=== PATIENT | male | born 1945 | race Caucasian/White ===

== ENCOUNTER → 2018-01-11 07:17 | Outpatient (CLI) | payer MEDICARE, BC, SELFPAY | PROVIDERS: PCP Specialist/Technologist Athletic Trainer; Visit Provider Surgery | DX: T81.4XXD Infection following a procedure, subsequent encounter (principal); K55.031 Focal (segmental) acute (reversible) ischemia of large intestine; K56.2 Volvulus; K65.8 Other peritonitis; A41.9 Sepsis, unspecified organism; K63.1 Perforation of intestine (nontraumatic) | CPT/HCPCS: 97607 ==

== ENCOUNTER → 2018-02-15 14:49 | Outpatient (BNVA) | payer MEDICARE, BC, SELFPAY | PROVIDERS: PCP Specialist/Technologist Athletic Trainer; Visit Provider Surgery | DX: T81.89XD Other complications of procedures, not elsewhere classified, subsequent encounter (principal) | CPT/HCPCS: 99212 ==

== ENCOUNTER 2018-12-06 14:08 | Inpatient (IN) | payer MEDICARE, BC, SELFPAY ==
[2018-12-06] VITALS (23 sets, daily range): BP systolic 105–157; BP diastolic 57–74; PULSE 90–120; RESP 15–25; TEMP 36.8–38.9; O2SAT 89–95
--- NOTE | 2018-12-06 15:18 | DI.CT_ITS ---
SYMPTOM/DIAGNOSIS: LEFT LOWER INGUINAL PAIN, ? STRANGULATED HERNIA ABDOMINAL AND PELVIC CT: 12/06 CT examination of the abdomen and pelvis was performed with a bolus infusion of 100 cc Omnipaque 350. Images obtained through the lung bases show fibrotic changes. There is diffuse bony demineralization without evidence of acute lumbar spine fracture. Liver is unremarkable in appearance except for a couple tiny low attenuation right hepatic lobe lesions consistent with small cysts or hemangioma. Spleen is unremarkable in appearance. Pancreas appears normal. Gallbladder and bile ducts are CT normal. Abdominal aorta is of normal diameter and no major vascular abnormality is seen. Probable tiny bilateral renal cysts noted. Renal vascular calcification noted on the left. No evidence of hydronephrosis or nephrolithiasis. Urinary bladder has a somewhat thickened wall. Tiny bilateral fat containing inguinal hernias noted. There has apparently been a right hemicolectomy and ileocolonic anastomosis. No evidence of obstruction at the anastomotic site. Diffuse distension of colon and small bowel noted. No definite transition point identified in small bowel or colon. Findings may represent ileus. No gross abdominal or pelvic adenopathy seen. No free intraperitoneal air seen. CONCLUSION: Findings suggesting ileus, early obstruction of small or large bowel not entirely excluded but unlikely Appropriate follow up studies requested.
--- NOTE | 2018-12-06 15:21 | W.ED.GENAD ---
Discharge Plan Disposition Patient Disposition: [facility] INPATIENT Condition: Stable Discharge Details Chief Complaint: Cellulitis Clinical Impression: Left inguinal pain, SBO (small bowel obstruction) Primary Care Provider: Castillo Kearns ED Provider: Raf Solis Home Meds and New Rx's Prescriptions: No Action atorvastatin [Lipitor] 20 MG tablet 20 mg PO DAILY RF: 0 amlodipine 10 MG tablet 10 mg PO DAILY RF: 0 sildenafil [Viagra] 25 MG tablet 20 mg PO PRN PRNRF: 0 aspirin [Aspirin Low-Strength] 81 MG tablet,chewable 81 mg PO DAILY RF: 0 multivitamin 1 EACH capsule 1 cap PO DAILY RF: 0 glucosam-chond bx-cbfzio-iq ac 1 EACH capsule 1 tab PO DAILY RF: 0 acetaminophen [Tylenol] 325 MG tablet 650 mg PO Q6H PRN PRNRF: 0 ibuprofen [Advil] 200 mg Tablet 400 mg PO RF: 0 Medical Decision Making 73 yo male comes in with increasing left inguinal area pain for 3 days that worsened today with some overyling rendess. Denies vomit. Has not had a fever. On exam has no pain in the abdomen but has diffuse redness of the left inguinal area and mid inguinal bulge that is extremely tender to touch. I suspect likely strangulated vs incarcerated hernia, will obtain labs and ct imaging to further evaluate for this vs less likely other causes such as abscess. No crepitus to suggest nec fasc pt remains stable, labs show no acute significant findings, awaiting imaging imaging shows no hernia but does have inguinal adenopathy and also has sbo vs ileus, qusetion hernia that resolved. Spoke with Dr. Nina from surgery who will admit for possible sbo and will give dose of iv abx for possible cellulitis in left inguinal region Differential Diagnosis incarcerated hernia, cellulitis, abscess Imaging Data Radiologic Study: Attestation: I personally reviewed and interpreted this imaging study as follows: Imaging: CT Scan Radiologist's impression: IMPRESSION: 1. Differential diagnoses includes: Ileus versus partial small bowel obstruction. No evidence of bowel perforation. Close followup is advised. 2. Nonspecific prominent retroperitoneal and left inguinal lymph nodes. Lab Data Lab results reviewed: Yes I reviewed the patient's lab results. HPI General Mode of arrival: ambulatory. Date/Time Provider Initiated Documentation: 12/06/18 15:09. Limitations to Documentation: no limitations. Information obtained by: patient. History of Present Illness 73 year old M presents to the emergency department with the chief complaint of left inguinal pain , described as moderate and severe, Quality is described as stabbing and aching, and is localized to the abdomen (left inguinal area). Patient started experiencing this day(s) (3) and it has been constant. No relieving factors improve symptom(s), No exacerbating factors reported . Patient notes no other symptoms.. Patient did receive the following treatments prior to arrival, none Related Data Home Medications Medication Instructions Recorded Confirmed amlodipine 10 mg PO DAILY 12/04/17 12/06/18 aspirin [Aspirin Low-Strength] 81 mg PO DAILY 12/04/17 12/06/18 atorvastatin [Lipitor] 20 mg PO DAILY 12/04/17 12/06/18 glucosam-chond at-dnoutk-rq ac 1 tab PO DAILY 12/04/17 12/06/18 multivitamin 1 cap PO DAILY 12/04/17 12/06/18 sildenafil [Viagra] 20 mg PO PRN PRN 12/04/17 12/06/18 acetaminophen [Tylenol] 650 mg PO Q6H PRN PRN tab 12/25/17 12/06/18 ibuprofen [Advil] 400 mg PO 12/06/18 Previous Rx's Medication Instructions Recorded acetaminophen [Tylenol] 650 mg PO Q6H PRN PRN tab 12/25/17 Allergies Allergy/AdvReac Type Severity Reaction Status Date / Time candesartan [From Atacand] Allergy Mild Other (See Verified 12/06/18 14:33 Comment) lisinopril AdvReac Mild Other (See Verified 12/06/18 14:33 Comment) General Stated Complaint: Cellulitis CANDY: 3 Review of Systems Review of Systems All systems reviewed & are unremarkable except as noted in HPI and below Constitutional Denies chills, Denies fever(s) and Denies weakness Cardiovascular Denies chest pain and Denies dyspnea Respiratory Denies cough and Denies dyspnea Gastrointestinal Denies nausea and Denies vomiting Genitourinary Denies dysuria Musculoskeletal Denies joint swelling Neurologic Denies weakness PFSH Social History Smoking/Tobacco Use Status: Current every day Alcohol Intake: current Alcohol Intake frequency: 3 or more drinks per day Substance use type: does not use Do you feel safe at home: Yes Do you feel safe in your relationship?: Yes Exam Const General: no acute distress Orientation: alert HENMT Head: normal to inspection Ears: external ears normal General nose exam: external nose normal Mouth: moist mucous membranes Eyes General: appearance normal, both eyes and all related structures Neck Neck: normal visual inspection Resp Effort & Inspection: normal respiratory effort and able to speak in complete sentences Cardio Rate: regular rate Skin General skin exam: elasticity normal Neuro General: alert and oriented x3 Extrem General: normal to inspection Psych Mental Status: mental status grossly normal Course Vital Signs Temperature 36.8 C 12/06/18 14:29 Pulse 90 12/06/18 14:29 Respiratory Rate 16 12/06/18 14:29 Blood Pressure 144/74 H 12/06/18 14:29 Pulse Oximetry 95 12/06/18 14:29 Temperature 36.8 C 12/06/18 14:29 Temperature Source Temporal Artery Scan 12/06/18 14:29 Pulse 90 12/06/18 14:29 Respiratory Rate 16 12/06/18 14:29 Respiratory Effort 12/06/18 14:36 Blood Pressure 144/74 H 12/06/18 14:29 Pulse Oximetry 95 12/06/18 14:29 Oxygen Delivery Method Room Air 12/06/18 14:29 Oxygen Flow Rate 0 12/06/18 14:29 Pain Level 6 12/06/18 14:29 Lab/Test Results Lab/Test Results: 12/06/18 15:19 Blood Blood Culture - Pending 12/06/18 15:19 Blood Blood Culture - Pending
--- NOTE | 2018-12-06 15:24 | ED.GENADUL_ITS ---
Discharge Plan Disposition Patient Disposition: [facility] INPATIENT Condition: Stable Discharge Details Chief Complaint: Cellulitis Clinical Impression: Left inguinal pain, SBO (small bowel obstruction) Primary Care Provider: Castillo Kearns ED Provider: Raf Solis Home Meds and New Rx's Prescriptions: No Action atorvastatin [Lipitor] 20 MG tablet 20 mg PO DAILY RF: 0 amlodipine 10 MG tablet 10 mg PO DAILY RF: 0 sildenafil [Viagra] 25 MG tablet 20 mg PO PRN PRNRF: 0 aspirin [Aspirin Low-Strength] 81 MG tablet,chewable 81 mg PO DAILY RF: 0 multivitamin 1 EACH capsule 1 cap PO DAILY RF: 0 glucosam-chond sd-sitxmy-ij ac 1 EACH capsule 1 tab PO DAILY RF: 0 acetaminophen [Tylenol] 325 MG tablet 650 mg PO Q6H PRN PRNRF: 0 ibuprofen [Advil] 200 mg Tablet 400 mg PO RF: 0 Medical Decision Making 73 yo male comes in with increasing left inguinal area pain for 3 days that wors ened today with some overyling rendess. Denies vomit. Has not had a fever. On exam has no pain in the abdomen but has diffuse redness of the left inguinal area and mid inguinal bulge that is extremely tender to touch. I suspect likely strangulated vs incarcerated hernia, will obtain labs and ct imaging to further evaluate for this vs less likely other causes such as abscess. No crepitus to suggest nec fasc pt remains stable, labs show no acute significant findings, awaiting imaging imaging shows no hernia but does have inguinal adenopathy and also has sbo vs ileus, qusetion hernia that resolved. Spoke with Dr. Nina from surgery who will admit for possible sbo and will give dose of iv abx for possible cellulitis in left inguinal region Differential Diagnosis incarcerated hernia, cellulitis, abscess Imaging Data Radiologic Study: Attestation: I personally reviewed and interpreted this imaging study as follows: Imaging: CT Scan Radiologist's impression: IMPRESSION: 1. Differential diagnoses includes: Ileus versus partial small bowel obstruction. No evidence of bowel perforation. Close followup is advised. 2. Nonspecific prominent retroperitoneal and left inguinal lymph nodes. Lab Data Lab results reviewed: Yes I reviewed the patient's lab results. HPI General Mode of arrival: ambulatory . Date/Time Provider Initiated Documentation: 12/06/18 15:09 . Limitations to Documentation: no limitations . Information obtained by: patient . History of Present Illness 73 year old M presents to the emergency department with the chief complaint of left inguinal pain , described as moderate and severe, Quality is described as stabbing and aching, and is localized to the abdomen (left inguinal area). Patient started experiencing this day(s) (3) and it has been constant. No relieving factors improve symptom(s), No exacerbating factors reported . Patient notes no other symptoms.. Patient did receive the following treatments prior to arrival, none Related Data Home Medications Medication Instructions Recorded Confirmed amlodipine 10 mg PO DAILY 12/04/17 12/06/18 aspirin [Aspirin Low-Strength] 81 mg PO DAILY 12/04/17 12/06/18 atorvastatin [Lipitor] 20 mg PO DAILY 12/04/17 12/06/18 glucosam-chond dt-izkbcz-iy ac 1 tab PO DAILY 12/04/17 12/06/18 multivitamin 1 cap PO DAILY 12/04/17 12/06/18 sildenafil [Viagra] 20 mg PO PRN PRN 12/04/17 12/06/18 acetaminophen [Tylenol] 650 mg PO Q6H PRN PRN tab 12/25/17 12/06/18 ibuprofen [Advil] 400 mg PO 12/06/18 Previous Rx's Medication Instructions Recorded acetaminophen [Tylenol] 650 mg PO Q6H PRN PRN tab 12/25/17 Allergies Allergy/AdvReac Type Severity Reaction Status Date / Time candesartan [From Atacand] Allergy Mild Other (See Verified 12/06/18 14:33 Comment) lisinopril AdvReac Mild Other (See Verified 12/06/18 14:33 Comment) General Stated Complaint: Cellulitis CANDY: 3 Review of Systems Review of Systems All systems reviewed & are unremarkable except as noted in HPI and below Constitutional Denies chills, Denies fever(s) and Denies weakness Cardiovascular Denies chest pain and Denies dyspnea Respiratory Denies cough and Denies dyspnea Gastrointestinal Denies nausea and Denies vomiting Genitourinary Denies dysuria Musculoskeletal Denies joint swelling Neurologic Denies weakness PFSH Social History Smoking/Tobacco Use Status: Current every day Alcohol Intake: current Alcohol Intake frequency: 3 or more drinks per day Substance use type: does not use Do you feel safe at home: Yes Do you feel safe in your relationship?: Yes Exam Const General: no acute distress Orientation: alert HENMT Head: normal to inspection Ears: external ears normal General nose exam: external nose normal Mouth: moist mucous membranes Eyes General: appearance normal, both eyes and all related structures Neck Neck: normal visual inspection Resp Effort & Inspection: normal respiratory effort and able to speak in complete sentences Cardio Rate: regular rate Skin General skin exam: elasticity normal Neuro General: alert and oriented x3 Extrem General: normal to inspection Psych Mental Status: mental status grossly normal Course Vital Signs Temperature 36.8 C 12/06/18 14:29 Pulse 90 12/06/18 14:29 Respiratory Rate 16 12/06/18 14:29 Blood Pressure 144/74 H 12/06/18 14:29 Pulse Oximetry 95 12/06/18 14:29 Temperature 36.8 C 12/06/18 14:29 Temperature Source Temporal Artery Scan 12/06/18 14:29 Pulse 90 12/06/18 14:29 Respiratory Rate 16 12/06/18 14:29 Respiratory Effort 12/06/18 14:36 Blood Pressure 144/74 H 12/06/18 14:29 Pulse Oximetry 95 12/06/18 14:29 Oxygen Delivery Method Room Air 12/06/18 14:29 Oxygen Flow Rate 0 12/06/18 14:29 Pain Level 6 12/06/18 14:29 Lab/Test Results Lab/Test Results: 12/06/18 15:19 Blood Blood Culture - Pending 12/06/18 15:19 Blood Blood Culture - Pending
[2018-12-06 15:59] LABS: Lactate-non-spesis 1.1 mmol/l (0.6-1.4)
[2018-12-06] MEDS: Ondansetron 4 MG/2 ML VIAL IVP (16:00)
[2018-12-06] MEDS: Normal Saline 1,000 ML 1000 ML IV (16:00)
[2018-12-06 16:01] LABS: Abs Immature Grans 0.01 k/cumm (0.0-0.09); Absolute Basophil Count 0.02 k/cumm (0.0-0.2); Absolute Eosinophil Count 0.04 k/cumm (0.0-0.7); Absolute Lymphocyte Count 0.89 k/cumm (1.2-3.4); Basophils % 0.2; Eosinophils % 0.4; HCT 43.9 % (40.0-50.0); HGB 15.4 g/dL (13.5-17.5); Immature Grans % 0.1; Lymphocytes % 9.4; Mean Corp. HGB Concentration 35.1 g/dL (32.0-36.0); Mean Corpuscular Volume 91.1 fL (80-95); Mean Platelet Volume 10.7 fL (8.0-11.0); Monocytes % 11.6; Neutrophils % 78.3; Platelet Count 200 x1000/uL (130-400); RBC 4.82 m/cumm (4.50-6.00); RBC Distribution Width 14.5 % (11.8-14.1); White Blood Cell Count 9.46 k/cumm (4.4-10.8)
[2018-12-06] MEDS: fentaNYL 100 MCG/2 ML VIAL 75 MCG IVP (16:05)
[2018-12-06 16:13] LABS: PTT Activated 28.2 sec (21.0-31.4); Prothrombin Time 9.8 sec (9.3-11.0)
[2018-12-06 16:27] LABS: ALT 50 U/L (12-78); AST 34 U/L (15-37); Albumin 3.5 g/dL (3.4-5.0); Alkaline Phosphatase 125 U/L (46-116); Anion Gap 12.8 mmol/L (3-11); BUN 12 mg/dL (7-18); Bilirubin, Total 0.6 mg/dL (0.2-1.0); CO2 24.2 mmol/L (21.0-32.0); CREATININE 0.78 mg/dL (0.70-1.30); Chloride 101 mmol/L (98-107); Glucose 113 mg/dL (70-100); Lipase 69 U/L (73-393); Magnesium 1.7 mg/dL (1.8-2.4); Potassium 3.8 mmol/L (3.5-5.1); Sodium 138 mmol/L (136-145); Total Protein 7.7 g/dL (6.4-8.2)
[2018-12-06] MEDS: Omnipaque 350 MG/ML 100 ML BTL IJ (16:48)
--- NOTE | 2018-12-06 17:40 | DI.VRAD_ITS ---
EXAM: CT Abdomen and Pelvis With Contrast EXAM DATE/TIME: 12/06/2018 3:21 PM CLINICAL HISTORY: 73 years old, male; Abdominal pain TECHNIQUE: Imaging protocol: Axial computed tomography images of the abdomen and pelvis with intravenous contrast. Coronal and sagittal reformatted images were created and reviewed. COMPARISON: CT ABD PELVIS WITH CONTRAST 12/16/2017 9:37 AM FINDINGS: Lungs: Stable chronic interstitial lung disease, emphysema, and COPD without acute findings of the lung bases. Liver: Normal. No mass. Gallbladder and bile ducts: Normal. No calcified stones. No ductal dilation. Pancreas: Normal. No ductal dilation. Spleen: Normal. No splenomegaly. Adrenals: Normal. No mass. Kidneys and ureters: Bilateral hypodense renal lesions are too small to small to characterize but most likely benign representing cysts. A crescentic calcification in the left renal hilum is felt to be vascular in etiology. No acute renal findings. No obstructive uropathy. Stomach and bowel: There is diffuse fluid and gaseous dilation of small and large bowel loops seen throughout the abdomen. There are several nondistended segments seen in the right hemiabdomen and left upper quadrant, presumably of small bowel. A gradual transition is seen at the level of the distal ileum on image 48 series 4 and image 44 series 6. Distal rectal air is still present. There is no significant bowel wall thickening appreciated. Small bowel loops measure up to 4.2 cm in greatest diameter. Large bowel measures up to 5.7 cm in diameter at the level of the transverse colon and up to 8.6 cm at the level of the ascending colon. Please note that the patient appears to be status post partial right hemicolectomy. Appendix: There has been an appendectomy. Intraperitoneal space: There is a small amount of fluid versus scarring tracking along the right pelvic sidewall. No pneumoperitoneum. No fluid collections. Vasculature: The vasculature demonstrates diffuse marked atherosclerotic calcification. Lymph nodes: There are several prominent lymph nodes identified in the left inguinal region, as well as in the retroperitoneal and. These are nonspecific. Bladder: Unremarkable as visualized. Reproductive: Unremarkable as visualized. Bones/joints: No acute skeletal pathology. Severe multilevel degenerative changes of the spine, as manifested by multilevel anterior osteophytes and multilevel decrease in intervertebral disc space. Soft tissues: Small bilateral fat-containing inguinal hernias are appreciated. IMPRESSION: 1. Differential diagnoses includes: Ileus versus partial small bowel obstruction. No evidence of bowel perforation. Close followup is advised. 2. Nonspecific prominent retroperitoneal and left inguinal lymph nodes. THIS REPORT CONTAINS FINDINGS THAT MAY BE CRITICAL TO PATIENT CARE. The findings were verbally communicated via telephone conference with Raf Solis at 5:40 PM EDT on 12/06/2018. The findings were acknowledged and understood. Dictated and Authenticated by: Torsten Qureshi MD. Ordering:SENAIT Carbone MD
[2018-12-06] MEDS: cefTRIAXone 2 GM/50 ML BAG IVPB (18:00)
[2018-12-06] MEDS: Lactated Ringers 1,000 ML 75 ML IV (20:24)
[2018-12-06] MEDS: Normal Saline Flush 10 ML SYR IVP (20:24)
[2018-12-06] MEDS: CLINDAMYCIN 600 MG/50 ML BAG 100 MG IVPB (20:24)
[2018-12-06] MEDS: Acetaminophen 325 MG TAB 650 MG PO (23:28)
[2018-12-07] VITALS (11 sets, daily range): BP systolic 90–110; BP diastolic 54–67; PULSE 52–75; RESP 16–20; TEMP 35.9–38.5; O2SAT 92–95
[2018-12-07] MEDS: CLINDAMYCIN 600 MG/50 ML BAG 100 MG IVPB (01:16)
[2018-12-07] MEDS: Normal Saline Flush 10 ML SYR IVP (01:16)
[2018-12-07 07:33] LABS: Abs Immature Grans 0.02 k/cumm (0.0-0.09); Absolute Basophil Count 0.03 k/cumm (0.0-0.2); Absolute Eosinophil Count 0.05 k/cumm (0.0-0.7); Basophils % 0.3; Eosinophils % 0.5; HCT 39.9 % (40.0-50.0); HGB 13.6 g/dL (13.5-17.5); Immature Grans % 0.2; Mean Corp. HGB Concentration 34.1 g/dL (32.0-36.0); Mean Corpuscular Hemoglobin 31.5 pg (27.0-33.0); Mean Corpuscular Volume 92.4 fL (80-95); Mean Platelet Volume 10.7 fL (8.0-11.0); Platelet Count 191 x1000/uL (130-400); RBC 4.32 m/cumm (4.50-6.00); RBC Distribution Width 14.6 % (11.8-14.1); White Blood Cell Count 9.85 k/cumm (4.4-10.8)
[2018-12-07 07:48] LABS: Anion Gap 10.3 mmol/L (3-11); BUN 13 mg/dL (7-18); CO2 23.7 mmol/L (21.0-32.0); CREATININE 0.67 mg/dL (0.70-1.30); Calcium 8.3 mg/dL (8.5-10.1); Chloride 104 mmol/L (98-107); Glucose 94 mg/dL (70-100); Potassium 3.7 mmol/L (3.5-5.1); Sodium 138 mmol/L (136-145)
[2018-12-07 08:15] LABS: Absolute Lymphocyte Count 1.08 k/cumm (1.2-3.4); Absolute Neutrophil Count 7.19 k/cumm (1.2-6.7)
[2018-12-07 08:16] LABS: Absolute Monocyte Count 1.58 k/cumm (0.11-0.7); Atypical Lymphocytes % 1; Diff Comment Manual Differential; RBC Morphology Normal
[2018-12-07] MEDS: Aspirin 81 MG CHEW PO (08:18)
[2018-12-07] MEDS: Atorvastatin 20 MG TAB PO (08:18)
[2018-12-07] MEDS: amLODIPine 10 MG TAB PO (08:18)
[2018-12-07] MEDS: Acetaminophen 325 MG TAB 650 MG PO ×2 (08:43→14:33)
[2018-12-07] MEDS: PIPERACILLIN/TAZO 3.375 GM in Normal Saline 50 ML IVPB ×3 (08:43→19:57)
[2018-12-07] MEDS: Lactated Ringers 1,000 ML 75 ML IV (11:25)
--- NOTE | 2018-12-07 12:13 | W.PM.HP.N ---
Date of service: 12/07/18 Time of Service: 07:40 Assessment and Plan (1) Cellulitis: Current visit: Yes Status: Acute The patient will be admitted for IV antibiotics. There is no clinical or CT evidence of an abscess to drain, but will monitor for this. Qualifiers: Site of cellulitis of trunk: groin History of Present Illness Narrative: This patient presented to the emergency department with complaints of left groin pain for a few days. The day of admission he also had erythema that developed in the left groin. He has not had any obvious fever at home. Patient can recall no injury or laceration to the extremity. He had a CT scan of the abdomen and pelvis that showed evidence of some groin lymphadenopathy as well as retroperitoneal adenopathy. He also was noted to have some nonspecific dilation of the small bowel. The patient denies any abdominal pain or vomiting. He did have some nausea that has resolved. He is passing flatus and having bowel movements. Review of Systems Constitutional Denies fatigue and Denies headache(s) Eyes Denies change in vision ENT Denies headache(s) and Denies neck mass Cardiovascular Denies chest pain, Denies edema, Denies palpitations and Denies dyspnea Respiratory Denies cough, Denies dyspnea and Denies wheezing Gastrointestinal Denies abdominal pain, Denies hematochezia and Denies change in bowel habits Genitourinary Denies dysuria Musculoskeletal Denies joint swelling Neurologic Denies confusion, Denies headache(s) and Denies focal weakness Psychiatric Reports system reviewed and no additional complaints, except as docu and Denies confusion Endocrine Denies fatigue and Denies palpitations Hematologic/Lymphatic Denies easy bleeding Allergic/Immunologic Denies wheezing PFSH Medical History Carotid stenosis (Acute) Hyperlipidemia (Acute) Hypertension (Chronic) Nephrolithiasis (Chronic) Surgical History S/P appendectomy (Resolved) S/P left colectomy (Resolved) Total knee replacement status (Resolved) Family History Mother Breast cancer Father Stroke Social History Smoking/Tobacco Use Status: Current every day Alcohol Intake: current Alcohol Intake frequency: 3 or more drinks per day Substance use type: does not use Do you feel safe at home: Yes Do you feel safe in your relationship?: Yes Meds Home Medications Medication Instructions Recorded Confirmed Type amlodipine 10 mg PO DAILY 12/04/17 12/06/18 History aspirin [Aspirin Low-Strength] 81 mg PO DAILY 12/04/17 12/06/18 History atorvastatin [Lipitor] 20 mg PO DAILY 12/04/17 12/06/18 History glucosam-chond au-yarsex-od ac 1 tab PO DAILY 12/04/17 12/06/18 History multivitamin 1 cap PO DAILY 12/04/17 12/06/18 History sildenafil [Viagra] 20 mg PO PRN PRN 12/04/17 12/06/18 History acetaminophen [Tylenol] 650 mg PO Q6H PRN PRN tab 12/25/17 12/06/18 Rx ibuprofen [Advil] 400 mg PO 12/06/18 History Allergies Allergy/AdvReac Type Severity Reaction Status Date / Time candesartan [From Atacand] Allergy Mild Other (See Verified 12/06/18 14:33 Comment) lisinopril AdvReac Mild Other (See Verified 12/06/18 14:33 Comment) Exam Const General: healthy appearing and not in acute distress Nutritional Appearance: well nourished Orientation: oriented x3 HENMT Head: normal to inspection Eyes Sclera: sclerae normal Pupils: PERRL Neck Neck: no lymphadenopathy Thyroid: thyroid normal Carotids: no bruits Lymphatic: no lymphadenopathy noted Resp Effort & Inspection: normal respiratory effort Auscultation: clear to auscultation bilaterally and no wheezes Cardio Rate: regular rate Rhythm: regular rhythm Pulses: dorsalis pedis pulses present GI Inspection: non-distended Palpation: soft, no hepatosplenomegaly and nontender Other: Midline incision with nontender upper midline fascial defect. Skin Other: Left groin with erythema extending to lateral hip. 3cm palpable node present No abscess No hernia Neuro General: alert Cognition: normal cognition Extrem General: normal to inspection Psych Affect: normal affect Attitude: cooperative Results Labs : 12/07/18 06:50 12/07/18 06:56 Laboratory Results - last 24 hr 12/06/18 12/06/18 12/06/18 15:50 15:50 15:50 WBC 9.46 RBC 4.82 Hgb 15.4 Hct 43.9 MCV 91.1 MCH 32.0 MCHC 35.1 RDW 14.5 H Plt Count 200 MPV 10.7 Immature Gran % 0.1 Neutrophils % 78.3 Band Neutrophils % Lymphocytes % 9.4 Atypical Lymphs % Monocytes % 11.6 Eosinophils % 0.4 Basophils % 0.2 Absolute Neutrophils 7.40 H Absolute Lymphocytes 0.89 L Absolute Monocytes 1.10 H Absolute Eosinophils 0.04 Absolute Basophils 0.02 Differential Comment RBC Morphology PT INR APTT Sodium 138 Potassium 3.8 Chloride 101 Carbon Dioxide 24.2 Anion Gap 12.8 H BUN 12 Creatinine 0.78 Estimated GFR/1.73 m2 >= 60.00 Glucose 113 H Lactate 1.1 Calcium 9.0 Magnesium 1.7 L Total Bilirubin 0.6 AST 34 ALT 50 Alkaline Phosphatase 125 H Total Protein 7.7 Albumin 3.5 Lipase 69 L 12/06/18 12/07/18 12/07/18 15:50 06:50 06:56 WBC 9.85 RBC 4.32 L Hgb 13.6 Hct 39.9 L MCV 92.4 MCH 31.5 MCHC 34.1 RDW 14.6 H Plt Count 191 MPV 10.7 Immature Gran % 0.2 Neutrophils % 65.0 Band Neutrophils % 8.0 Lymphocytes % 10.0 Atypical Lymphs % 1 Monocytes % 16.0 Eosinophils % 0.5 Basophils % 0.3 Absolute Neutrophils 7.19 H Absolute Lymphocytes 1.08 L Absolute Monocytes 1.58 H Absolute Eosinophils 0.05 Absolute Basophils 0.03 Differential Comment Manual differential RBC Morphology Normal PT 9.8 INR 1.0 APTT 28.2 Sodium 138 Potassium 3.7 Chloride 104 Carbon Dioxide 23.7 Anion Gap 10.3 BUN 13 Creatinine 0.67 L Estimated GFR/1.73 m2 >= 60.00 Glucose 94 Lactate Calcium 8.3 L Magnesium Total Bilirubin AST ALT Alkaline Phosphatase Total Protein Albumin Lipase Last Vital Signs Temp 99.0 F 12/07/18 09:43 Pulse 75 12/07/18 07:40 Resp 18 12/07/18 07:40 BP 104/62 12/07/18 07:40 Pulse Ox 92 L 12/07/18 07:40
--- NOTE | 2018-12-07 14:23 | CHAPLAIN ---
Murphy was sitting up in his chair. He said his will be in later to visit. He did not seem interested in a longer conversation.
--- NOTE | 2018-12-07 16:09 | PDOC.CMIN ---
Care Management Initial Assess REASON FOR HOSPITALIZATION:: Cellulitis PAST MEDICAL HISTORY/PAST SURGICAL HISTORY:: Hypertension, Hyperlipidemia, Caarotid artery stenosis, heart murmur. Surgical: Appendectomy, Bilateral TKR, Bilateral carotid stents. PREVIOUS FUNCTIONAL STATUS/SOCIAL/FAMILY SUPPORTS:: Murphy resides alone in [place], [place]. His significant other, Jyoti is his main support person. ADVANCE DIRECTIVES:: None on file at [facility]. Has patient been provided with information about the portal?: Yes Did the patient sign up for the portal?: No CODE STATUS:: Full Code INSURANCE COVERAGE / FINANCIAL ISSUES:: Medicare. /BS PRIMARY CARE PHYSICIAN:: OLINDA Hurtado POTENTIAL DISCHARGE NEEDS:: Follow up appointments. PATIENT/FAMILY EDUCATION NEEDS:: Review of discharge instructions, discuss Ask Me Three. ANTICIPATED BARRIERS TO DISCHARGE:: None identified. TRANSPORTATION:: Via private vehicle with his scowman, Jyoti. PLAN:: Murphy will continue to be closely monitored. He will return home when ready per MD. He will transport via private vehicle with his significant other, Jyoti.
--- NOTE | 2018-12-07 16:33 | INITIAL_ITS ---
Care Management Initial Assess REASON FOR HOSPITALIZATION:: Cellulitis PAST MEDICAL HISTORY/PAST SURGICAL HISTORY:: Hypertension, Hyperlipidemia, Caarotid artery stenosis, heart murmur. Surgical: Appendectomy, Bilateral TKR, Bilateral carotid stents. PREVIOUS FUNCTIONAL STATUS/SOCIAL/FAMILY SUPPORTS:: Murphy resides alone in [place], [place]. His significant other, Jyoti is his main support person. ADVANCE DIRECTIVES:: None on file at [facility]. Has patient been provided with information about the portal?: Yes Did the patient sign up for the portal?: No CODE STATUS:: Full Code INSURANCE COVERAGE / FINANCIAL ISSUES:: Medicare. /BS PRIMARY CARE PHYSICIAN:: OLINDA Hurtado POTENTIAL DISCHARGE NEEDS:: Follow up appointments. PATIENT/FAMILY EDUCATION NEEDS:: Review of discharge instructions, discuss Ask Me Three. ANTICIPATED BARRIERS TO DISCHARGE:: None identified. TRANSPORTATION:: Via private vehicle with his 3d modeler, Jyoti. PLAN:: Murphy will continue to be closely monitored. He will return home when ready per MD. He will transport via private vehicle with his significant other, Jyoti.
[2018-12-08] MEDS: Lactated Ringers 1,000 ML 75 ML IV ×2 (02:21→15:19)
[2018-12-08] MEDS: PIPERACILLIN/TAZO 3.375 GM in Normal Saline 50 ML IVPB ×4 (02:21→19:48)
[2018-12-08 03:48] VITALS: BP 102/58; PULSE 61; RESP 18; TEMP 36.6; O2SAT 95
--- NOTE | 2018-12-08 07:46 | W.PM.PROGNOT ---
Date of Service Date of service: 12/08/18 Time of Service: 07:46 Assessment and Plan (1) Cellulitis: Current visit: Yes Status: Acute Erythema is improving. Tolerating regular diet. Afebrile overnight Disposition- Continue IV antibitoics, will transition to PO antibiotics when d/c home. Qualifiers: Site of cellulitis of trunk: groin Subjective Interval history since last seen: It's feeling better today. Denies fevers, chills or night sweats. Ambulating in his room independently. Exam Const General: cooperative, healthy appearing and comfortable Orientation: alert and oriented x3 Resp Effort & Inspection: normal respiratory effort, no audible wheezes and no cough Skin Other: Erythema along the left groin which appears to be reseeding from the outline from yesterday. Lymphadenopathy present in the left groin. Less tender to palpation. No area's of fluctulance or fluid collection noted on exam. Objective Objective Clinical Data: Abnormal lab results 12/07/18 12/07/18 Range/Units 06:50 06:56 RBC 4.32 L (4.50-6.00) m/cumm Hct 39.9 L (40.0-50.0) % RDW 14.6 H (11.8-14.1) % Absolute Neutrophils 7.19 H (1.2-6.7) k/cumm Absolute Lymphocytes 1.08 L (1.2-3.4) k/cumm Absolute Monocytes 1.58 H (0.11-0.7) k/cumm Creatinine 0.67 L (0.70-1.30) mg/dL Calcium 8.3 L (8.5-10.1) mg/dL Vital Signs Temperature 36.6 C 12/08/18 03:48 Temperature Source Tympanic 12/08/18 03:48 Pulse 61 12/08/18 03:48 Pulse Rhythm Regular 12/07/18 20:00 Pulse 97 H 12/06/18 19:10 Respiratory Rate 18 12/08/18 03:48 Respiratory Effort Non-Labored 12/07/18 20:00 Respiratory Depth Normal 12/07/18 20:00 Respiratory Pattern Normal 12/07/18 20:00 Blood Pressure 102/58 L 12/08/18 03:48 Blood Pressure Mean 73 12/06/18 19:00 Pulse Oximetry 95 12/08/18 03:48 Oxygen Delivery Method Room Air 12/08/18 03:48 Oxygen Flow Rate 0 12/08/18 03:48 Pain Level 0 12/07/18 23:35 Comment 12/06/18 23:23 Intake & Output 12/07/18 12/08/18 12/08/18 18:59 06:59 18:59 Intake Total 2382.5 / 3611.25 1228.75 / 3611.25 Output Total 400 / 1250 850 / 1250 Balance 1982.5 / 2361.25 378.75 / 2361.25 Intake: IV 1662.5 / 2891.25 1228.75 / 2891.25 Oral 720 / 720 Output: Urine 400 / 1250 850 / 1250 Other: Urine Color Yellow Yellow Urine Appearance Clear Clear Urine Odor None Comment voiding in toilet independantly stool was mixed wth urine couldn't measure Stool Size Copious Stool Characteristics Soft Formed Voiding Methods Urinal Toilet Laboratory Results WBC 9.85 k/cumm (4.4-10.8) 12/07/18 06:50 RBC 4.32 m/cumm (4.50-6.00) L 12/07/18 06:50 Hgb 13.6 g/dL (13.5-17.5) 12/07/18 06:50 Hct 39.9 % (40.0-50.0) L 12/07/18 06:50 MCV 92.4 fL (80-95) 12/07/18 06:50 MCH 31.5 pg (27.0-33.0) 12/07/18 06:50 MCHC 34.1 g/dL (32.0-36.0) 12/07/18 06:50 RDW 14.6 % (11.8-14.1) H 12/07/18 06:50 Plt Count 191 x1000/uL (130-400) 12/07/18 06:50 MPV 10.7 fL (8.0-11.0) 12/07/18 06:50 Immature Gran % 0.2 12/07/18 06:50 Neutrophils % 65.0 12/07/18 06:50 Band Neutrophils % 8.0 % 12/07/18 06:50 Lymphocytes % 10.0 12/07/18 06:50 Atypical Lymphs % 1 12/07/18 06:50 Monocytes % 16.0 12/07/18 06:50 Eosinophils % 0.5 12/07/18 06:50 Basophils % 0.3 12/07/18 06:50 Absolute Neutrophils 7.19 k/cumm (1.2-6.7) H 12/07/18 06:50 Absolute Lymphocytes 1.08 k/cumm (1.2-3.4) L 12/07/18 06:50 Absolute Monocytes 1.58 k/cumm (0.11-0.7) H 12/07/18 06:50 Absolute Eosinophils 0.05 k/cumm (0.0-0.7) 12/07/18 06:50 Absolute Basophils 0.03 k/cumm (0.0-0.2) 12/07/18 06:50 Differential Comment Manual differential 12/07/18 06:50 RBC Morphology Normal 12/07/18 06:50 PT 9.8 sec (9.3-11.0) 12/06/18 15:50 INR 1.0 (0.9-1.1) 12/06/18 15:50 APTT 28.2 sec (21.0-31.4) 12/06/18 15:50 Sodium 138 mmol/L (136-145) 12/07/18 06:56 Potassium 3.7 mmol/L (3.5-5.1) 12/07/18 06:56 Chloride 104 mmol/L (98-107) 12/07/18 06:56 Carbon Dioxide 23.7 mmol/L (21.0-32.0) 12/07/18 06:56 Anion Gap 10.3 mmol/L (3-11) 12/07/18 06:56 BUN 13 mg/dL (7-18) 12/07/18 06:56 Creatinine 0.67 mg/dL (0.70-1.30) L 12/07/18 06:56 Estimated GFR/1.73 m2 >= 60.00 (mL/min/1.73m2) 12/07/18 06:56 Glucose 94 mg/dL (70-100) 12/07/18 06:56 Lactate 1.1 mmol/l (0.6-1.4) 12/06/18 15:50 Calcium 8.3 mg/dL (8.5-10.1) L 12/07/18 06:56 Magnesium 1.7 mg/dL (1.8-2.4) L 12/06/18 15:50 Total Bilirubin 0.6 mg/dL (0.2-1.0) 12/06/18 15:50 AST 34 U/L (15-37) 12/06/18 15:50 ALT 50 U/L (12-78) 12/06/18 15:50 Alkaline Phosphatase 125 U/L (46-116) H 12/06/18 15:50 Total Protein 7.7 g/dL (6.4-8.2) 12/06/18 15:50 Albumin 3.5 g/dL (3.4-5.0) 12/06/18 15:50 Lipase 69 U/L (73-393) L 12/06/18 15:50
[2018-12-08 07:53] VITALS: BP 109/66; PULSE 60; RESP 17; TEMP 36.2; O2SAT 94
[2018-12-08] MEDS: Atorvastatin 20 MG TAB PO (08:13)
[2018-12-08] MEDS: Aspirin 81 MG CHEW PO (08:13)
[2018-12-08] MEDS: amLODIPine 10 MG TAB PO (08:13)
[2018-12-08 11:35] VITALS: BP 102/57; PULSE 57; RESP 18; TEMP 36.1; O2SAT 97
--- NOTE | 2018-12-08 12:07 | PHARADMIT ---
Admission Pharmacy Clinical Review CELLULITIS of Left groin (Observation) Code Status Full Code Current Weight 82 kg Renally Cleared and Narrow Therapeutic Index Meds CrCl~87ml/min QTc Value / Action Taken n/a BP Control, Fever BP 109/66 Afebrile x 24 hrs Pain zero Electrolytes reviewed no labs today, previously K+ 3.7, Mag 1.7 (do not see replacement) DVT Prophylaxis none-ambulating Opiate Usage / Scheduled Bowel Regimen Ordered none/none Plt/SCr for Heparin / Enoxaparin Plt 191 SCr 0.67 INR for Warfarin H/H stable, WBC/Bands H/H 13.6/39.9 WBC 9.85 Antibiotic appropriateness Zosyn/Vanco day#2 Vanco trough today 12/08/18 @ 1500 Cultures and Sensitivities Blood: no growth x 24h Surgical ABX d/c within 24 hr DM control / Insulin Dosing Heart Failure (Check EF%) (RON's, B-Block, Diuretics) Amlodipine IV to PO Switch Home Meds Reviewed Home Meds Not Ordered Glucosamine, Ibuprofen, Viagra Comments Anticipate discharge soon...improving
[2018-12-08 14:55] VITALS: BP 110/64; PULSE 54; RESP 18; TEMP 36.9; O2SAT 94
[2018-12-08 15:48] LABS: Vancomycin, Trough 13.6 ug/mL (10.0-20.0)
--- NOTE | 2018-12-08 16:28 | PDOC.CMPRO ---
Care Management Progress Note S/O: Murphy was sitting in his chair when CM met with him. His was at his side. Both were pleasant in interaction and shared no concerns at this time. CM continues to follow. A: 73 year old male admitted 12/06/18 to [facility] for Cellulitis P: Murphy will return home when ready per MD. He will follow up with his PCP and plan of care as prescribed. He will transport via private vehicle with his .
[2018-12-08] MEDS: VANCOMYCIN 1,500 MG in Normal Saline 250 ML 166.667 MG IV (16:32)
[2018-12-08 19:45] VITALS: BP 103/64; PULSE 60; RESP 16; TEMP 36.4; O2SAT 94
[2018-12-08 23:40] VITALS: BP 102/54; PULSE 58; RESP 18; TEMP 36.4; O2SAT 95
[2018-12-08] MEDS: VANCOMYCIN 1,500 MG in Normal Saline 250 ML 167 MG IV (23:47)
[2018-12-09] MEDS: PIPERACILLIN/TAZO 3.375 GM in Normal Saline 50 ML IVPB ×2 (02:16→08:13)
[2018-12-09 03:23] VITALS: BP 104/63; PULSE 58; RESP 16; TEMP 36.4; O2SAT 94
[2018-12-09] MEDS: Lactated Ringers 1,000 ML 75 ML IV (06:42)
[2018-12-09] MEDS: Aspirin 81 MG CHEW PO (08:13)
[2018-12-09] MEDS: Atorvastatin 20 MG TAB PO (08:13)
[2018-12-09] MEDS: amLODIPine 10 MG TAB PO (08:13)
[2018-12-09 08:26] VITALS: BP 115/68; PULSE 54; RESP 16; TEMP 36.6; O2SAT 96
[2018-12-09] MEDS: VANCOMYCIN 1,500 MG in Normal Saline 250 ML 167 MG IV (08:56)
--- NOTE | 2018-12-09 09:45 | DSE_ITS ---
Date of service: 12/09/18 Time of Service: 08:50 DS: Diagnosis Discharge Diagnosis (1) Cellulitis: Status: Acute Discharge Plan Disposition Patient Disposition: HOME Condition: Improving Discharge Details Chief Complaint: Cellulitis Clinical Impression: Left inguinal pain, SBO (small bowel obstruction) Reason For Visit: CELLULITIS Admit Date/Time: 12/06/18 18:04 Admit Provider: Loren Nina Attending Provider: Loren Nina Primary Care Provider: Castillo [facility] ED Provider: Raf Solis Hospital Course Hospital Course: This patient presented to the emergency department with left groin pain and redness. He had a CT scan of abdomen pelvis that showed left groin lymphadenopathy with some retroperitoneal adenopathy. On examination he did have a palpable left groin lymph node as well as significant inflammation that extended around towards his left gluteal region. Thepatient was initially start ed on clindamycin which was then switched to vancomycin and Zosyn with improvement in the erythema over the next few days. He did have a temperature as high as 102 the evening of admission but this improved and he was afebrile in the days up to his discharge. His WBC was normal throughout the admission. He will be discharged home on oral antibiotics with a follow-up visit planned for next week. A follow-up ultrasound to be indicated at some point and if the lymphadenopathy does not resolve then lymph node biopsy may also be indicated. Home Meds and New Rx's Prescriptions: New amoxicillin-pot clavulanate 875-125 mg tablet 1 tab PO BID Qty: 14 RF: 0 Continued atorvastatin [Lipitor] 20 MG tablet 20 mg PO DAILY RF: 0 amlodipine 10 MG tablet 10 mg PO DAILY RF: 0 sildenafil [Viagra] 25 MG tablet 20 mg PO PRN PRNRF: 0 aspirin [Aspirin Low-Strength] 81 MG tablet,chewable 81 mg PO DAILY RF: 0 multivitamin 1 EACH capsule 1 cap PO DAILY RF: 0 glucosam-chond [id number] ac 1 EACH capsule 1 tab PO DAILY RF: 0 acetaminophen [Tylenol] 325 MG tablet 650 mg PO Q6H PRN PRNRF: 0 ibuprofen [Advil] 200 mg Tablet 400 mg PO RF: 0 Discharge Instructions Additional Instructions: Call for any worsening redness or a fever over 100 degrees. Okay to use ice as needed. Stand Alone Forms: Nursing Discharge Form Referrals: Loren Nina MD [ [facility] STAFF PHYSICIAN] - (Call for an office visit on 12/16) Activity:: Activity as Tolerated Equipment/Supplies:: No Equipment Needed Diet:: As Tolerated Discharge Orders Discharge Orders: Discharge Order (Routine); Ordered 12/09/18 Ordered By: Loren Nina Exam Skin Other: Left groin erythema improved. Still present overlying the lymph node and laterally with some induration. No abscess present. DS: Data Vitals/I&O Vitals and I&O: Vital Signs Temperature 97.9 F 12/09/18 08:26 Temperature Source Tympanic 12/09/18 08:26 Pulse 54 L 12/09/18 08:26 Pulse Rhythm Regular 12/09/18 08:00 Pulse 97 H 12/06/18 19:10 Respiratory Rate 16 12/09/18 08:26 Respiratory Effort Non-Labored 12/09/18 08:00 Respiratory Depth Normal 12/09/18 08:00 Respiratory Pattern Normal 12/09/18 08:00 Blood Pressure 115/68 12/09/18 08:26 Blood Pressure Mean 73 12/06/18 19:00 Pulse Oximetry 96 12/09/18 08:26 Oxygen Delivery Method Room Air 12/09/18 08:26 Oxygen Flow Rate 0 12/09/18 08:26 Pain Level 0 12/09/18 03:23 Comment 12/06/18 23:23 Intake & Output 12/08/18 12/08/18 12/09/18 11:59 23:59 11:59 Intake Total 1083.75 / 2830.00 1746.25 / 2830.00 1472.50 / 1472.50 Output Total 850 / 2475 1625 / 2475 1000 / 1000 Balance 233.75 / 355.00 121.25 / 355.00 472.50 / 472.50 Intake: IV 603.75 / 1910.00 1306.25 / 1910.00 1172.50 / 1172.50 Oral 480 / 920 440 / 920 300 / 300 Output: Urine 850 / 2475 1625 / 2475 1000 / 1000 Other: Urine Color Yellow Yellow Straw Urine Appearance Clear Clear Clear Urine Odor None None None Comment stool was mixed wth urine couldn't measure Stool Size Copious Stool Characteristics Soft Formed Voiding Methods Toilet Urinal Urinal Labs on day of discharge: Labs from last 24 hours 12/09/18 12/09/18 12/08/18 15:00 15:00 15:22 Creatinine Pending Estimated GFR/1.73 m2 Pending Vancomycin Trough Pending 13.6 Preliminary micro results at discharge 12/06/18 16:15 Blood Culture - Preliminary Blood NO GROWTH 48 HOURS 12/06/18 16:00 Blood Culture - Preliminary Blood NO GROWTH 48 HOURS [facility] Medical History Carotid stenosis (Acute) Hyperlipidemia (Acute) Hypertension (Chronic) Nephrolithiasis (Chronic) Surgical History S/P appendectomy (Resolved) S/P left colectomy (Resolved) Total knee replacement status (Resolved) Family History Mother Breast cancer Father Stroke Social History Smoking/Tobacco Use Status: Current every day Alcohol Intake: current Alcohol Intake frequency: 3 or more drinks per day Substance use type: does not use Do you feel safe at home: Yes Do you feel safe in your relationship?: Yes
--- NOTE | 2018-12-09 15:06 | PDOC.CMDIS ---
LACE Index Scoring Tool - Questions: Length of Stay (in days): 2 Acuity (Admit via E.D.?): Yes E.D. Visits: 2 - Answers: Total Score: 7 Risk of Readmission: Low Risk Care Management Discharge Reason for Hospitalization: Cellulitis Discharge Plan: Murphy will return home when ready per MD. He will follow up with his PCP and plan of care as prescribed. He will transport via private vehicle with his . Patient/Family Education Needs: Review discharge instructions, discuss Ask Me Three.
== END 2018-12-09 11:02 | disposition home or self-care (01) | DRG 603 ==
LOC: ER 19:13 → MS 12-07 09:45
PROVIDERS: Admitting Provider Surgery; Emergency Provider Emergency Medicine; PCP Specialist/Technologist Athletic Trainer; Visit Provider Surgery
DX: L03.314 Cellulitis of groin (principal); K56.609 Unspecified intestinal obstruction, unspecified as to partial versus complete obstruction; R10.32 Left lower quadrant pain; R59.0 Localized enlarged lymph nodes; I10 Essential (primary) hypertension; E78.5 Hyperlipidemia, unspecified
CPT/HCPCS: 36415; 80048; 80053; 83690; 87040; 96361; 96365; 96375; 99217; 99218; 99219; 99225; 99232; 99238; 99285; 74177; 80202; 82565; 83605; 83735; 85025; 85610; 85730; 99284; G0378; J2405; J2543; J3010; J3370; J3490

== ENCOUNTER → 2018-12-16 11:19 | Outpatient (BNVA) | payer MEDICARE, BC, SELFPAY | PROVIDERS: PCP Specialist/Technologist Athletic Trainer; Visit Provider Surgery | DX: L03.90 Cellulitis, unspecified (principal) | CPT/HCPCS: 99211; 99213 ==

== ENCOUNTER 2019-02-01 00:40 | Outpatient (CLI) | payer MEDICARE, BC, SELFPAY ==
--- NOTE | 2019-02-01 12:14 | DI.US_ITS ---
SYMPTOMS/DIAGNOSIS: FOLLOW UP ON LEFT GROIN LYMPHADENOPATHY, R59.0 ULTRASOUND OF THE LEFT GROIN: Comparison is made with CT of the abdomen and pelvis dated November,. The largest lymph node is seen in the left groin and measures 3.9 cm in length, unchanged from the previous CT. There is a thin hypoechoic rim with central fatty hilum. There is an adjacent 2.3 cm lymph node and additional 10 mm lymph nodes. None of the nodes have a suspicious appearance. IMPRESSION: Stable size of left groin lymph nodes. No suspicious features are seen.
== END 2019-02-01 01:00 ==
PROVIDERS: PCP Specialist/Technologist Athletic Trainer; Visit Provider Surgery
DX: R59.0 Localized enlarged lymph nodes (principal)
CPT/HCPCS: 76882

== ENCOUNTER → 2019-02-07 11:21 | Outpatient (BNVA) | payer MEDICARE, BC, SELFPAY | PROVIDERS: PCP Specialist/Technologist Athletic Trainer; Referring Provider Specialist/Technologist Athletic Trainer; Visit Provider Surgery | DX: R69 Illness, unspecified (principal) ==

== ENCOUNTER 2019-02-07 11:55 | Emergency (ER) | payer MEDICARE, BC, SELFPAY ==
[2019-02-07] VITALS (26 sets, daily range): BP systolic 87–126; BP diastolic 47–76; PULSE 64–132; RESP 11–29; TEMP 36.4; O2SAT 93–97
[2019-02-07 12:52] LABS: Lactate 1.7 mmol/L (0.6-1.4)
[2019-02-07 12:59] LABS: Abs Immature Grans 0.02 k/cumm (0.0-0.09); Absolute Basophil Count 0.02 k/cumm (0.0-0.2); Absolute Eosinophil Count 0.18 k/cumm (0.0-0.7); Absolute Lymphocyte Count 2.01 k/cumm (1.2-3.4); Absolute Monocyte Count 0.93 k/cumm (0.11-0.7); Absolute Neutrophil Count 6.51 k/cumm (1.2-6.7); Basophils % 0.2; Eosinophils % 1.9; HCT 46.4 % (40.0-50.0); HGB 15.8 g/dL (13.5-17.5); Immature Grans % 0.2; Lymphocytes % 20.8; Mean Corp. HGB Concentration 34.1 g/dL (32.0-36.0); Mean Corpuscular Hemoglobin 31.6 pg (27.0-33.0); Mean Corpuscular Volume 92.8 fL (80-95); Mean Platelet Volume 10.5 fL (8.0-11.0); Monocytes % 9.6; Neutrophils % 67.3; Platelet Count 261 x1000/uL (130-400); RBC Distribution Width 15.4 % (11.8-14.1); White Blood Cell Count 9.67 k/cumm (4.4-10.8)
[2019-02-07 13:08] LABS: PTT Activated 25.9 sec (21.0-31.4); Prothrombin Time 9.9 sec (9.3-11.0)
[2019-02-07] MEDS: Normal Saline Flush 10 ML SYR IVP (13:08)
--- NOTE | 2019-02-07 13:18 | ED.GENADUL_ITS ---
Discharge Plan Disposition Patient Disposition: HOME Condition: Improving Discharge Details Chief Complaint: GenMedical Clinical Impression: SVT (supraventricular tachycardia) Primary Care Provider: Castillo Kearns ED Provider: Meseret Biggs Home Meds and New Rx's Prescriptions: Continued atorvastatin [Lipitor] 20 MG tablet 20 mg PO DAILY RF: 0 amlodipine 10 MG tablet 10 mg PO DAILY RF: 0 sildenafil [Viagra] 25 MG tablet 20 mg PO PRN PRNRF: 0 aspirin [Aspirin Low-Strength] 81 MG tablet,chewable 81 mg PO DAILY RF: 0 multivitamin 1 EACH capsule 1 cap PO DAILY RF: 0 glucosam-chond ct-hgsiqd-pw ac 1 EACH capsule 1 tab PO DAILY RF: 0 acetaminophen [Tylenol] 325 MG tablet 650 mg PO Q6H PRN PRNRF: 0 ibuprofen [Advil] 200 mg Tablet 400 mg PO PRN PRNRF: 0 Discharge Instructions Instructions: Supraventricular Tachycardia (ED) Additional Instructions: Drink plenty of fluids and get plenty of rest. Refrain from alcohol use over the next few days. Follow-up with your scheduled appointment with your primary care doctor in 3 days. Return immediately to the emergency department if you develop any worsening or new concerning symptoms. Discharge Data Discharge Date/Time-TO BE ENTERED AT DEPARTURE: 02/07/19 14:59 Discharge Physician: Meseret Biggs Medical Decision Making 1210 -- 73-year-old male with a history of carotid stenosis, hypertension, hyperlipidemia who presents for evaluation after seen for follow-up for lymphadenopathy/cellulitis in his left groin with the surgeon today who was noted to have tachycardia and hypotension. Heart rate 130s on arrival. BP initially 102/76, and 87/66. He has no acute complaints. EKG notes a rate of 128, SVT, no discernible P waves. No acute ST T wave ischemic changes. Cardiac work-up ordered. 1300 -- no change in heart rate with modified Valsalva at bedside x2. BP 112/74. Patient given 6 mg of adenosine with conversion to sinus, heart rate 70s. Patient denies any acute complaints and tolerated well. Repeat EKG notes a rate of 70, sinus and no acute ST-T wave ischemic changes. 1430 -- labs and imaging reviewed and unremarkable. Patient feels much better and is requesting to go home. Vitals have remained stable. He denies any acute complaints. He was advised to follow-up with his primary care doctor for reevaluation and to return here with any worsening or concerning symptoms. Medical Records Medical records reviewed: Yes I reviewed the patient's medical records. Imaging Data Radiologic Study: Radiologist's impression: PORTABLE AP CHEST: The heart is not enlarged. The lungs are grossly clear except for changes of COPD and scarring. No pleural effusion identified on this frontal film. CONCLUSION: No evidence of acute process. Lab Data Lab results reviewed: Yes I reviewed the patient's lab results. 02/07/19 13:07 Blood Blood Culture - Preliminary NO GROWTH 72 HOURS 02/07/19 12:35 Blood Blood Culture - Preliminary NO GROWTH 72 HOURS Laboratory Tests Range/Units 02/07/19 02/07/19 02/07/19 12:35 12:35 12:35 WBC (4.4-10.8) k/cumm 9.67 RBC (4.50-6.00) m/cumm 5.00 Hgb (13.5-17.5) g/dL 15.8 Hct (40.0-50.0) % 46.4 MCV (80-95) fL 92.8 MCH (27.0-33.0) pg 31.6 MCHC (32.0-36.0) g/dL 34.1 RDW (11.8-14.1) % 15.4 H Plt Count (130-400) x1000/uL 261 MPV (8.0-11.0) fL 10.5 Immature Gran % 0.2 Neutrophils % 67.3 Lymphocytes % 20.8 Monocytes % 9.6 Eosinophils % 1.9 Basophils % 0.2 Absolute Neutrophils (1.2-6.7) k/cumm 6.51 Absolute Lymphocytes (1.2-3.4) k/cumm 2.01 Absolute Monocytes (0.11-0.7) k/cumm 0.93 H Absolute Eosinophils (0.0-0.7) k/cumm 0.18 Absolute Basophils (0.0-0.2) k/cumm 0.02 PT (9.3-11.0) sec INR (0.9-1.1) APTT (21.0-31.4) sec Sodium (136-145) mmol/L 139 Potassium (3.5-5.1) mmol/L 4.2 Chloride (98-107) mmol/L 106 Carbon Dioxide (21.0-32.0) mmol/L 25.2 Anion Gap (3-11) mmol/L 7.8 BUN (7-18) mg/dL 15 Creatinine (0.70-1.30) mg/dL 0.86 Estimated GFR/1.73 m2 (mL/min/1.73m2) >= 60.00 Glucose (70-100) mg/dL 143 H Lactate (0.6-1.4) mmol/L 1.7 H Calcium (8.5-10.1) mg/dL 8.9 Magnesium (1.8-2.4) mg/dL 1.9 Total Bilirubin (0.2-1.0) mg/dL 0.5 AST (15-37) U/L 13 L ALT (16-63) U/L 25 Alkaline Phosphatase (46-116) U/L 107 Troponin I (0.00-0.06) ng/mL < 0.05 Total Protein (6.4-8.2) g/dL 6.7 Albumin (3.4-5.0) g/dL 3.4 Urine Color Urine Clarity Urine pH Ur Specific Wellman Urine Protein Urine Ketones Urine Blood Urine Nitrite Urine Bilirubin Urine Urobilinogen Ur Leukocyte Esterase Urine Glucose Range/Units 02/07/19 02/07/19 02/07/19 12:35 13:06 14:10 WBC (4.4-10.8) k/cumm RBC (4.50-6.00) m/cumm Hgb (13.5-17.5) g/dL Hct (40.0-50.0) % MCV (80-95) fL MCH (27.0-33.0) pg MCHC (32.0-36.0) g/dL RDW (11.8-14.1) % Plt Count (130-400) x1000/uL MPV (8.0-11.0) fL Immature Gran % Neutrophils % Lymphocytes % Monocytes % Eosinophils % Basophils % Absolute Neutrophils (1.2-6.7) k/cumm Absolute Lymphocytes (1.2-3.4) k/cumm Absolute Monocytes (0.11-0.7) k/cumm Absolute Eosinophils (0.0-0.7) k/cumm Absolute Basophils (0.0-0.2) k/cumm PT (9.3-11.0) sec 9.9 INR (0.9-1.1) 1.0 APTT (21.0-31.4) sec 25.9 Sodium (136-145) mmol/L Potassium (3.5-5.1) mmol/L Chloride (98-107) mmol/L Carbon Dioxide (21.0-32.0) mmol/L Anion Gap (3-11) mmol/L BUN (7-18) mg/dL Creatinine (0.70-1.30) mg/dL Estimated GFR/1.73 m2 (mL/min/1.73m2) Glucose (70-100) mg/dL Lactate (0.6-1.4) mmol/L Calcium (8.5-10.1) mg/dL Magnesium (1.8-2.4) mg/dL Total Bilirubin (0.2-1.0) mg/dL AST (15-37) U/L ALT (16-63) U/L Alkaline Phosphatase (46-116) U/L Troponin I (0.00-0.06) ng/mL Total Protein (6.4-8.2) g/dL Albumin (3.4-5.0) g/dL Urine Color Cancelled Yellow Urine Clarity Cancelled Clear Urine pH Cancelled 5.5 Ur Specific Wellman Cancelled 1.025 Urine Protein Cancelled Negative Urine Ketones Cancelled Negative Urine Blood Cancelled Negative Urine Nitrite Cancelled Negative Urine Bilirubin Cancelled Negative Urine Urobilinogen Cancelled 0.2 Ur Leukocyte Esterase Cancelled Negative Urine Glucose Cancelled Negative ECG Data Attestation: I personally reviewed and interpreted this ECG (s) as follows: Interpretation: #1 --Rate of 128, SVT, no discernible P waves, no acute ST elevation or depression. QTc 449. QRS 108. #2 --Rate of 70, sinus, no acute ST elevation or depression. AK 170. QTc 410. QRS 89. HPI General Mode of arrival: ambulatory . Date/Time Provider Initiated Documentation: 02/07/19 12:15 . Limitations to Documentation: no limitations . Information obtained by: patient . HPI Narrative: Patient is a 73-year-old male with history of carotid stenosis, hypertension, hyperlipidemia who presents for evaluation of tachycardia and hypotension at surgery office today. Patient was being seen for follow-up with Dr. Nina for left groin lymphadenopathy and cellulitis which she noted to be improving but sent him here for evaluation of heart rate in the 130s and blood pressure of 87/66. Patient was asymptomatic per Dr. Nina. On arrival to the ED, patient denies any acute complaints of headache, dizziness, chest pain, shortness of breath, palpitations. He denies any recent fever, illness, vomiting or diarrhea. Related Data Home Medications Medication Instructions Recorded Confirmed amlodipine 10 mg PO DAILY 12/04/17 02/07/19 aspirin [Aspirin Low-Strength] 81 mg PO DAILY 12/04/17 02/07/19 atorvastatin [Lipitor] 20 mg PO DAILY 12/04/17 02/07/19 glucosam-chond po-puecot-ro ac 1 tab PO DAILY 12/04/17 02/07/19 multivitamin 1 cap PO DAILY 12/04/17 02/07/19 sildenafil [Viagra] 20 mg PO PRN PRN 12/04/17 02/07/19 acetaminophen [Tylenol] 650 mg PO Q6H PRN PRN tab 12/25/17 02/07/19 ibuprofen [Advil] 400 mg PO PRN PRN 12/09/18 02/07/19 Previous Rx's Medication Instructions Recorded acetaminophen [Tylenol] 650 mg PO Q6H PRN PRN tab 12/25/17 Allergies Allergy/AdvReac Type Severity Reaction Status Date / Time candesartan [From Atacand] Allergy Mild Other (See Verified 02/07/19 12:09 Comment) lisinopril AdvReac Mild Other (See Verified 02/07/19 12:09 Comment) General Stated Complaint: GenMedical CANDY: 2 Review of Systems Review of Systems All systems reviewed & are unremarkable except as noted in HPI and below Constitutional Reports as per HPI, Denies chills and Denies fever(s) Eyes Denies blurry vision ENT Denies dizziness, Denies sore throat and Denies throat swelling Cardiovascular Denies chest pain and Denies dyspnea Respiratory Denies cough and Denies dyspnea Gastrointestinal Denies abdominal pain, Denies diarrhea and Denies vomiting Genitourinary Denies hematuria and Denies dysuria Musculoskeletal Denies back pain and Denies numbness Integumentary/Breasts Denies lesions and Denies rash Neurologic Denies dizziness, Denies focal weakness and Denies numbness Allergic/Immunologic Denies throat swelling [facility] Medical History Carotid stenosis (Acute) Hyperlipidemia (Acute) Hypertension (Chronic) Nephrolithiasis (Chronic) Surgical History S/P appendectomy (Resolved) S/P left colectomy (Resolved) Total knee replacement status (Resolved) Family History Mother Breast cancer Father Stroke Social History Smoking/Tobacco Use Status: Current every day Tobacco Type: cigarettes Alcohol Intake: current Alcohol Intake frequency: 3 or more drinks per day Alcohol type: beer Drug use: Never Substance use type: does not use Do you feel safe at home: Yes Do you feel safe in your relationship?: Yes Exam Const General: cooperative, healthy appearing and no acute distress HENMT Head: normal to inspection Face and sinus: normal facial exam Eyes General: appearance normal, both eyes and all related structures EOM: EOM intact bilaterally Neck Neck: normal visual inspection and No submandibular swelling Lymphatic: no lymphadenopathy noted Chest Chest: normal inspection of the chest and no tenderness Resp Effort & Inspection: normal respiratory effort and able to speak in complete sentences Auscultation: clear to auscultation bilaterally Cardio Rate: regular rate Rhythm: regular rhythm GI Inspection: normal to inspection Palpation: soft, not firm, not rigid and nontender Auscultation: normal bowel sounds Skin General skin exam: no rashes or lesions noted Neuro General: alert, awake and oriented x3 Cognition: normal cognition Speech: speech normal Motor: muscle tone normal throughout Sensory Exam: no sensory deficits noted Extrem General: normal to inspection, full ROM, normal capillary refill, no calf tenderness bilaterally and no edema Psych Appearance: grossly normal Mental Status: mental status grossly normal Speech and Movement: speech and movement normal Affect: normal affect Course Vital Signs Temperature 97.5 F L 02/07/19 12:03 Pulse 131 H 02/07/19 12:03 Respiratory Rate 18 02/07/19 12:03 Blood Pressure 102/76 02/07/19 12:03 Pulse Oximetry 94 L 02/07/19 12:03 Temperature 97.5 F L 02/07/19 12:03 Temperature Source Skin 02/07/19 12:03 Pulse 132 H 02/07/19 12:13 Respiratory Rate 18 02/07/19 12:13 Respiratory Effort Non-Labored 02/07/19 12:16 Respiratory Depth Normal 02/07/19 12:16 Respiratory Pattern Normal 02/07/19 12:16 Blood Pressure 87/66 L 02/07/19 12:13 Blood Pressure Position Supine 02/07/19 12:03 Pulse Oximetry 95 02/07/19 12:13 Oxygen Delivery Method Room Air 02/07/19 12:13 Oxygen Flow Rate 0 02/07/19 12:13 Pain Level 0 02/07/19 12:03 Lab/Test Results Lab/Test Results: 02/07/19 13:07 Blood Blood Culture - Pending 02/07/19 12:35 Blood Blood Culture - Pending Laboratory Tests Range/Units 02/07/19 02/07/19 12:35 12:35 WBC (4.4-10.8) k/cumm 9.67 RBC (4.50-6.00) m/cumm 5.00 Hgb (13.5-17.5) g/dL 15.8 Hct (40.0-50.0) % 46.4 MCV (80-95) fL 92.8 MCH (27.0-33.0) pg 31.6 MCHC (32.0-36.0) g/dL 34.1 RDW (11.8-14.1) % 15.4 H Plt Count (130-400) x1000/uL 261 MPV (8.0-11.0) fL 10.5 Immature Gran % 0.2 Neutrophils % 67.3 Lymphocytes % 20.8 Monocytes % 9.6 Eosinophils % 1.9 Basophils % 0.2 Absolute Neutrophils (1.2-6.7) k/cumm 6.51 Absolute Lymphocytes (1.2-3.4) k/cumm 2.01 Absolute Monocytes (0.11-0.7) k/cumm 0.93 H Absolute Eosinophils (0.0-0.7) k/cumm 0.18 Absolute Basophils (0.0-0.2) k/cumm 0.02 Lactate (0.6-1.4) mmol/L 1.7 H
[2019-02-07] MEDS: Adenosine 6 MG/2 ML VIAL (13:20)
--- NOTE | 2019-02-07 13:21 | DI.RAD_ITS ---
SYMPTOMS/DIAGNOSIS: TACHYCARDIA, SUPRAVENTRICULAR, ? ACUTE DISEASE PORTABLE AP CHEST: The heart is not enlarged. The lungs are grossly clear except for changes of COPD and scarring. No pleural effusion identified on this frontal film. CONCLUSION: No evidence of acute process.
[2019-02-07 13:23] LABS: ALT 25 U/L (16-63); AST 13 U/L (15-37); Albumin 3.4 g/dL (3.4-5.0); Alkaline Phosphatase 107 U/L (46-116); Anion Gap 7.8 mmol/L (3-11); BUN 15 mg/dL (7-18); Bilirubin, Total 0.5 mg/dL (0.2-1.0); CO2 25.2 mmol/L (21.0-32.0); CREATININE 0.86 mg/dL (0.70-1.30); Calcium 8.9 mg/dL (8.5-10.1); Chloride 106 mmol/L (98-107); Glucose 143 mg/dL (70-100); Magnesium 1.9 mg/dL (1.8-2.4); Potassium 4.2 mmol/L (3.5-5.1); Sodium 139 mmol/L (136-145); Total Protein 6.7 g/dL (6.4-8.2)
[2019-02-07 13:24] LABS: Troponin I < 0.05 ng/mL (0.00-0.06)
[2019-02-07] MEDS: Normal Saline 1,000 ML 1000 ML IV (14:08)
[2019-02-07 14:30] LABS: Bilirubin Negative (Negative); Blood Negative (Negative); Clarity Clear (Clear); Glucose Negative (Negative); Ketones Negative (Negative); Leukocyte Esterase Negative (Negative); Nitrite Negative (Negative); Specific Gravity 1.025 (1.005-1.025); Urobilinogen 0.2 EU/dL (Up TO 0.2); pH 5.5 (5-8)
== END 2019-02-07 14:59 | disposition home or self-care (01) ==
PROVIDERS: Emergency Provider Physician Assistant; PCP Specialist/Technologist Athletic Trainer
DX: I47.1 Supraventricular tachycardia (principal); I10 Essential (primary) hypertension
CPT/HCPCS: 36415; 80053; 87040; 93005; 96361; 96374; 99213; 99285; 71045; 81003; 83605; 83735; 84484; 85025; 85610; 85730; 93010; J0153

== ENCOUNTER 2019-02-10 14:25 | Outpatient (REF) | payer MEDICARE, BC, SELFPAY ==
[2019-02-10 21:45] LABS: Hemoglobin A1C 5.5 % (4.5-6.2)
[2019-02-10 21:48] LABS: Calculated LDL 75 mg/dL; Cholesterol 138 mg/dL (50-200); HDL Cholesterol 54 mg/dL (40-60); Triglyceride 48 mg/dL (30-150)
== END 2019-02-10 14:45 ==
LOC: NCHCN 14:25
PROVIDERS: PCP Specialist/Technologist Athletic Trainer; Visit Provider Specialist/Technologist Athletic Trainer
DX: E78.5 Hyperlipidemia, unspecified (principal); R73.9 Hyperglycemia, unspecified
CPT/HCPCS: 80061; 83036

== ENCOUNTER 2019-02-22 15:45 | Emergency (ER) | payer MEDICARE, BC, SELFPAY ==
[2019-02-22 15:52] VITALS: BP 115/81; PULSE 138; RESP 27; TEMP 36.6; O2SAT 98
[2019-02-22 16:15] LABS: Abs Immature Grans 0.02 k/cumm (0.0-0.09); Absolute Basophil Count 0.03 k/cumm (0.0-0.2); Absolute Eosinophil Count 0.37 k/cumm (0.0-0.7); Absolute Monocyte Count 0.73 k/cumm (0.11-0.7); Absolute Neutrophil Count 5.16 k/cumm (1.2-6.7); Basophils % 0.3; HCT 46.9 % (40.0-50.0); HGB 16.4 g/dL (13.5-17.5); Immature Grans % 0.2; Lymphocytes % 31.5; Mean Corpuscular Hemoglobin 32.1 pg (27.0-33.0); Mean Corpuscular Volume 91.8 fL (80-95); Mean Platelet Volume 10.3 fL (8.0-11.0); Monocytes % 7.9; Neutrophils % 56.1; Platelet Count 275 x1000/uL (130-400); RBC 5.11 m/cumm (4.50-6.00); RBC Distribution Width 15.6 % (11.8-14.1); White Blood Cell Count 9.21 k/cumm (4.4-10.8)
[2019-02-22] MEDS: Adenosine 6 MG/2 ML VIAL (16:20)
[2019-02-22 16:21] VITALS: RESP 20
--- NOTE | 2019-02-22 16:26 | ED.GENADUL_ITS ---
Discharge Plan Disposition Patient Disposition: HOME Condition: Good Discharge Details Chief Complaint: Dizzy/Sync Clinical Impression: Supraventricular tachycardia Primary Care Provider: Castillo Kearns ED Provider: Alanis Nguyễn Home Meds and New Rx's Prescriptions: Continued atorvastatin [Lipitor] 20 MG tablet 20 mg PO DAILY RF: 0 amlodipine 10 MG tablet 10 mg PO DAILY RF: 0 sildenafil [Viagra] 25 MG tablet 20 mg PO PRN PRNRF: 0 aspirin [Aspirin Low-Strength] 81 MG tablet,chewable 81 mg PO DAILY RF: 0 multivitamin 1 EACH capsule 1 cap PO DAILY RF: 0 glucosam-chond jr-qmvcdp-nl ac 1 EACH capsule 1 tab PO DAILY RF: 0 acetaminophen [Tylenol] 325 MG tablet 650 mg PO Q6H PRN PRNRF: 0 ibuprofen [Advil] 200 mg Tablet 400 mg PO PRN PRNRF: 0 Discharge Instructions Instructions: Supraventricular Tachycardia (ED) Additional Instructions: Push fluids by mouth. Avoid caffeine and alcohol as discussed. Declined have prompt follow-up with primary care doctor and cardiology Rest activities as tolerated. Return for any worsening or concerns sooner if needed Discharge Data Discharge Date/Time-TO BE ENTERED AT DEPARTURE: 02/22/19 20:00 Medical Decision Making Initial bedside evaluation of the patient reveals tachycardia, sinus tachycardia at a rate of approximately 140. Patient mildly hypotensive and reports dizziness associated. Patient reports onset of symptoms while he was doing dishes became dizzy felt as if he was in a pass out needed to sit down put on a home monitor noted he was tachycardic at 147 and hypotensive therefore he came to the emergency room. Patient had a recent episode of SVT which required medication management 3 weeks ago in the emergency room with very similar symptoms. Given patient's symptomatic SVT and for my attending and ordered 6 mg of adenosine IV push in conjunction with IV fluid. After IV push patient's blood pressure improved and heart rate dropped 78, patient symptoms improved. Labs pending Patient's initial EKG reviewed with Dr. Biggs a heart rate of approximately 140 and sinus tachycardia without ST segment changes. 2111 -spoke with [facility] cardiology who does not feel additional medications need to be prescribed at this time however if another episode occurs consideration of discontinuing amlodipine and changing to do taught diltiazem or adding beta-sofy could be appropriate at that time. He recommends follow-up with [facility] cardiology for consideration for ablation. I did call the patient in discussed these recommendations with him. Patient will call Dr. ward tomorrow and follow-up with his primary care doctor in the next 2 days. This case was managed in conjunction with Dr. Biggs who did also evaluate the patient at the bedside and was present during adenosine push [facility] General Date/Time Provider Initiated Documentation: 02/22/19 16:08 . HPI Narrative: Patient presents for onset of dizziness and tachycardia. 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 Patient reports while washing dishes had onset of dizziness and feeling of syncope. Patient checked his finger digital monitor which revealed a heart rate of approximately 147 and mild hypotension. Patient reports at that time he came to the emergency room. Patient reports a similar episode approximately 3 weeks ago ultimately diagnosed with supraventricular tachycardia, failed vagal maneuvers and ultimately required adenosine to break his tachycardia which then returned to normal. Patient reports no symptoms in the last 3 weeks. Did follow with his primary care doctor as an outpatient. No medication changes at that time. Patient returns to the emergency room this evening had very similar symptoms. Patient does report feeling fatigued and weak as well as mildly lightheaded at the bedside. Patient denies active chest pain. Patient denies neck or back pain. Patient denies nausea or vomiting. No other concerns or complaints at this time. Patient denies recent illness. Patient is admitted daily caffeine. Related Data Home Medications Medication Instructions Recorded Confirmed amlodipine 10 mg PO DAILY 12/04/17 02/22/19 aspirin [Aspirin Low-Strength] 81 mg PO DAILY 12/04/17 02/22/19 atorvastatin [Lipitor] 20 mg PO DAILY 12/04/17 02/22/19 glucosam-chond va-[place]-cn ac 1 tab PO DAILY 12/04/17 02/22/19 multivitamin 1 cap PO DAILY 12/04/17 02/22/19 sildenafil [Viagra] 20 mg PO PRN PRN 12/04/17 02/22/19 acetaminophen [Tylenol] 650 mg PO Q6H PRN PRN tab 12/25/17 02/22/19 ibuprofen [Advil] 400 mg PO PRN PRN 12/09/18 02/22/19 Previous Rx's Medication Instructions Recorded acetaminophen [Tylenol] 650 mg PO Q6H PRN PRN tab 12/25/17 Allergies Allergy/AdvReac Type Severity Reaction Status Date / Time candesartan [From Atacand] Allergy Mild Other (See Verified 02/22/19 15:58 Comment) lisinopril AdvReac Mild Other (See Verified 02/22/19 15:58 Comment) General Stated Complaint: Dizzy/Sync CANDY: 3 Review of Systems Review of Systems Narrative: CONSTITUTIONAL: The patient denies fevers, chills. Dizziness. EYES: Denies vision changes, blurry vision, or eye pain. ENT: Denies hearing changes, tinnitus, vertigo, sore throat. CARDIAC: Denies chest pain, SOB. Fatigue RESPIRATORY: Denies cough, sputum. Denies difficulty breathing. GASTROINTESTINAL: Denies abdominal pain, changes in bowel, vomiting or nausea. GENITOURINARY: Denies dysuria, or frequency of urination. MUSCULOSKELETAL: Denies Joint pain, gait changes. NEUROLOGIC: Denies headaches, Denies focal weakness. Denies numbness. INTEGUMENT: Denies rashes. PSYCHIATRIC: Denies behavior changes. Denies anxiety or depression. PSYCHIATRY: Denies depression, agitation or anxiety ROS Unobtainable: All systems reviewed & are unremarkable except as noted in HPI and below PFSH Medical History Carotid stenosis (Acute) Hyperlipidemia (Acute) Hypertension (Chronic) Nephrolithiasis (Chronic) Surgical History S/P appendectomy (Resolved) S/P left colectomy (Resolved) Total knee replacement status (Resolved) Family History Mother Breast cancer Father Stroke Social History Smoking/Tobacco Use Status: Current every day Tobacco Type: cigarettes Alcohol Intake: current Alcohol Intake frequency: 0-2 drinks per day Alcohol type: beer Drug use: Never Substance use type: does not use Do you feel safe at home: Yes Do you feel safe in your relationship?: Yes Exam Narrative Exam Narrative: CONST: Healthy appearing patient, in no acute distress. Well hydrated. Alert and alert. HENMT: Head nomocephalic, normal to inspection. Atraumatic. Hearing grossly normal. External ear canal no erythema or swelling. TM normal bilaterally. Nose normal to inspection. No rhinnorhea. Normal facial exam. Oral mucosa normal. Tounge normal. Dentition normal. Normal posterior oropharynx. Uvula midline. EYES: General normal appearance. Alignment normal. Eyelids normal. Conjunctiva normal. Sclera normal. PERRL. NECK: Normal visual inspection. FROM. No lymphadenopathy. Trachea midline. No Midline tenderness. CHEST: Normal insepection of the chest. RESP: Normal respiratory effort. Speaking full sentences. No cough. No wheezing. No retractions. Clear to auscaltation. Breath sound equal and present bilaterally. CARDIO: No JVD. Normal PMI. Tachycardic. Regular Rhythm. Normal peripheral pulses. GI: Normal inspection of abdomen. No distension. Soft. Nontender. Bowel sounds present in all 4 quadrants. No rebound. No gaurding. MUSCULOSKELETAL: Normal Gait. FROM of all extremities. Distal neurovascularly intact. Sensation intact distally. SKIN: Normal. Dry. No rashes. NEURO: Alert and awake. Speech clear. PSYCH: Normal affect. Cooperative. Course Vital Signs Vital signs: Vital Signs Temperature 36.6 C 02/22/19 15:52 Pulse 138 H 02/22/19 15:52 Respiratory Rate 27 H 02/22/19 15:52 Blood Pressure 115/81 02/22/19 15:52 Pulse Oximetry 98 02/22/19 15:52 Temperature 36.6 C 02/22/19 15:52 Temperature Source Skin 02/22/19 15:52 Pulse 138 H 02/22/19 15:52 Respiratory Rate 20 02/22/19 16:21 Respiratory Effort Non-Labored 02/22/19 16:21 Respiratory Depth Normal 02/22/19 16:21 Respiratory Pattern Normal 02/22/19 16:21 Blood Pressure 115/81 02/22/19 15:52 Blood Pressure Position Sitting 02/22/19 15:52 Pulse Oximetry 98 02/22/19 15:52 Oxygen Delivery Method Room Air 02/22/19 15:52 Oxygen Flow Rate 0 02/22/19 15:52 Pain Level 0 02/22/19 15:52 Lab/Test Results Lab/Test Results: Laboratory Tests Range/Units 02/22/19 16:00 WBC (4.4-10.8) k/cumm 9.21 RBC (4.50-6.00) m/cumm 5.11 Hgb (13.5-17.5) g/dL 16.4 Hct (40.0-50.0) % 46.9 MCV (80-95) fL 91.8 MCH (27.0-33.0) pg 32.1 MCHC (32.0-36.0) g/dL 35.0 RDW (11.8-14.1) % 15.6 H Plt Count (130-400) x1000/uL 275 MPV (8.0-11.0) fL 10.3 Immature Gran % 0.2 Neutrophils % 56.1 Lymphocytes % 31.5 Monocytes % 7.9 Eosinophils % 4.0 Basophils % 0.3 Absolute Neutrophils (1.2-6.7) k/cumm 5.16 Absolute Lymphocytes (1.2-3.4) k/cumm 2.90 Absolute Monocytes (0.11-0.7) k/cumm 0.73 H Absolute Eosinophils (0.0-0.7) k/cumm 0.37 Absolute Basophils (0.0-0.2) k/cumm 0.03 Critical Care Time Critical Care Time Critical Care Time: Yes Total Critical Care Time: 15 Attestation: Patient with symptomatic tachycardia sprains and dizziness and mild hypotension. Patient ultimately received IV fluid and adenosine 6 mg within 30 to 45 seconds patient's heart rate had improved significantly from approximately 1 30-1 42 approximately 80. Patient symptoms fully resolved.
[2019-02-22 16:42] LABS: ALT 19 U/L (16-63); AST 14 U/L (15-37); Albumin 3.7 g/dL (3.4-5.0); Alkaline Phosphatase 108 U/L (46-116); Anion Gap 12.2 mmol/L (3-11); BUN 11 mg/dL (7-18); Bilirubin, Total 0.5 mg/dL (0.2-1.0); CO2 21.8 mmol/L (21.0-32.0); CREATININE 0.89 mg/dL (0.70-1.30); Calcium 8.6 mg/dL (8.5-10.1); Chloride 105 mmol/L (98-107); Glucose 177 mg/dL (70-100); Magnesium 1.8 mg/dL (1.8-2.4); Potassium 3.9 mmol/L (3.5-5.1); Sodium 139 mmol/L (136-145); Total Protein 7.2 g/dL (6.4-8.2)
[2019-02-22 16:47] LABS: Troponin I < 0.05 ng/mL (0.00-0.06)
[2019-02-22 19:58] VITALS: BP 113/51; PULSE 79; RESP 18; TEMP 37.2; O2SAT 98
== END 2019-02-22 20:00 | disposition home or self-care (01) ==
PROVIDERS: Emergency Provider Physician Assistant; PCP Specialist/Technologist Athletic Trainer
DX: I47.1 Supraventricular tachycardia (principal); I65.29 Occlusion and stenosis of unspecified carotid artery; I10 Essential (primary) hypertension
CPT/HCPCS: 36415; 80053; 93005; 96374; 99284; 83735; 84484; 85025; 93010; J0153

== ENCOUNTER 2019-02-28 15:05 | Emergency (ER) | payer MEDICARE, BC, SELFPAY ==
[2019-02-28] VITALS (13 sets, daily range): BP systolic 97–118; BP diastolic 63–70; PULSE 75–85; RESP 13–20; TEMP 36.4; O2SAT 91–99
--- NOTE | 2019-02-28 15:19 | W.ED.GENAD ---
Discharge Plan Disposition Patient Disposition: HOME Condition: Stable Discharge Details Chief Complaint: Palpitatns Clinical Impression: SVT (supraventricular tachycardia) Primary Care Provider: Castillo Kearns ED Provider: Raf Solis Home Meds and New Rx's Prescriptions: New metoprolol tartrate 25 mg tablet 25 mg PO BID 30 Days Qty: 60 RF: 0 Continued atorvastatin [Lipitor] 20 MG tablet 20 mg PO DAILY RF: 0 amlodipine 10 MG tablet 10 mg PO DAILY RF: 0 sildenafil [Viagra] 25 MG tablet 20 mg PO PRN PRNRF: 0 aspirin [Aspirin Low-Strength] 81 MG tablet,chewable 81 mg PO DAILY RF: 0 multivitamin 1 EACH capsule 1 cap PO DAILY RF: 0 glucosam-chond mx-wukful-ua ac 1 EACH capsule 1 tab PO DAILY RF: 0 acetaminophen [Tylenol] 325 MG tablet 650 mg PO Q6H PRN PRNRF: 0 ibuprofen [Advil] 200 mg Tablet 400 mg PO PRN PRNRF: 0 Discharge Instructions Instructions: Supraventricular Tachycardia (ED) Additional Instructions: follow up as scheduled with your director agricultural services if you have the symptoms return and can't make them go away with vagal maneuvers return to the emergency department. Also return if you feel more ill or have severe chest or abdominal pain Medical Decision Making 73 yo male with hx of svt, htn, hld comes in after feeling dizzy and his heart rate was in the 140-160 range. Denies chest pressure or shortness of breath and felt similar to prior episdoes of svt. On arrival he is noted to be in svt and nursing started to place an IV which converted him to sinus rhythm and he is now asymptomatic. Given lack of chest pain/pressure doubt acs and do not feel he reuqires workup for this. No hypoxia, evidence of dvt on exam and no pleuritic chest pain s odoubt PE at this time. Will eval for electrolyte abnormalities and monitor. pt's labs unremarkable and remains asymptomatic and in sinus rhythm. Will d/c on metoprolol given how many times he has had svt and he has a cardiology appt later this month, return precautions given Differential Diagnosis Differential Diagnosis: svt, electrolyte abnotmality Medical Records Medical records reviewed: Yes I reviewed the patient's medical records. Lab Data Lab results reviewed: Yes I reviewed the patient's lab results. ECG Data Attestation: I personally reviewed and interpreted this ECG (s) as follows: Prior ECG tracings: available for review Interpretation: iniital ecg shows svt with rates of 140, qtc [address] t wave ischemic changes second ecg shows sinus rhythm, rate of 82, pr 180, no acute st t wave ischemic findings HPI General Mode of arrival: ambulatory. Date/Time Provider Initiated Documentation: 02/28/19 15:06. Limitations to Documentation: no limitations. Information obtained by: patient. History of Present Illness 73 year old M presents to the emergency department with the chief complaint of dizziness, described as moderate, Patient reports no radiation. Patient started experiencing this hour(s) (1) and it has been now resolved. No relieving factors improve symptom(s), No exacerbating factors reported . Patient notes no other symptoms.. Related Data Home Medications Medication Instructions Recorded Confirmed amlodipine 10 mg PO DAILY 12/04/17 02/28/19 aspirin [Aspirin Low-Strength] 81 mg PO DAILY 12/04/17 02/28/19 atorvastatin [Lipitor] 20 mg PO DAILY 12/04/17 02/28/19 glucosam-chond wi-husyrn-ch ac 1 tab PO DAILY 12/04/17 02/28/19 multivitamin 1 cap PO DAILY 12/04/17 02/28/19 sildenafil [Viagra] 20 mg PO PRN PRN 12/04/17 02/28/19 acetaminophen [Tylenol] 650 mg PO Q6H PRN PRN tab 12/25/17 02/28/19 ibuprofen [Advil] 400 mg PO PRN PRN 12/09/18 02/28/19 metoprolol tartrate 25 mg PO BID 30 Days #60 tab 02/28/19 Previous Rx's Medication Instructions Recorded acetaminophen [Tylenol] 650 mg PO Q6H PRN PRN tab 12/25/17 metoprolol tartrate 25 mg PO BID 30 Days #60 tab 02/28/19 Allergies Allergy/AdvReac Type Severity Reaction Status Date / Time candesartan [From Atacand] Allergy Mild Other (See Verified 02/28/19 15:16 Comment) lisinopril AdvReac Mild Other (See Verified 02/28/19 15:16 Comment) General Stated Complaint: Palpitatns CANDY: 2 Review of Systems Review of Systems ROS Unobtainable: All systems reviewed & are unremarkable except as noted in HPI and below Constitutional Constitutional: Denies chills, Denies fever(s) and Denies weakness ENT Ears, Nose, Mouth, and Throat: Denies change in voice Cardiovascular Cardiovascular: Denies dyspnea Respiratory Respiratory: Denies cough and Denies dyspnea Gastrointestinal Gastrointestinal: Denies abdominal pain, Denies nausea and Denies vomiting Musculoskeletal Musculoskeletal: Denies joint swelling Neurologic Neurologic: Denies weakness Endocrine Endocrine: Denies heat intolerance [facility] Social History Smoking/Tobacco Use Status: Current every day Tobacco Type: cigarettes Alcohol Intake: current Alcohol Intake frequency: 0-2 drinks per day Alcohol type: beer Drug use: Never Substance use type: does not use Do you feel safe at home: Yes Do you feel safe in your relationship?: Yes Exam Const General: no acute distress Orientation: alert HENMT Head: normal to inspection Ears: external ears normal General nose exam: external nose normal Mouth: moist mucous membranes Eyes General: appearance normal, both eyes and all related structures Neck Neck: normal visual inspection Resp Effort & Inspection: normal respiratory effort and able to speak in complete sentences Cardio Rate: regular rate Skin General skin exam: no rashes or lesions noted Neuro General: alert and oriented x3 Extrem General: normal to inspection Psych Mental Status: mental status grossly normal Course Vital Signs Vital signs: Vital Signs Temperature 36.4 C L 02/28/19 15:13 Pulse 85 02/28/19 15:13 Respiratory Rate 16 02/28/19 15:13 Blood Pressure 99/69 L 02/28/19 15:13 Pulse Oximetry 97 02/28/19 15:13 Temperature 36.4 C L 02/28/19 15:13 Pulse 85 02/28/19 15:13 Respiratory Rate 16 02/28/19 15:13 Respiratory Effort Non-Labored 02/28/19 15:13 Blood Pressure 99/69 L 02/28/19 15:13 Blood Pressure Position Sitting 02/28/19 15:13 Pulse Oximetry 97 02/28/19 15:13 Oxygen Delivery Method Room Air 02/28/19 15:13 Oxygen Flow Rate 0 02/28/19 15:13 Pain Level 0 02/28/19 15:13
[2019-02-28 15:46] LABS: ALT 19 U/L (16-63); AST 17 U/L (15-37); Abs Immature Grans 0.02 k/cumm (0.0-0.09); Absolute Basophil Count 0.02 k/cumm (0.0-0.2); Absolute Eosinophil Count 0.29 k/cumm (0.0-0.7); Absolute Monocyte Count 0.87 k/cumm (0.11-0.7); Albumin 3.9 g/dL (3.4-5.0); Alkaline Phosphatase 98 U/L (46-116); Anion Gap 14.6 mmol/L (3-11); BUN 20 mg/dL (7-18); Basophils % 0.2; Bilirubin, Total 0.4 mg/dL (0.2-1.0); CO2 21.4 mmol/L (21.0-32.0); CREATININE 0.95 mg/dL (0.70-1.30); Chloride 103 mmol/L (98-107); Eosinophils % 2.4; Glucose 93 mg/dL (70-100); HCT 44.6 % (40.0-50.0); HGB 15.4 g/dL (13.5-17.5); Immature Grans % 0.2; Lymphocytes % 19.4; Magnesium 1.8 mg/dL (1.8-2.4); Mean Corp. HGB Concentration 34.5 g/dL (32.0-36.0); Mean Corpuscular Hemoglobin 31.8 pg (27.0-33.0); Mean Corpuscular Volume 92.1 fL (80-95); Mean Platelet Volume 10.5 fL (8.0-11.0); Monocytes % 7.3; Neutrophils % 70.5; Platelet Count 259 x1000/uL (130-400); Potassium 3.9 mmol/L (3.5-5.1); RBC 4.84 m/cumm (4.50-6.00); RBC Distribution Width 15.3 % (11.8-14.1); Sodium 139 mmol/L (136-145); Total Protein 7.5 g/dL (6.4-8.2); White Blood Cell Count 11.88 k/cumm (4.4-10.8)
[2019-02-28 15:53] LABS: Absolute Neutrophil Count 8.38 k/cumm (1.2-6.7)
== END 2019-02-28 16:19 | disposition home or self-care (01) ==
PROVIDERS: Emergency Provider Emergency Medicine; PCP Specialist/Technologist Athletic Trainer
DX: I47.1 Supraventricular tachycardia (principal); I10 Essential (primary) hypertension
CPT/HCPCS: 36415; 80053; 93005; 99284; 83735; 85025; 93010

== ENCOUNTER 2019-05-20 02:15 | Outpatient (CLI) | payer MEDICARE, BC, SELFPAY ==
--- NOTE | 2019-05-20 08:54 | DI.US_ITS ---
EXAM: US SOFT TISS EXTREMITY/GROIN CLINICAL HISTORY: Monitor left groin lymphadenopathy, lymphadenopathy inguinal, R59.0,LOCALIZED ENLA RGED LYMPH NODES TECHNIQUE: Ultrasound performed using standard protocol. COMPARISON: US soft tiss extremity/groin from 02/01/2019 FINDINGS: Ultrasound examination of the left inguinal region was performed to follow a previously noted 39 mil limeter in diameter inguinal lymph node. On today's examination, this measures about 45 x 7 x 4 mill imeters. No other specific abnormality identified. IMPRESSION: Left inguinal lymph node has increased in size from 39 x 23 by 4 millimeters to 45 x 7 x 4 millimeter s.
== END 2019-05-20 02:35 ==
PROVIDERS: PCP Specialist/Technologist Athletic Trainer; Visit Provider Surgery
DX: R59.0 Localized enlarged lymph nodes (principal)
CPT/HCPCS: 76882

== ENCOUNTER → 2019-06-06 12:54 | Outpatient (BNVA) | payer MEDICARE, BC, SELFPAY | PROVIDERS: PCP Specialist/Technologist Athletic Trainer; Referring Provider Specialist/Technologist Athletic Trainer; Visit Provider Surgery | DX: R59.0 Localized enlarged lymph nodes (principal) | CPT/HCPCS: 99214 ==

== ENCOUNTER 2019-06-14 06:57 | Day surgery (SDC) | payer MEDICARE, BC, SELFPAY ==
[2019-06-14 07:27] VITALS: BP 119/71; PULSE 54; RESP 20; TEMP 36.1; O2SAT 94
[2019-06-14] MEDS: Lactated Ringers 1,000 ML 80 ML IV (07:50)
--- NOTE | 2019-06-14 07:56 | NUR.NOTE ---
Nursing Note: 0750: Pt. shaved L groin surgical area when changing using razor provided by [facility]. Pt. reports bleeding and stinging after using razor. Nursing visualized area, reddened spots/lines noted with blood from some areas. Dr. Nina marked pt. and visualized area. Cool compress provided for stinging. 0800: Pt. states stinging is resolved. Nursing visualized area, still reddened spots/lines, bleeding appears to have ceased. Cool compress in place.
[2019-06-14] MEDS: ceFAZolin 2 GM/50 ML BAG IVPB (08:11)
[2019-06-14] MEDS: Lidocaine 2% Multi-Dose 50 ML VIAL (08:30)
--- NOTE | 2019-06-14 08:45 | LYM_PTH ---
PATIENT: Murphy Lozoya LOC: [facility] U#:[id number] AGE/SX: 73/M ROOM: RE06/14/[address]: Loren Nina MD : [id number] BED: DIS: 06/14/2019 SPEC #: [id number] RECD: 06/14/19 12:39 STATUS: LEONCIO REQ #: [id number] MICHAEL: 06/14/19 08:[address]: Loren Nina DEPT: Surgical Specimen RECD BY: Mary Nye ENTERED: 06/14/19 12:41 SP TYPE: LYM OTHR DR: Castillo Kearns Tissues: 1 - LYMPHOMA WORK-UP 2 - FLOW CYTOMETRY NODE/TISSUE Procedures: GROSS AND MICRO LEVEL 4 FLOW CYTOMETRY LYMPHOMA PNL Comments: [id number] (FLOW CYTOMETRY - [id number]) (4 TOUCH PREP SLIDES INCLUDED)
--- NOTE | 2019-06-14 08:50 | W.PM.DSUDISC ---
Discharge Plan Disposition Patient Disposition: HOME Condition: Good Discharge Details Reason For Visit: Excision left groin lymph node Attending Provider: Loren Nina Primary Care Provider: Castillo Kearns Home Meds and New Rx's Prescriptions: Continued metoprolol succinate 25 mg tablet extended release 24 hr 25 mg PO DAILY RF: 0 atorvastatin [Lipitor] 20 MG tablet 20 mg PO DAILY RF: 0 amlodipine 10 MG tablet 10 mg PO DAILY RF: 0 sildenafil [Viagra] 25 MG tablet 20 mg PO PRN PRNRF: 0 aspirin [Aspirin Low-Strength] 81 MG tablet,chewable 81 mg PO DAILY RF: 0 multivitamin 1 EACH capsule 1 cap PO DAILY RF: 0 glucosam-chond ce-wabvkr-tw ac 1 EACH capsule 1 tab PO DAILY RF: 0 acetaminophen [Tylenol] 325 MG tablet 650 mg PO Q6H PRN PRNRF: 0 ibuprofen [Advil] 200 mg Tablet 400 mg PO PRN PRNRF: 0 Discharge Instructions Additional Instructions: The top bandage can be removed tomorrow. The steri strips will usually stick for about a week. When the edges start to curl up, they can be removed. It is okay to shower tomorrow, the water can run over the steri strips Do not swim or soak in a tub for two weeks Call for any concerns including fever, increased pain, vomiting, incision redness/drainage/significant swelling. It is normal to have a small lump under the incision which will take 4-6 weeks to disappear. Keep activity/lifting light for two weeks. Walking and stairs are fine. Do not drive if limited by pain. May use Tylenol alternating with ibuprofen for pain control. Ice is also an option. The maximum dose for Tylenol is 4000 mg/day. May use ibuprofen 800 mg every 8 hours as needed. If concerned about constipation, you may use a stool softener or milk of magnesia. My office will contact you with biopsy results. If the incision is healing well, no follow up appointment is needed. If you have any concerns, please call for a postop visit. Activity:: Light for two weeks Remove Dressings/Wound Care:: 24 hours Shower/Bathe:: 24 hours Diet:: As Tolerated Discharge Orders Discharge Orders: Discharge Order (Routine); Ordered 06/14/19 Ordered By: Loren Nina DS: Diagnosis Discharge Diagnosis (1) Lymphadenopathy, inguinal: Status: Acute
[2019-06-14 09:27] VITALS: BP 125/71; PULSE 53; RESP 18; TEMP 36.3; O2SAT 95
--- NOTE | 2019-06-16 06:35 | ROE_ITS ---
REPORT OF OPERATIVE PROCEDURE DATE OF PROCEDURE June 14, 2019 PREOPERATIVE DIAGNOSIS Left groin lymphadenopathy. POSTOPERATIVE DIAGNOSIS Left groin lymphadenopathy. PROCEDURE Excision left groin lymph node. SURGEON Loren Nina M.D. INSURANCE FOLLOW UP REP Jaclyn Rucker ANESTHESIA Local and sedation. INDICATIONS This is a 73-year-old man with who was found to have left groin lymphadenopathy last summer when he p resented with cellulitis in the region. This was initially thought to be reactive, so the node has be en followed with ultrasound every three months. It has increased in size despite no further inflammat ion, so it was thought prudent to excise the node for Pathology given that it may not be purely a aline ctive lymph node. PROCEDURE The patient was placed supine on the operating table and his left groin was prepped and draped steril rufina. The node was palpable below the inguinal ligament and medial to the vascular structures. The sk in overlying the lymph node was infiltrated with local anesthetic and angled incision made. Subcutane ous tissue was divided with cautery down to the lymphatic structures. There was a soft, but definitel y enlarged lymph node measuring about 4 cm. This was excised with cautery. Any vascular or lymphatic structures visualized going to the node were clipped with small clips. This was excised completely. T his was sent fresh to Pathology for routine H and E, as well as lymphoma evaluation. Palpation of the groin revealed no other concerning lymph nodes. There was good hemostasis. The skin was closed with a running #4-0 Monocryl subcuticular stitch. He tolerated the procedure well and [facility]
== END 2019-06-14 09:50 | disposition home or self-care (01) ==
PROVIDERS: PCP Specialist/Technologist Athletic Trainer; Visit Provider Surgery
PROC: (CPT 38500; principal; 2019-06-14 08:15)
DX: R59.0 Localized enlarged lymph nodes (principal)
CPT/HCPCS: 38531; 88305; 88184; 88185; J0690; J1885; J2405; J2704

== ENCOUNTER → 2019-07-18 11:26 | Outpatient (BNVA) | payer MEDICARE, BC, SELFPAY | PROVIDERS: PCP Specialist/Technologist Athletic Trainer; Referring Provider Specialist/Technologist Athletic Trainer; Visit Provider Surgery | DX: L76.34 Postprocedural seroma of skin and subcutaneous tissue following other procedure (principal) ==

== ENCOUNTER → 2019-08-01 09:25 | Outpatient (BNVA) | payer MEDICARE, BC, SELFPAY | PROVIDERS: PCP Specialist/Technologist Athletic Trainer; Referring Provider Specialist/Technologist Athletic Trainer; Visit Provider Surgery | DX: L76.34 Postprocedural seroma of skin and subcutaneous tissue following other procedure (principal) ==

== ENCOUNTER → 2019-08-18 09:20 | Outpatient (BNVA) | payer MEDICARE, BC, SELFPAY | PROVIDERS: PCP Specialist/Technologist Athletic Trainer; Referring Provider Specialist/Technologist Athletic Trainer; Visit Provider Surgery | DX: L76.34 Postprocedural seroma of skin and subcutaneous tissue following other procedure (principal); I10 Essential (primary) hypertension | CPT/HCPCS: 10140 ==

== ENCOUNTER → 2019-10-10 14:54 | Outpatient (BNVA) | payer MEDICARE, BC, SELFPAY | PROVIDERS: PCP Specialist/Technologist Athletic Trainer; Referring Provider Specialist/Technologist Athletic Trainer; Visit Provider Surgery | DX: L76.34 Postprocedural seroma of skin and subcutaneous tissue following other procedure (principal); T88.8XXD Other specified complications of surgical and medical care, not elsewhere classified, subsequent encounter | CPT/HCPCS: 10160 ==

== ENCOUNTER → 2019-10-31 10:57 | Outpatient (BNVA) | payer MEDICARE, BC, SELFPAY | PROVIDERS: PCP Specialist/Technologist Athletic Trainer; Referring Provider Specialist/Technologist Athletic Trainer; Visit Provider Surgery | DX: L76.34 Postprocedural seroma of skin and subcutaneous tissue following other procedure (principal); T88.8XXD Other specified complications of surgical and medical care, not elsewhere classified, subsequent encounter; I10 Essential (primary) hypertension | CPT/HCPCS: 10160 ==

== ENCOUNTER 2019-11-01 02:30 | Outpatient (CLI) | payer MEDICARE, BC, SELFPAY ==
--- NOTE | 2019-11-01 | DI.US_ITS ---
EXAM: US LOWER EXTREMITY VENOUS LT CLINICAL HISTORY: LOWER EXTREMITY EDEMA LT, R60.0, LT FOOT TO GROIN TECHNIQUE: Ultrasound performed using standard protocol. US US SOFT TISS EXTREMITY/GROIN from 05/20/2019 FINDINGS: Duplex evaluation of the deep venous system of the left lower extremity was performed according to th e usual protocol. There is fluid echogenicity complex predominantly fluid echogenicity mass mass wit h internal septations in the leftinguinal region which contains some internal debris. This measures about 9.5 x 8.5 x 4.6 cm diameter. This may represent hematoma, seroma, pathologic lymph node not ex cluded. There is no evidence of deep venous thrombosis of the left lower extremity. IMPRESSION: No evidence of DVT. Large avascular complex mass left inguinal region, the differential diagnosis i ncludes hematoma, seroma, abscess, or pathologic lymph node. Additional evaluation with CT may be co nsidered if clinically appropriate. DATA REPOSITORY:
== END 2019-11-01 02:50 ==
PROVIDERS: PCP Nurse Practitioner Family; Visit Provider Nurse Practitioner Family
DX: R60.0 Localized edema (principal); R19.09 Other intra-abdominal and pelvic swelling, mass and lump; R59.0 Localized enlarged lymph nodes
CPT/HCPCS: 93971

== ENCOUNTER 2019-11-19 18:44 | Emergency (ER) | payer MEDICARE, BC, SELFPAY ==
[2019-11-19 18:55] VITALS: BP 123/68; PULSE 69; RESP 16; TEMP 37; O2SAT 92
--- NOTE | 2019-11-19 19:15 | DI.RAD_ITS ---
EXAM: XR HAND RT COMPLETE CLINICAL HISTORY: injury, laceration 3rd digit, intoxicated. TECHNIQUE: 2D digital imaging was performed. COMPARISON: No exams were available for comparison FINDINGS: BONES: No acute fracture is present. No bony destructive lesion is seen. JOINTS: No dislocation present. 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 The findings are most marked at the 1st carpometacarpal joint. SOFT TISSUE: There is a laceration at the radial aspect of the middle finger. No radiopaque foreign bodies are seen. IMPRESSION: 1. No acute fracture or dislocation. 2. Soft tissue laceration of the 3rd finger. No radiopaque foreign body. DATA REPOSITORY: RADIATION DOSE DELIVERED:
--- NOTE | 2019-11-19 19:15 | DI.CT_ITS ---
EXAM: CT HEAD CERVICAL SPINE WO CLINICAL HISTORY: fall, posterior head trauma, intoxicated. TECHNIQUE: Imaging Protocol: Axial computed tomography images with coronal and sagittal reformatted images were created and reviewed COMPARISON: No exams were available for comparison FINDINGS: CT Head: Ventricles and Extra axial spaces: Normal in size and morphology for the patient's age. Hemorrhage: None. Cerebral parenchyma: There are areas of decreased attenuation in the white matter consistent with sma ll vessel ischemic disease. Midline shift: None. Brainstem/Cerebellum: Normal. Calvarium: Normal. Visualized Paranasal sinuses/Mastoids: Mucosal thickening is seen in the ethmoid air cells and maxill amy sinuses. No fluid levels are present. Soft Tissues: Unremarkable. CT Cervical Spine: Bones: No acute fracture or subluxation. Moderate spondylosis is present throughout the cervical spin e. Soft Tissues: Unremarkable. Lung Apices: Clear. IMPRESSION: 1. No acute intracranial process. 2. No acute fracture or subluxation in the cervical spine. RADIATION DOSE DELIVERED: Total DLP DATA REPOSITORY: All CT scans at this facility are submitted to the National Radiology Data Registry (NRDR) Dose Index Registry (DIR) with the [employer] (A[employer]). RADIATION OPTIMIZATION: All CT scans at this facility use at least one of these dose optimization te chniques: automated exposure control; mA and/or kV adjustment per patient size (includes targeted exa ms where dose is matched to clinical indication); or iterative reconstruction.
--- NOTE | 2019-11-19 19:24 | W.ED.GENAD ---
Discharge Plan Disposition Patient Disposition: HOME Condition: Stable Discharge Details Chief Complaint: HeadInjury Clinical Impression: Laceration of right middle finger, Abrasion of scalp, Alcohol intoxication Primary Care Provider: Jennifer Huang ED Provider: Isaac Walker Home Meds and New Rx's Prescriptions: Continued metoprolol succinate 25 mg tablet extended release 24 hr 25 mg PO DAILY RF: 0 atorvastatin [Lipitor] 20 MG tablet 20 mg PO DAILY RF: 0 amlodipine 10 MG tablet 10 mg PO DAILY RF: 0 sildenafil [Viagra] 25 MG tablet 20 mg PO PRN PRNRF: 0 aspirin [Aspirin Low-Strength] 81 MG tablet,chewable 81 mg PO DAILY RF: 0 multivitamin 1 EACH capsule 1 cap PO DAILY RF: 0 glucosam-chond nu-rnraot-eu ac 1 EACH capsule 1 tab PO DAILY RF: 0 acetaminophen [Tylenol] 325 MG tablet 650 mg PO Q6H PRN PRNRF: 0 ibuprofen [Advil] 200 mg Tablet 400 mg PO PRN PRNRF: 0 Discharge Instructions Instructions: Head Injury (ED), Alcohol Intoxication (ED), Finger Laceration (ED) Additional Instructions: Sutures were placed today to right hand. Please keep dressing intact for the next 2 days. Change dressing daily thereafter. Be sure to monitor for signs of infection including increased redness, swelling, discharge or pain. Reapply sterile dressing daily. Sutures should be removed in 12 days. Please contact your primary care physician to arrange follow-up. Return to the ER for any worsening or new concerning symptoms. Referrals: Jennifer Huang [Primary Care Provider] - Discharge Data Discharge Date/Time-TO BE ENTERED AT DEPARTURE: 11/19/19 21:35 Medical Decision Making 730p: 74-year-old male here with altered mental status, presumed alcohol intoxication, mechanical fall with laceration to his right third digit and head trauma. Considered acute life-threatening intracranial traumatic hemorrhage and C-spine fracture given unreliable history and exam. Digital block performed right third digit without complication. 907??CT of the head was interpreted by radiology: IMPRESSION: Senescent changes noted. No acute intracranial abnormality. CT of the cervical spine interpreted by radiology: IMPRESSION: No evidence for acute posttraumatic abnormality. Hand x-ray was reviewed by radiology: No foreign body no fracture. Wound was irrigated with copious sterile saline and closed primarily. Sterile dressing applied by nursing. Usual customary discharge instructions were reviewed with patient. HPI General Mode of arrival: ambulatory. Date/Time Provider Initiated Documentation: 11/19/19 19:21. Limitations to Documentation: no limitations. Information obtained by: patient and family. HPI Narrative: 74-year-old male presents with chief complaint of finger laceration. Patient was watering his garden and tripped and fell. He has consumed a few alcoholic beverages tonight. He did hit his posterior head and sustained abrasion to his scalp. He denies loss of consciousness. No headache. No neck pain. No chest pain or abdominal pain. No hip pain. He is able to move his fingers without any difficulty. Finger laceration is moderate localized to palmar surface third digit. Patient is intoxicated which limits history and review of systems. Related Data Home Medications Medication Instructions Recorded Confirmed amlodipine 10 mg PO DAILY 12/04/17 11/19/19 aspirin [Aspirin Low-Strength] 81 mg PO DAILY 12/04/17 11/19/19 atorvastatin [Lipitor] 20 mg PO DAILY 12/04/17 11/19/19 glucosam-chond lj-gqzhpu-to ac 1 tab PO DAILY 12/04/17 11/19/19 multivitamin 1 cap PO DAILY 12/04/17 11/19/19 sildenafil [Viagra] 20 mg PO PRN PRN 12/04/17 11/19/19 acetaminophen [Tylenol] 650 mg PO Q6H PRN PRN tab 12/25/17 11/19/19 ibuprofen [Advil] 400 mg PO PRN PRN 12/09/18 11/19/19 metoprolol succinate 25 mg 25 mg PO DAILY 06/06/19 11/19/19 tablet,extended release 24 hr Previous Rx's Medication Instructions Recorded acetaminophen [Tylenol] 650 mg PO Q6H PRN PRN tab 12/25/17 Allergies Allergy/AdvReac Type Severity Reaction Status Date / Time candesartan [From Atacand] Allergy Mild SOB/Rash Verified 11/19/19 19:00 lisinopril Allergy Mild Numbness & Verified 11/19/19 19:00 tongue swelling General Stated Complaint: HeadInjury CADNY: 3 Review of Systems Unobtainable due to mental status [facility] Medical History Carotid stenosis (Acute) FOLLOWS UP WITH PCP History of deviated nasal septum (Acute) Hyperlipidemia (Acute) Hypertension (Chronic) Nephrolithiasis (Chronic) PT. DENIES THIS SVT (supraventricular tachycardia) (Chronic) BEING FOLLOWED BY [employer] [facility], DR. 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 Family History Mother Breast cancer Father Stroke Social History Smoking/Tobacco Use Status: Former Tobacco Use Quit Date: 06/04/19 Alcohol Intake: current Alcohol Intake frequency: 3 or more drinks per day Alcohol type: beer Drug use: Never Substance use type: does not use Details: alcohol: t-2, one beer Current gender identity: male Do you feel safe at home: Yes Do you feel safe in your relationship?: Yes Exam HENMT Head: normocephalic, no Mehta's sign, no raccoon eyes and scalp lesion (Abrasion occipital parietal scalp with no active bleeding) Ears: TM's normal bilaterally General nose exam: external nose normal Mouth: moist mucous membranes Eyes EOM: EOM intact bilaterally Neck Neck: no midline deformity and nontender Resp Auscultation: clear to auscultation bilaterally, no rales, no rhonchi and no wheezes Cardio Jugular venous pressure: no JVD Rate: regular rate and not tachycardic Rhythm: regular rhythm GI Palpation: soft, not firm, no guarding, no masses, not rigid and nontender Skin Trauma: laceration (Right third digit with curved laceration, full-thickness flap, no bleeding) Neuro General: patient alert, patient awake and tone normal Extrem General: no edema Right upper extremity: hand Details: neuromotor exam normal, tendon exam normal, normal ROM of fingers, laceration (Right third digit) and other (Sensory exam limited, unable to perceive two-point discrimination on the other hand secondary to intoxication) Psych Appearance: grossly normal Course Vital Signs Vital signs: Vital Signs Temperature 37.0 C 06/20/20 18:55 Pulse 69 11/19/19 18:55 Respiratory Rate 16 11/19/19 18:55 Blood Pressure 123/68 11/19/19 18:55 Pulse Oximetry 92 L 11/19/19 18:55 Temperature 37.0 C 11/19/19 18:55 Pulse 69 11/19/19 18:55 Respiratory Rate 16 11/19/19 18:55 Respiratory Effort Non-Labored 11/19/19 18:59 Blood Pressure 123/68 11/19/19 18:55 Blood Pressure Position Supine 11/19/19 18:55 Pulse Oximetry 92 L 11/19/19 18:55 Oxygen Delivery Method Room Air 11/19/19 18:55 Oxygen Flow Rate 0 11/19/19 18:55 Pain Level 5 11/19/19 18:55 Procedures Laceration Laceration 1: Site: hand Side (If applicable): right Size (cm): 2 Description: flap Depth: simple, single layer Pre-repair: wound explored, irrigated extensively and deep structures intact Skin layer closed with: nylon Size (cm): 5-0 Number of sutures: 6 Technique: simple, interrupted Nerve Block Nerve Block 1: Time out performed: Yes Local Anesthetic: Lidocaine 1% Amount of anesthesia used (mL): 3 Side: right Nerve Blocks: digital Procedure Successful: Yes Patient Tolerated Procedure: well Complications: pain with procedure
--- NOTE | 2019-11-19 19:49 | DI.VRAD_ITS ---
PROCEDURE INFORMATION: Exam: XR Right Hand Exam date and time: 11/19/2019 7:37 PM Age: 74 years old Clinical indication: Injury or trauma; Initial encounter; Hand; Patient HX: Right 3rd digit laceration TECHNIQUE: Imaging protocol: XR Right hand. Views: 3 or more views. COMPARISON: US SOFT TISS EXTREMITY/GROIN 05/20/2019 8:54 AM FINDINGS: Bones/joints: No fracture or dislocation. Osteoarthritis features of the interphalangeal joints and the thumb base.. Soft tissues: No soft tissue foreign body. Laceration injury seen in the mid aspect of the right 3rd finger along the anterior and radial aspect.. IMPRESSION: 1. No soft tissue foreign body. 2. No fracture or dislocation. 3. Osteoarthritis. Dictated and Authenticated by: Mario Alberto Jiménez MD. Ordering:NICOLETTE Gray MD
--- NOTE | 2019-11-19 19:50 | DI.VRAD_ITS ---
PROCEDURE INFORMATION: Exam: CT Head Without Contrast Exam date and time: 11/19/2019 7:22 PM Age: 74 years old Clinical indication: Injury or trauma; Initial encounter; Blunt trauma (contusions or hematomas); Patient HX: Fall, posterior head trauma, intoxicated TECHNIQUE: Imaging protocol: Computed tomography of the head without contrast. COMPARISON: No relevant prior studies available. FINDINGS: Brain: Cerebral volume loss noted. Scattered areas of decreased attenuation in the deep periventricular white matter consistent with small vessel ischemic change. No evidence for acute intracranial abnormality. Ventricles: Normal. No ventriculomegaly. Bones/joints: Unremarkable. No acute fracture. Sinuses: Moderate mucoperiosteal thickening in the ethmoid air cells and left frontoethmoid recess. Mild mucoperiosteal thickening inferior maxillary sinuses. Mastoid air cells: Visualized mastoid air cells are well aerated. Soft tissues: Unremarkable. IMPRESSION: Senescent changes noted. No acute intracranial abnormality. PROCEDURE INFORMATION: Exam: CT Cervical Spine Without Contrast Exam date and time: 11/19/2019 7:22 PM Age: 74 years old Clinical indication: Injury or trauma; Initial encounter; Blunt trauma (contusions or hematomas); Patient HX: Fall, posterior head trauma, intoxicated TECHNIQUE: Imaging protocol: Computed tomography images of the cervical spine without contrast. COMPARISON: No relevant prior studies available. FINDINGS: Vertebrae: There is moderate cervical spondylosis and uncovertebral degenerative change without significant stenosis. Vertebral body height is well preserved. There is no evidence for fracture or dislocation. C2-C3: No significant disc protrusion. No severe spinal canal stenosis. No significant neural foraminal narrowing. C3-C4: No significant disc protrusion. No severe spinal canal stenosis. No significant neural foraminal narrowing. C4-C5: No significant disc protrusion. No severe spinal canal stenosis. No significant neural foraminal narrowing. C5-C6: No significant disc protrusion. No severe spinal canal stenosis. No significant neural foraminal narrowing. C6-C7: No significant disc protrusion. No severe spinal canal stenosis. No significant neural foraminal narrowing. C7-T1: No significant disc protrusion. No severe spinal canal stenosis. No significant neural foraminal narrowing. Soft tissues: Unremarkable. Vasculature: Bilateral calcified carotid plaque. Lungs: Lung apices are normal. IMPRESSION: No evidence for acute posttraumatic abnormality. Dictated and Authenticated by: Roxi Solis MD. Ordering:NICOLETTE Gray MD
[2019-11-19 21:55] VITALS: BP 123/68; PULSE 69; RESP 16; TEMP 37; O2SAT 92
== END 2019-11-19 21:35 | disposition home or self-care (01) ==
PROVIDERS: Emergency Provider Student in an Organized Health Care Education/Training Program; PCP Nurse Practitioner Family
DX: S09.90XA Unspecified injury of head, initial encounter (principal); S00.01XA Abrasion of scalp, initial encounter; S61.212A Laceration without foreign body of right middle finger without damage to nail, initial encounter; W01.198A Fall on same level from slipping, tripping and stumbling with subsequent striking against other object, initial encounter; F10.120 Alcohol abuse with intoxication, uncomplicated; I10 Essential (primary) hypertension
CPT/HCPCS: 12001; 90471; 99284; 70450; 72125; 73130; 99283

== ENCOUNTER → 2019-11-28 13:54 | Outpatient (BNVA) | payer MEDICARE, BC, SELFPAY | PROVIDERS: PCP Nurse Practitioner Family; Referring Provider Nurse Practitioner Family; Visit Provider Surgery | DX: L76.34 Postprocedural seroma of skin and subcutaneous tissue following other procedure (principal); T88.8XXD Other specified complications of surgical and medical care, not elsewhere classified, subsequent encounter | CPT/HCPCS: 99211; 99213 ==

== ENCOUNTER 2019-12-02 07:35 | Outpatient (CLI) | payer MEDICARE, BC, SELFPAY ==
[2019-12-02 22:37] LABS: COVID-19 RT-PCR UVMMC Result Negative (Negative)
== END 2019-12-02 07:55 ==
PROVIDERS: PCP Nurse Practitioner Family; Visit Provider Surgery
DX: Z01.818 Encounter for other preprocedural examination (principal); Z03.818 Encounter for observation for suspected exposure to other biological agents ruled out
CPT/HCPCS: U0003

== ENCOUNTER 2019-12-06 06:07 | Day surgery (SDC) | payer MEDICARE, BC, SELFPAY ==
[2019-12-06 06:15] VITALS: BP 137/77; PULSE 54; RESP 18; TEMP 36.3; O2SAT 95
[2019-12-06] MEDS: Lactated Ringers 1,000 ML 80 ML IV (07:05)
--- NOTE | 2019-12-06 07:23 | PDOC.DSDIS_ITS ---
Discharge Plan Disposition Patient Disposition: HOME Condition: Good Discharge Details Reason For Visit: Drainage chronic left groin seroma Attending Provider: Loren Nina Primary Care Provider: Jennifer Huang Home Meds and New Rx's Prescriptions: Continued metoprolol succinate 25 mg tablet extended release 24 hr 25 mg PO BID RF: 0 atorvastatin [Lipitor] 20 MG tablet 20 mg PO DAILY RF: 0 amlodipine 10 MG tablet 10 mg PO DAILY RF: 0 aspirin [Aspirin Low-Strength] 81 MG tablet,chewable 81 mg PO DAILY RF: 0 multivitamin 1 EACH capsule 1 cap PO DAILY RF: 0 glucosam-chond ci-sworhi-ta ac 1 EACH capsule 1 tab PO DAILY RF: 0 acetaminophen [Tylenol] 325 MG tablet 650 mg PO Q6H PRN PRNRF: 0 ibuprofen [Advil] 200 mg Tablet 400 mg PO PRN PRNRF: 0 Discharge Instructions Additional Instructions: The top bandage can be removed tomorrow. Monitor daily drain output and record. It is okay to shower tomorrow, the water can run over the incision and drain site. Do not swim or soak in a tub for two weeks. Call for any concerns including fever, increased pain, incision redness or drainage. Do not lift more than 15 pounds for two weeks. Walking and stairs are fine. Do not drive if on narcotic pain meds or if limited by pain. May use Tylenol alternating with ibuprofen for pain control. Ice is also an option. The maximum dose for Tylenol is 4000 mg/day. May use ibuprofen 800 mg every 8 hours as needed. If concerned about constipation, you may use a stool softener or milk of magnesia. Referrals: Loren Nina MD [ [facility]] - (Return for a postop check next week.) Activity:: Light for two weeks Remove Dressings/Wound Care:: 24 hours Shower/Bathe:: 24 hours Diet:: As Tolerated Discharge Orders Discharge Orders: Discharge Order (Routine); Ordered 12/06/19 Ordered By: Loren Nina DS: Diagnosis Discharge Diagnosis (1) Seroma after procedure: Status: Acute
--- NOTE | 2019-12-06 07:27 | ROE_ITS ---
Date of service: 12/06/19 Operative Note Operative Note DATE OF PROCEDURE: 12/06/19 PRE-OP DIAGNOSIS: Chronic left groin seroma POST-OP DIAGNOSIS: same PROCEDURE: Debridement chronic seroma cavity left groin and drain placement SURGEON: Loren Nina ANESTHESIA: MAC and local Patient was transported to: same day Indications: This 74-year-old man had a benign lymph node excised from his left groin last fall. He has had a recurrent seroma drained several times. Follow- up ultrasound showed a loculated 9.5 cm fluid collection. Procedure Description: The patient was placed supine on the operating table and his left groin was prepped and draped sterilely. The prior incision was infiltrated with local anesthetic and an incision made. A large amount of clear seroma fluid was released. The patient had a cavity lined with smooth chronic inflammatory tissue which was preventing the pocket from resolving when drained. This encompassed the area of the original node removal and also extended down towards the perineum. The wall of the cavity was grasped with Allises and excised carefully with cautery removing only the thin layer of abnormal tissue down to normal fat. I removed about 90% of the wall of the cavity leaving only a small amount distally and a small amount approximately where it abutted the vascular tissue. This area was cauterized. There is good hemostasis. A 10 flat Guanako-Avelar drain was brought out through a small stab incision lateral to the original incision. This was placed down into the distal aspect of the pocket. This was sutured in place with a 3-0 nylon. The incision was then closed with interrupted 3-0 nylon sutures. He tolerated the procedure well and was stable to recovery
[2019-12-06] MEDS: ceFAZolin 2 GM/50 ML BAG IVPB (07:30)
--- NOTE | 2019-12-06 08:04 | SOFT_PTH ---
PATIENT: Murphy Lozoya LOC: [facility] U#:[id number] AGE/SX: 74/M ROOM: RE12/06/[address]: Loren Nina MD : 1945 BED: DIS: 12/06/2019 SPEC #: [id number] RECD: 12/06/19 12:55 STATUS: LEONCIO REEagle #: [id number] MICHAEL: 12/06/19 08:[address]: Loren Nina DEPT: Surgical Specimen RECD BY: Mary Nye ENTERED: 12/06/19 12:56 SP TYPE: SOFT OTHR DR: Jennifer Huang Tissues: 1 - SOFT TISSUE MISC (INC. LIPOMA) Procedures: GROSS AND MICRO LEVEL 3 Comments: [id number]
[2019-12-06] MEDS: Lidocaine 1% Multi-Dose 50 ML VIAL (08:14)
[2019-12-06] MEDS: Acetaminophen 325 MG TAB 650 MG PO (08:55)
[2019-12-06] MEDS: Ibuprofen 800 MG TAB PO (08:55)
[2019-12-06 09:00] VITALS: BP 138/82; PULSE 50; RESP 17; TEMP 36.1; O2SAT 94
== END 2019-12-06 10:22 | disposition home or self-care (01) ==
PROVIDERS: PCP Nurse Practitioner Family; Visit Provider Surgery
PROC: (CPT 11042; principal; 2019-12-06 07:30)
DX: L76.34 Postprocedural seroma of skin and subcutaneous tissue following other procedure (principal)
CPT/HCPCS: 11042; 88304; J0690

== ENCOUNTER → 2019-12-12 09:23 | Outpatient (BNVA) | payer MEDICARE, BC, SELFPAY | PROVIDERS: PCP Nurse Practitioner Family; Referring Provider Nurse Practitioner Family; Visit Provider Surgery | DX: Z48.817 Encounter for surgical aftercare following surgery on the skin and subcutaneous tissue (principal) ==

== ENCOUNTER → 2019-12-29 14:16 | Outpatient (BNVA) | payer MEDICARE, BC, SELFPAY | PROVIDERS: PCP Nurse Practitioner Family; Referring Provider Nurse Practitioner Family; Visit Provider Surgery | DX: Z48.89 Encounter for other specified surgical aftercare (principal) ==

== ENCOUNTER 2020-08-03 13:57 | Outpatient (REF) | payer MEDICARE, BC, SELFPAY ==
[2020-08-03 16:13] LABS: Hemoglobin A1C 5.7 % (<5.7)
[2020-08-03 16:14] LABS: Anion Gap 14.6 mmol/L (3-11); BUN 19 mg/dL (7-18); CO2 22.4 mmol/L (21.0-32.0); CREATININE 0.8 mg/dL (0.70-1.30); Calcium 9.6 mg/dL (8.5-10.1); Chloride 105 mmol/L (98-107); Glucose 87 mg/dL (74-106); Potassium 4.4 mmol/L (3.5-5.1); Sodium 142 mmol/L (136-145)
== END 2020-08-03 13:58 | disposition home or self-care (01) ==
LOC: NCHCN 13:57
PROVIDERS: PCP Nurse Practitioner Family; Visit Provider Nurse Practitioner Family
DX: R73.9 Hyperglycemia, unspecified (principal); I10 Essential (primary) hypertension
CPT/HCPCS: 80048; 83036

== ENCOUNTER 2021-11-25 15:52 | Outpatient (REF) | payer MEDICARE, BC, SELFPAY ==
[2021-11-25 18:53] LABS: Abs Immature Grans 0.03 10^3/uL (0.0-0.06); Absolute Basophil Count 0.03 10^3/uL (0.0-0.2); Absolute Lymphocyte Count 1.82 10^3/uL (1.2-3.4); Absolute Monocyte Count 0.84 10^3/uL (0.1-0.8); Absolute Neutrophil Count 4.89 10^3/uL (1.2-6.7); Basophils % 0.4; Eosinophils % 2.6; HGB 7.3 g/dL (13.5-17.5); Immature Grans % 0.4; Lymphocytes % 23.3; MCH 30.9 pg (27.0-33.0); MCHC 31.7 % (32.0-36.0); MCV 98 fL (80-95); MPV 9.9 fL (8.0-11.0); Monocytes % 10.8; Neutrophils % 62.5; Platelet Count 437 10^3/uL (130-400); RBC 2.36 10^6/uL (4.36-5.78); RDW 15.6 % (11.8-14.1); RDW-SD 53.4 fL; WBC 7.81 10^3/uL (4.4-10.8)
== END 2021-11-25 15:53 | disposition home or self-care (01) ==
LOC: NCHCN 15:52
PROVIDERS: PCP Nurse Practitioner Family; Visit Provider Nurse Practitioner Family
DX: D62 Acute posthemorrhagic anemia (principal); K26.9 Duodenal ulcer, unspecified as acute or chronic, without hemorrhage or perforation
CPT/HCPCS: 85025

== ENCOUNTER → 2022-02-04 00:32 | Outpatient (CLI) | payer MEDICARE, BC, SELFPAY ==
--- NOTE | 2022-02-04 08:45 | DI.NM_ITS ---
APPROVED REPORT Exam: Exercise Treadmill Patient Location: Out-Patient Room/Bed: Stress Nurse: Radha Bright RN Ordering Provider:ANTHONY RODRIGUEZ, Contact Number: [phone] BMI: 25.84 Baseline Rhythm: Sinus Bradycardia Indications: DEMAND ISCHEMIA, ANEMIA, DUODENAL ULCER Medical History Medical History: Carotid stenosis, HLD, HTN, SVT, SOB, Murmur Cardiac Medications: Atorvastatin, Iron supplement Allergies: Lisinopril, Candesartan Cardiac Risk Factors: HTN, Hyperlipidemia, FHX of CAD, Smoking (former) Previous Cardiac Procedures: None Pretest Chest Pain Characteristics: No chest pain Exercise History: Indeterminate Physical Disabilities: None Lung Sounds: Clear to auscultation Heart Sounds: Regular Stress Test Details Test: Exercise stress testing was performed using a modified Rome protocol. Nuclear Acquisition: Rest Tc-99m/Stress Tc-99m 1 day Rest Isotope: Tc-99m Sestamibi. Dose: 10.5 Date: 02/04/2022 Injection Time: 0845 Stress Isotope: Tc-99m Sestamibi. Dose: 33 Date: 02/04/2022 Injection Time: 1055 HR Resting HR Supine: 56 bpm Max Heart Rate (APMHR): 146.389946 bpm Resting HR Standin bpm Target HR (85% APMHR): 124.867223 bpm Max HR Achieved: 128 bpm % of APMHR: 87.67 Recovery HR: 71 bpm HR response to stress: Normal HR response to stress BP Resting BP Supine: 144/74 mmHg Resting BP Standin/78 mmHg Max BP: 158/68 mmHg Recovery BP: 132/72 mmHg BP response to stress: Normal blood pressure response to stress. ECG Resting ECG: Sinus Bradycardia Ectopy: None Stress ECG: Sinus Tachycardia ST Change: No significant ST segment changes noted Arrhythmia: PVCs Recovery ECG: Sinus Rhythm Recovery ST Change: Horizontal ST depression Recovery Arrhythmia: PACs Clinical Reason for Termination: Leg pain Stress Symptoms: Leg pain, Dyspnea Exercise duration: 4 min47 sec Exercise capacity: 5.05 METs Cam Treadmill Score: 4.5 Rate Pressure Product: Stress ECG Conclusion 1. Resting electrocardiogram was within normal limits 2. Patient exercised on the Rome protocol and completed a workload of 5.05 METS, stopping due to leg pain and shortness of breath 3. Normal heart rate and blood pressure response to exercise 4. The electrocardiographic portion of the test was negative for myocardial ischemia 5. See MPI report Cam Treadmill Score is 4.5 which is Moderate risk. Stress Test Summary STAGE Time (mins) Speed (mph) Grade (%) HR BP SpO2 SYMPTOMS METS Supine 56 144/74 Standing 69 140/78 96% 1 3 1.7 10 122 92% 4.5 1 min recovery 105 158/68 93% 3 min recovery 81 146/70 97% 6 min recovery 71 132/72 Speed modified in the second stage to encourage continuation of exercise. Speed maintained at 1.7 mph , elevation increased to 12%. Patient reports difficulty exercising on treadmill at higher speeds due to leg pain. MPI Conclusion Normal myocardial perfusion without evidence of ischemia or prior infarction EF 65%, normal wall motion Radiologist Interpretation Radiologist Interpretation by: Dariel Malik MD Interpretation Date/Time: 02/04/2022 17:06:53
== END ==
PROVIDERS: PCP Nurse Practitioner Family; Visit Provider Nurse Practitioner Family
DX: I24.8 Other forms of acute ischemic heart disease (principal)
CPT/HCPCS: 78452; 93016; 93018; 93017

== ENCOUNTER 2022-08-07 13:54 | Outpatient (REF) | payer MEDICARE, BC, SELFPAY ==
[2022-08-07 16:49] LABS: Calculated LDL 64 mg/dL (<100); Cholesterol 124 mg/dL (<200); HDL Cholesterol 52 mg/dL (40-60); Triglyceride 44 mg/dL (<150)
[2022-08-07 16:50] LABS: Hemoglobin A1C 5.7 % (<5.7)
== END 2022-08-07 13:55 | disposition home or self-care (01) ==
LOC: NCHCN 13:54
PROVIDERS: PCP Nurse Practitioner Family; Visit Provider Nurse Practitioner Family
DX: E78.5 Hyperlipidemia, unspecified (principal); R73.03 Prediabetes
CPT/HCPCS: 80061; 84153; 83036

== ENCOUNTER 2023-02-12 16:49 | Outpatient (REF) | payer MEDICARE, BC, SELFPAY ==
[2023-02-12 16:11] LABS: Abs Immature Grans 0.02 10^3/uL (0.0-0.06); Absolute Basophil Count 0.05 10^3/uL (0.0-0.2); Absolute Eosinophil Count 0.22 10^3/uL (0.0-0.7); Absolute Lymphocyte Count 2.11 10^3/uL (1.2-3.4); Absolute Monocyte Count 0.72 10^3/uL (0.1-0.8); Absolute Neutrophil Count 6.18 10^3/uL (1.2-6.7); Basophils % 0.5; Eosinophils % 2.4; HCT 43.1 % (40.0-50.0); HGB 14.2 g/dL (13.5-17.5); Immature Grans % 0.2; Lymphocytes % 22.7; MCH 30.9 pg (27.0-33.0); MCHC 32.9 % (32.0-36.0); MCV 94 fL (80-95); Monocytes % 7.7; Neutrophils % 66.5; Platelet Count 253 10^3/uL (130-400); RBC 4.59 10^6/uL (4.36-5.78); RDW 14.3 % (11.8-14.1)
[2023-02-12 16:42] LABS: Vitamin D 25 Total 46.6 ng/mL (30-100)
[2023-02-12 16:48] LABS: Hemoglobin A1C 5.5 % (<5.7)
[2023-02-12 16:51] LABS: ALT 25 U/L (16-63); AST 17 U/L (15-37); Albumin 3.6 g/dL (3.4-5.0); Alkaline Phosphatase 106 U/L (46-116); Anion Gap 8.4 mmol/L (3-11); BUN 17 mg/dL (7-18); Bilirubin, Total 0.4 mg/dL (0.2-1.0); CO2 25.6 mmol/L (21.0-32.0); CREATININE 0.7 mg/dL (0.70-1.30); Calcium 9.2 mg/dL (8.5-10.1); Chloride 106 mmol/L (98-107); Estimated GFR 96.09 (mL/min/1.73m2); Glucose 140 mg/dL (74-106); Magnesium 1.7 mg/dL (1.8-2.4); Potassium 4.3 mmol/L (3.5-5.1); Sodium 140 mmol/L (136-145); Total Protein 6.6 g/dL (6.4-8.2); Vitamin B12 279 pg/mL (193-986)
[2023-02-12 16:52] LABS: Folate > 20.0 ng/mL (8.6-20.0)
== END 2023-02-12 16:50 | disposition home or self-care (01) ==
LOC: NCHCN 16:49
PROVIDERS: PCP Nurse Practitioner Family; Visit Provider Nurse Practitioner Family
DX: E78.5 Hyperlipidemia, unspecified (principal); D62 Acute posthemorrhagic anemia; R63.4 Abnormal weight loss; K26.9 Duodenal ulcer, unspecified as acute or chronic, without hemorrhage or perforation; I10 Essential (primary) hypertension
CPT/HCPCS: 80053; 82306; 82607; 82746; 83036; 83735; 85025

== ENCOUNTER 2023-02-26 13:06 | Outpatient (CLI) | payer MEDICARE, BC, SELFPAY ==
[2023-03-03 09:50] LABS: Methylmalonic Acid 0.34 nmol/mL (<=0.40)
== END 2023-02-26 13:07 | disposition home or self-care (01) ==
LOC: LBO 13:07
PROVIDERS: PCP Nurse Practitioner Family; Visit Provider Nurse Practitioner Family
DX: R26.81 Unsteadiness on feet (principal)
CPT/HCPCS: 36415; 80186; 83090

== ENCOUNTER 2023-08-13 14:55 | Outpatient (REF) | payer MEDICARE, BC, SELFPAY ==
[2023-08-13 16:22] LABS: ALT 22 U/L (16-63); AST 23 U/L (15-37); Albumin 3.9 g/dL (3.4-5.0); Alkaline Phosphatase 103 U/L (46-116); Anion Gap 8.1 mmol/L (3-11); BUN 15 mg/dL (7-18); Bilirubin, Total 0.5 mg/dL (0.2-1.0); CO2 30.9 mmol/L (21.0-32.0); CREATININE 0.9 mg/dL (0.70-1.30); Calcium 9.7 mg/dL (8.5-10.1); Chloride 105 mmol/L (98-107); Estimated GFR 89.07 (mL/min/1.73m2); Glucose 71 mg/dL (74-106); Potassium 4.7 mmol/L (3.5-5.1); Sodium 144 mmol/L (136-145); Total Protein 7.4 g/dL (6.4-8.2)
[2023-08-13 16:34] LABS: Abs Immature Grans 0.02 10^3/uL (0.0-0.06); Absolute Basophil Count 0.04 10^3/uL (0.0-0.2); Absolute Eosinophil Count 0.22 10^3/uL (0.0-0.7); Absolute Lymphocyte Count 2.14 10^3/uL (1.2-3.4); Absolute Monocyte Count 0.67 10^3/uL (0.1-0.8); Basophils % 0.5; Eosinophils % 2.5; HGB 14.7 g/dL (13.5-17.5); Immature Grans % 0.2; Lymphocytes % 24.6; MCH 30.8 pg (27.0-33.0); MCHC 32.7 % (32.0-36.0); MCV 94 fL (80-95); MPV 11.4 fL (8.0-11.0); Monocytes % 7.7; Neutrophils % 64.5; Platelet Count 244 10^3/uL (130-400); RBC 4.77 10^6/uL (4.36-5.78); RDW 13.7 % (11.8-14.1); RDW-SD 48.1 fL; WBC 8.69 10^3/uL (4.4-10.8)
== END 2023-08-13 14:56 | disposition home or self-care (01) ==
LOC: NCHCN 14:55
PROVIDERS: PCP Nurse Practitioner Family; Visit Provider Nurse Practitioner Family
DX: I10 Essential (primary) hypertension (principal); D62 Acute posthemorrhagic anemia; E83.42 Hypomagnesemia
CPT/HCPCS: 80053; 83735; 85025

== ENCOUNTER → 2023-11-12 10:54 | Outpatient (BNVA) | payer MEDICARE, BC, SELFPAY | PROVIDERS: PCP Nurse Practitioner Family; Referring Provider Nurse Practitioner Family; Visit Provider Physical Therapy Assistant | DX: Z12.11 Encounter for screening for malignant neoplasm of colon (principal); I70.0 Atherosclerosis of aorta ==

== ENCOUNTER 2024-01-01 10:24 | Emergency (ER) | payer MEDICARE, BC, SELFPAY ==
[2024-01-01] VITALS (26 sets, daily range): BP systolic 103–142; BP diastolic 59–76; PULSE 59–89; RESP 11–24; TEMP 36.6–36.9; O2SAT 92–97
--- NOTE | 2024-01-01 11:15 | RT.EKG_ITS ---
APPROVED REPORT Exam: Resting ECG Reason for Exam: sweaty Patient Location: E HR:63 bpm ECG Measurements Heart Rate 63 AXIS IA 201 P 62 QRSd 97 QRS -56 QT 429 T 54 QTc 441 Conclusion Pacemaker spikes or artifacts...timing non-diagnostic Sinus rhythm...normal P axis, V-rate 60- 99 LAD, consider left anterior fascicular block...axis(240,-40), S>R II III aVF Low voltage, extremity leads...all extremity leads <0.5mV sinus, left axis, normal itnervals, non ischemic
--- NOTE | 2024-01-01 11:15 | DI.CT_ITS ---
Exam(s) CT ABDOMEN PELVIS W EXAM: CT ABDOMEN PELVIS W CLINICAL HISTORY: diarrrhea, nausea, hx bowel resection. TECHNIQUE: Imaging Protocol: Axial computed tomography images with coronal and sagittal reformatted images were created and reviewed CONTRAST MATERIAL: Intravenous: Omnipaque 350 Contrast volume:100 ml Oral: no CT,NM,TMT NM MPI REST STRESS GRP from 02/04/2022 FINDINGS: ABDOMEN and PELVIS: Lung Bases: Emphysematous changes and interstitial. Liver: Normal density. No suspicious mass. Gallbladder and biliary tract: Tiny gallstones. No wall thickening. No biliary dilation. Pancreas: Normal density. No abnormal calcifications or inflammatory process. No evidence of mass. Spleen: Normal. Kidneys: Normal size, contour and axis. No radiodense stones. No obstructive uropathy. No suspicious masses seen. Adrenal glands: No masses seen. Vasculature: Abdominal aorta non-dilated. Severe atherosclerotic changes. Soft tissues: Dehiscence of the anterior abdominal wall above the level of the umbilicus again noted. Bladder: No gross wall thickening. No calculi.No focal mass. Bowel: Prior right partial hemicolectomy and ileocolic anastomosis. Dilatation with air and fluid in volving the majority of the colon with some sparing of the rectosigmoid. The colon is extremely redu ndant. Dilatation of distal ileum as well. No definite transition point. No bowel wall thickening. Peritoneal cavity: No ascites. No focal collection. No mesenteric inflammatory response. Bones: Advanced degenerative changes in the spine. Reproductive organs: Unremarkable. Lymph nodes: No pathologically enlarged lymph nodes. IMPRESSION:: Dilatation of: Distal small bowel with air and fluid. No definite transition point. N o bowel wall thickening. The findings could represent ileus and diarrheal illness. Findings called to Dr. Dempsey of the emergency department. RADIATION DOSE DELIVERED: Total DLP DATA REPOSITORY: All CT scans at this facility are submitted to the National Radiology Data Registry (NRDR) Dose Index Registry (DIR) with the [employer] (ACR). RADIATION OPTIMIZATION: All CT scans at this facility use at least one of these dose optimization te chniques: automated exposure control; mA and/or kV adjustment per patient size (includes targeted exa ms where dose is matched to clinical indication); or iterative reconstruction.
--- NOTE | 2024-01-01 11:45 | ED.GENADUL_ITS ---
Discharge Plan Disposition Patient Disposition: Home Condition: Improving Discharge Details Chief Complaint: Nausea/Vomit/Diar Clinical Impression: Diarrhea Primary Care Provider: Jennifer Huang ED Provider: Juan J Dempsey Home Meds and New Rx's Prescriptions: No Action metoprolol succinate 25 mg tablet extended release 24 hr 12.5 mg PO DAILY metoprolol tartrate 25 mg tablet 25 mg PO ONCE PRN Rx Instructions: Takes 1 tab by mouth as needed for SVT symptoms ferrous sulfate 325 mg (65 mg iron) tablet 325 mg PO DAILY magnesium 250 mg tablet 250 mg PO DAILY multivitamin Tablet 1 tab PO DAILY pantoprazole 40 mg tablet,delayed release (DR/EC) 40 mg PO DAILY atorvastatin [Lipitor] 20 MG tablet 20 mg PO DAILY acetaminophen [Tylenol] 325 MG tablet 650 mg PO Q6H PRN PRN0RF ibuprofen [Advil] 200 mg Tablet 400 mg PO PRN PRN Discharge Instructions Instructions: Diarrhea, Adult ED Additional Instructions: Please help with your primary care physician. Return to the emergency department for any worsening symptoms HPI General Date/Time Provider Initiated Documentation: 01/01/24 11:22 . HPI Narrative: 78-year-old male history of bowel resection, presents with nausea and diarrhea over the last couple of days. Related Data Home Medications ?Medication ?Instructions ?Recorded ?Confirmed atorvastatin 20 mg tablet (Lipitor) 20 mg PO DAILY 12/04/17 01/01/24 acetaminophen 325 mg tablet 650 mg (2 x 325 mg) PO Q6H PRN PRN 12/25/17 01/01/24 (Tylenol) ibuprofen 200 mg tablet (Advil) 400 mg PO PRN PRN 12/09/18 01/01/24 ferrous sulfate 325 mg (65 mg 325 mg PO DAILY 11/12/23 01/01/24 iron) tablet magnesium 250 mg tablet 250 mg PO DAILY 11/12/23 01/01/24 metoprolol succinate 25 mg 12.5 mg PO DAILY 11/12/23 01/01/24 tablet,extended release 24 hr metoprolol tartrate 25 mg tablet 25 mg PO ONCE PRN 11/12/23 01/01/24 multivitamin 1 tab PO DAILY 11/12/23 01/01/24 pantoprazole 40 mg tablet,delayed 40 mg PO DAILY 11/12/23 01/01/24 release Previous Rx's ?Medication ?Instructions ?Recorded acetaminophen 325 mg tablet 650 mg (2 x 325 mg) PO Q6H PRN PRN 12/25/17 (Tylenol) Allergies Allergy/AdvReac Type Severity Reaction Status Date / Time candesartan (From At[place]and) Allergy Mild SOB/Rash Verified 01/01/24 11:22 lisinopril Allergy Mild Numbness & Verified 01/01/24 11:22 tongue swelling General Stated Complaint: Nausea/Vomit/Diar CANDY: 3 Exam Narrative Exam Narrative: Alert oriented nontoxic resting comfortably Slight drying for mucosa Lungs clear bilaterally speaking full sentences No tachycardia Abdomen soft nontender nondistended, midline laparotomy scar with ventral hernia soft nontender easily reducible no overlying skin changes Slight decrease skin turgor Alert moving all extremities no deficit Course Vital Signs Vital signs: Vital Signs Temperature 36.6 C 01/01/24 10:33 Pulse 75 01/01/24 10:33 Respiratory Rate 16 01/01/24 10:33 Blood Pressure 103/74 01/01/24 10:33 Pulse Oximetry 97 01/01/24 10:33 Temperature 36.9 C 01/01/24 11:22 Temperature Source Temporal Artery Scan 01/01/24 11:22 Pulse 89 01/01/24 11:22 Respiratory Rate 16 01/01/24 11:22 Respiratory Effort Normal 01/01/24 11:25 Blood Pressure 122/72 01/01/24 11:22 Blood Pressure Mean 88 01/01/24 11:22 Blood Pressure Position Supine 01/01/24 11:22 Pulse Oximetry 97 01/01/24 10:33 Pain Level 0 01/01/24 11:22 Medical Decision Making 78-year-old male history of bowel resection presents with nausea and diarrhea over the last couple of days, dry skin turgor dry oral mucosa, hemodynamically stable afebrile nontoxic, midline 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 Screening labs imaging fluids antiemetics close reassessment 13: 34 feeling much better fluids resting comfortably. No further diarrhea no nausea no vomiting. Abdomen soft nontender nondistended. Dilated loops of bowel on CT however patient has no symptoms of obstruction at this time. Consider ileus in the setting of enteritis. Quality:SDOH Health Related Social Needs: No Data to Display PFSH All Active Problems (Updated 01/01/24 @ 13:37 by Juan J Dempsey MD) Diarrhea (Acute) Postop check (Acute) Pre-op evaluation (Acute) Seroma after procedure (Acute) Sigmoid volvulus (Acute) Ischemic colon (Acute) Shortness of breath (Acute) Hypoxemia (Acute) Postoperative ileus (Acute) Postoperative wound dehiscence (Acute) Anastomotic leak of intestine (Acute) Sepsis (Acute) Intra-abdominal abscess post-procedure (Acute) Wound infection after surgery (Acute) Hypotension (Acute) Malnutrition of mild degree (Acute) other (Acute) Malnutrition (Acute) Delayed surgical wound healing (Acute) Cellulitis (Acute) Tachycardia (Acute) Lymphadenopathy, inguinal (Acute) Medical History (Updated 01/01/24 @ 13:37 by Juan J Dempsey MD) History of deviated nasal septum SVT (supraventricular tachycardia) BEING FOLLOWED BY [facility] AT [facility], DR. 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 DENIES THIS Hyperlipidemia Hypertension Surgical History Hx of tonsillectomy Hx of adenoidectomy Hx of repair of left rotator cuff S/P left colectomy Total knee replacement status R knee S/P appendectomy Family History Mother Breast cancer Father Stroke Social History Smoking/Tobacco Use Status: Former Tobacco Use Quit Date: 06/04/19 Smoking risk assessment performed?: Yes Alcohol Intake: current Alcohol Intake frequency: 3 or more drinks per day Alcohol type: beer Drug use: Never Substance use type: does not use Details: alcohol: t-2, one beer Current gender identity: male Do you feel safe at home: Yes Do you feel safe in your relationship?: Yes
[2024-01-01] MEDS: Ondansetron 4 MG/2 ML VIAL IVP (11:53)
[2024-01-01] MEDS: Normal Saline 1,000 ML 1000 ML IV (11:53)
[2024-01-01 12:05] LABS: Abs Immature Grans 0.02 10^3/uL (0.0-0.06); Absolute Basophil Count 0.02 10^3/uL (0.0-0.2); Absolute Eosinophil Count 0.19 10^3/uL (0.0-0.7); Absolute Lymphocyte Count 1.35 10^3/uL (1.2-3.4); Absolute Monocyte Count 0.82 10^3/uL (0.1-0.8); Absolute Neutrophil Count 4.22 10^3/uL (1.2-6.7); Basophils % 0.3 %; Eosinophils % 2.9 %; HCT 47.8 % (40.0-50.0); Immature Grans % 0.3 %; Lymphocytes % 20.4 %; MCH 31.3 pg (27.0-33.0); MCHC 33.5 % (32.0-36.0); MCV 94 fL (80-95); MPV 10.3 fL (8.0-11.0); Monocytes % 12.4 %; Neutrophils % 63.7 %; Platelet Count 244 10^3/uL (130-400); RBC 5.11 10^6/uL (4.36-5.78); RDW 13.2 % (11.8-14.1); RDW-SD 45.2 fL; WBC 6.62 10^3/uL (4.4-10.8)
[2024-01-01 12:18] LABS: PTT Activated 29.2 sec (23.6-32.8); Prothrombin Time 10.4 sec (9.1-11.1)
[2024-01-01 12:19] LABS: ALT 25 U/L (16-63); AST 17 U/L (15-37); Albumin 3.9 g/dL (3.4-5.0); Alkaline Phosphatase 143 U/L (46-116); Anion Gap 10.2 mmol/L (3-11); BUN 14 mg/dL (7-18); Bilirubin, Total 0.66 mg/dL (0.2-1.0); CO2 25.8 mmol/L (21.0-32.0); Chloride 103 mmol/L (98-107); Glucose 93 mg/dL (74-106); Lipase 15 U/L (16-77); Magnesium 1.8 mg/dL (1.8-2.4); Potassium 3.5 mmol/L (3.5-5.1); Sodium 139 mmol/L (136-145); Total Protein 7.7 g/dL (6.4-8.2)
[2024-01-01 12:36] LABS: COVID-19 PCR Negative (Negative); Influenza A PCR Negative (Negative); Influenza B PCR Negative (Negative); RSV PCR Negative (Negative)
[2024-01-01] MEDS: Omnipaque 350 MG/ML 100 ML BTL IJ (12:41)
[2024-01-01 12:42] LABS: Source Nasopharynx
[2024-01-01] MEDS: Normal Saline - Diluent 50 ML VIAL IV (12:44)
== END 2024-01-01 13:47 | disposition home or self-care (01) ==
PROVIDERS: Emergency Provider Emergency Medicine; PCP Nurse Practitioner Family
DX: R11.0 Nausea (principal); R19.7 Diarrhea, unspecified; I10 Essential (primary) hypertension; E78.5 Hyperlipidemia, unspecified; Z87.891 Personal history of nicotine dependence
CPT/HCPCS: 36415; 80053; 82962; 83690; 87637; 93005; 96361; 96374; 99284; 74177; 83735; 85025; 85610; 85730; 93010; J2405; J3490

== ENCOUNTER 2024-01-02 17:54 | Observation (INO) | payer MEDICARE, BC, SELFPAY ==
[2024-01-02] VITALS (37 sets, daily range): BP systolic 110–133; BP diastolic 51–63; PULSE 58–73; RESP 13–21; TEMP 36.2; O2SAT 92–98
--- NOTE | 2024-01-02 18:00 | RT.EKG_ITS ---
APPROVED REPORT Exam: Resting ECG Reason for Exam: sob Patient Location: E HR:62 bpm ECG Measurements Heart Rate 62 AXIS TN 52 P 0 QRSd 98 QRS 0 QT 404 T 57 QTc 422 Conclusion Sinus rhythm...normal P axis, V-rate 60- 99 Ventricular premature complex...V complex w/ short R-R interval appropriate intervals no ST segment or T wave abnormalitites to suggest occlusive NM
--- NOTE | 2024-01-02 19:15 | DI.CT_ITS ---
Exam(s) CT CHEST PE ABD PELVIS W EXAM: CT CHEST PE ABD PELVIS W CLINICAL HISTORY: shortness of breath, pain, hx of hemicolectomy, hernia. TECHNIQUE: Imaging Protocol: Axial CT angiography was performed with multi-slice acquisition and mu lti-planar and/or 3D reconstructions. CONTRAST MATERIAL: Intravenous: Omnipaque 350 Contrast volume:100 ml COMPARISON: CT CT ABDOMEN PELVIS W from 01/01/2024 FINDINGS: CHEST: Pulmonary Arteries: No evidence of filling defects to suggest pulmonary emboli. Tracheobronchial tree: No bronchiectasis or mucus plugging. Mediastinum and [place]: No dominant adenopathy or fluid collection. Pulmonary parenchyma: No consolidation or dominant measurable mass. Diffuse moderate emphysematous changes. Pleura: No effusion. No pneumothorax. Heart: The heart is notdilated. Aortic valvular calcification and coronary artery calcifications are seen. Aorta: Thoracic aorta non-dilated. No dissection. Bones: Unremarkable for age. Tubes, Catheters, and Lines: None. Soft tissues: Unremarkable. ABDOMEN and PELVIS: Liver: Normal size. Normal density. No suspicious measurable mass. Portal, Superior Mesenteric, and Splenic Veins: Unremarkable. Gallbladder and Biliary Tract: Gallstones.. No biliary dilatation. Pancreas: Normal density, no abnormal calcifications or inflammatory process. Spleen: Normal. Adrenals: No masses seen. Kidneys: Normal size, contour and axis. No radiodense stones. No obstructive uropathy. No masses seen . Vasculature: Abdominal aorta non-dilated. Bowel: Stomach distended with air and fluid. There are ingested tablets in the dependent portion. S tatus post partial right hemicolectomy and ileocolic anastomosis again noted. Dilated fluid and air- filled colon again noted. Dilated loops small bowel seen in the pelvis. Proximal bowel loops are no rmal in diameter. Area of transition point not definitely seen. Findings could indicate small bowel obstruction versus ileus. Distal colon is decompressed. Similar features to previous exam. No bow el wall thickening. Peritoneal Cavity: No ascites, collection or mesenteric inflammatory response. Lymph Nodes: Within normal limits. Soft Tissues: Dehiscence of anterior abdominal wall in the midline Bladder: Symmetric distention, no gross wall thickening. Reproductive Organs: Unremarkable as visualized. Bones: Advanced degenerative changes in the spine. IMPRESSION: 1. No evidence of pulmonary embolism or aortic dissection. Emphysematous changes.. 2. Similar appearance of dilatation of colon with fluid and air. No wall thickening. Dilatation of the distal loops of small bowel. No definite transition point visualized. RADIATION DOSE DELIVERED: Total DLP DATA REPOSITORY: All CT scans at this facility are submitted to the National Radiology Data Registry (NRDR) Dose Index Registry (DIR) with the [employer] (ACR). RADIATION OPTIMIZATION: All CT scans at this facility use at least one of these dose optimization te chniques: automated exposure control; mA and/or kV adjustment per patient size (includes targeted exa ms where dose is matched to clinical indication); or iterative reconstruction.
--- NOTE | 2024-01-02 19:15 | RT.EKG_ITS ---
APPROVED REPORT Exam: Resting ECG Reason for Exam: shortness of breath Patient Location: E HR:60 bpm ECG Measurements Heart Rate 60 AXIS OK 195 P 71 QRSd 94 QRS -10 QT 423 T 49 QTc 422 Conclusion Sinus rhythm...normal P axis, V-rate 60- [address] segment or T wave abnormalitites to suggest occlusive VT
[2024-01-02 19:24] LABS: Abs Immature Grans 0.02 10^3/uL (0.0-0.06); Absolute Basophil Count 0.02 10^3/uL (0.0-0.2); Absolute Eosinophil Count 0.26 10^3/uL (0.0-0.7); Absolute Lymphocyte Count 2.21 10^3/uL (1.2-3.4); Absolute Monocyte Count 1.42 10^3/uL (0.1-0.8); Absolute Neutrophil Count 4.91 10^3/uL (1.2-6.7); Basophils % 0.2 %; Eosinophils % 2.9 %; HCT 43.1 % (40.0-50.0); HGB 14.5 g/dL (13.5-17.5); Immature Grans % 0.2 %; MCH 31.4 pg (27.0-33.0); MCHC 33.6 % (32.0-36.0); MCV 93 fL (80-95); MPV 10.3 fL (8.0-11.0); Monocytes % 16.1 %; Neutrophils % 55.6 %; Platelet Count 244 10^3/uL (130-400); RBC 4.62 10^6/uL (4.36-5.78); RDW 13.2 % (11.8-14.1); RDW-SD 45.5 fL; WBC 8.84 10^3/uL (4.4-10.8)
[2024-01-02] MEDS: Omnipaque 350 MG/ML 100 ML BTL IJ (19:42)
[2024-01-02] MEDS: Normal Saline - Diluent 50 ML VIAL IJ (19:42)
[2024-01-02 19:46] LABS: ALT 22 U/L (16-63); AST 17 U/L (15-37); Albumin 3.3 g/dL (3.4-5.0); Alkaline Phosphatase 122 U/L (46-116); Anion Gap 10.4 mmol/L (3-11); BUN 11 mg/dL (7-18); Bilirubin, Total 0.44 mg/dL (0.2-1.0); CO2 23.6 mmol/L (21.0-32.0); CREATININE 0.9 mg/dL (0.70-1.30); Calcium 8.5 mg/dL (8.5-10.1); Chloride 106 mmol/L (98-107); Estimated GFR 88.51 (mL/min/1.73m2); Glucose 97 mg/dL (74-106); Lipase 14 U/L (16-77); Magnesium 1.6 mg/dL (1.8-2.4); NT-proBNP 239 pg/mL (<300); Potassium 3.2 mmol/L (3.5-5.1); Sodium 140 mmol/L (136-145); Total Protein 6.8 g/dL (6.4-8.2); Troponin I < 50 ng/L (< or =60)
[2024-01-02] MEDS: Albuterol 2.5 MG/3 ML INH SOLN VIAL UPD (19:50)
[2024-01-02] MEDS: Prochlorperazine 10 MG/2 ML VIAL 5 MG IVP (19:50)
[2024-01-02] MEDS: Normal Saline 500 ML IV ×2 (19:50→23:02)
[2024-01-02 20:57] LABS: Bilirubin Small (Negative); Blood Negative (Negative); Clarity Clear (Clear); Glucose Negative (Negative); Ketones Trace mg/dL (Negative); Leukocyte Esterase Negative (Negative); Nitrite Negative (Negative); Specific Gravity 1.025 (1.005-1.025); Urobilinogen 0.2 mg/dL (Up to 0.2)
--- NOTE | 2024-01-02 21:52 | DI.VRAD_ITS ---
Addendum created by Macho Pete MD on 01/02/2024 9:52:23 PM EDT: ADDENDUM: Critical findings within the addendum were discussed with Mary Neff at 01/02/2024 9:52 PM EDT . Addendum created by Macho Pete MD on 01/02/2024 9:48:40 PM EDT: ADDENDUM: Multiple distended fluid-filled loops of small bowel in the abdomen measuring up to 4.5 cm. Finding is consistent with small bowel obstruction. Small ventral hernia containing loops of small bowel. Transition point not clearly identified. Please correlate with physical exam to exclude incarcerated hernia. Mild diffuse wall thickening in multiple loops of proximal small bowel. This finding is nonspecific. Fluid-filled cecum and descending colon. Air-filled transverse colon. No wall thickening in the colon. Initial report created on 01/02/2024 9:44:01 PM EDT: PROCEDURE INFORMATION: Exam: CTA Chest With Contrast CTA Abdomen With Contrast Exam date and time: 01/02/2024 7:44 PM Age: 78 years old Clinical indication: Other: Shortness of breath, pain, HX of hemicolectomy, hernia TECHNIQUE: Imaging protocol: Computed tomographic angiography of the chest with contrast. Exam focused on the arteries. Computed tomographic angiography of the abdomen with contrast. Exam focused on the arteries. 3D rendering (Not supervised by radiologist): MIP and/or 3D reconstructed images were created by the technologist. Contrast material: 350; Contrast volume: 100 ml; Contrast route: INTRAVENOUS (IV); COMPARISON: CT ABDOMEN PELVIS W 01/01/2024 12:42 PM FINDINGS: VASCULATURE: Pulmonary arteries: No evidence of pulmonary embolism. Aorta: No aortic aneurysm. No aortic dissection. Celiac trunk and mesenteric arteries: No occlusion or significant stenosis. Renal arteries: No occlusion or significant stenosis. CHEST: Lungs: Moderate paraseptal emphysematous changes in bilateral lungs. No infiltrates. No mass lesion or nodule seen. Pleural spaces: Unremarkable. No pneumothorax. No pleural effusion. Heart: Unremarkable. No cardiomegaly. No pericardial effusion. ABDOMEN AND PELVIS: Liver: No mass. Gallbladder and biliary ducts: Unremarkable. No calcified stones. No ductal dilation. Pancreas: Unremarkable. No mass. No ductal dilation. Spleen: Unremarkable. No splenomegaly. Adrenal glands: Unremarkable. No mass. Kidneys and ureters: Unremarkable. No solid mass. No hydronephrosis. Stomach and bowel: Unremarkable. No obstruction. No mucosal thickening. Intraperitoneal space: Unremarkable. No free air. No significant fluid collection. Lymph nodes: Unremarkable. No enlarged lymph nodes. Bones/joints: Unremarkable. No acute fracture. Soft tissues: Unremarkable. IMPRESSION: 1. No evidence of pulmonary embolism. 2. Moderate paraseptal emphysematous changes in bilateral lungs. Dictated and Authenticated by: Macho Pete MD. Ordering:DIRK Hernandez MD
--- NOTE | 2024-01-02 22:11 | ED.GENADUL_ITS ---
Discharge Plan Disposition Patient Disposition: Admit to [facility] Condition: Serious Discharge Details Clinical Impression: SBO (small bowel obstruction), Hypomagnesemia, Hypokalemia Primary Care Provider: Jennifer Huang ED Provider: Mary Neff Home Meds and New Rx's Prescriptions: No Action metoprolol succinate 25 mg tablet extended release 24 hr 12.5 mg PO DAILY metoprolol tartrate 25 mg tablet 25 mg PO ONCE PRN Rx Instructions: Takes 1 tab by mouth as needed for SVT symptoms ferrous sulfate 325 mg (65 mg iron) tablet 325 mg PO DAILY magnesium 250 mg tablet 250 mg PO DAILY multivitamin Tablet 1 tab PO DAILY pantoprazole 40 mg tablet,delayed release (DR/EC) 40 mg PO DAILY atorvastatin [Lipitor] 20 MG tablet 20 mg PO DAILY acetaminophen [Tylenol] 325 MG tablet 650 mg PO Q6H PRN PRN0RF ibuprofen [Advil] 200 mg Tablet 400 mg PO PRN PRN HPI General Date/Time Provider Initiated Documentation: 01/02/24 18:04 . HPI Narrative: This 78-year-old male with history of hemicolectomy in the setting of ischemic colon history of SVT, carotid stenosis, hyperlipidemia, hypertension presents with report of abdominal pain, nausea, lightheadedness and weakness. He states that he has had some intermittent diarrhea. He states he has been unable to vomit but has been dry heaving and very nauseous. Denies any chest pain or shortness of breath. States has been having trouble eating and drinking secondary to discomfort and nausea. Hemicolectomy in 2020 per patient. Known ventral hernia per patient. Related Data Home Medications ?Medication ?Instructions ?Recorded ?Confirmed atorvastatin 20 mg tablet (Lipitor) 20 mg PO DAILY 12/04/17 01/01/24 acetaminophen 325 mg tablet 650 mg (2 x 325 mg) PO Q6H PRN PRN 12/25/17 01/01/24 (Tylenol) ibuprofen 200 mg tablet (Advil) 400 mg PO PRN PRN 12/09/18 01/01/24 ferrous sulfate 325 mg (65 mg 325 mg PO DAILY 11/12/23 01/01/24 iron) tablet magnesium 250 mg tablet 250 mg PO DAILY 11/12/23 01/01/24 metoprolol succinate 25 mg 12.5 mg PO DAILY 11/12/23 01/01/24 tablet,extended release 24 hr metoprolol tartrate 25 mg tablet 25 mg PO ONCE PRN 11/12/23 01/01/24 multivitamin 1 tab PO DAILY 11/12/23 01/01/24 pantoprazole 40 mg tablet,delayed 40 mg PO DAILY 11/12/23 01/01/24 release Previous Rx's ?Medication ?Instructions ?Recorded acetaminophen 325 mg tablet 650 mg (2 x 325 mg) PO Q6H PRN PRN 12/25/17 (Tylenol) Allergies Allergy/AdvReac Type Severity Reaction Status Date / Time candesartan (From Atacand) Allergy Mild SOB/Rash Verified 01/01/24 11:22 lisinopril Allergy Mild Numbness & Verified 01/01/24 11:22 tongue swelling General Stated Complaint: Abd Prob CANDY: 3 Exam Narrative Exam Narrative: Alert and oriented 78-year-old male peers unwell, tenderness with palpation and distention abdomen, easily reducible ventral hernia, no CVA tenderness, distal pulses intact, mildly diminished lung sounds, without respiratory distress. No rashes or lesions noted, no peripheral edema, distal pulses intact Course Vital Signs Vital signs: Vital Signs Temperature 36.2 C L 01/02/24 17:55 Pulse 69 01/02/24 17:55 Respiratory Rate 14 01/02/24 17:55 Blood Pressure 111/60 01/02/24 17:55 Pulse Oximetry 97 01/02/24 17:55 Temperature 36.2 C L 01/02/24 17:55 Temperature Source Oral 01/02/24 17:55 Pulse 69 01/02/24 17:55 Respiratory Rate 14 01/02/24 17:55 Respiratory Effort Normal 01/02/24 19:02 Blood Pressure 111/60 01/02/24 17:55 Blood Pressure Position Sitting 01/02/24 17:55 Pulse Oximetry 97 01/02/24 17:55 Oxygen Delivery Method Room Air 01/02/24 17:55 Oxygen Flow Rate 0 01/02/24 17:55 Pain Level 2 01/02/24 17:55 Lab/Test Results Lab/Test Results: Laboratory Tests Range/Units 01/02/24 01/02/24 19:05 20:51 WBC (4.4-10.8) 10^3/uL 8.84 RBC (4.36-5.78) 10^6/uL 4.62 Hgb (13.5-17.5) g/dL 14.5 Hct (40.0-50.0) % 43.1 MCV (80-95) fL 93 MCH (27.0-33.0) pg 31.4 MCHC (32.0-36.0) % 33.6 RDW (11.8-14.1) % 13.2 Plt Count (130-400) 10^3/uL 244 MPV (8.0-11.0) fL 10.3 Immature Gran % % 0.2 Neutrophils % % 55.6 Lymphocytes % % 25.0 Monocytes % % 16.1 Eosinophils % % 2.9 Basophils % % 0.2 Nucleated RBC % (0.0-0.3) % 0.0 Absolute Neutrophils (1.2-6.7) 10^3/uL 4.91 Absolute Lymphocytes (1.2-3.4) 10^3/uL 2.21 Absolute Monocytes (0.1-0.8) 10^3/uL 1.42 H Absolute Eosinophils (0.0-0.7) 10^3/uL 0.26 Absolute Basophils (0.0-0.2) 10^3/uL 0.02 Sodium (136-145) mmol/L 140 Potassium (3.5-5.1) mmol/L 3.2 L Chloride (98-107) mmol/L 106 Carbon Dioxide (21.0-32.0) mmol/L 23.6 Anion Gap (3-11) mmol/L 10.4 BUN (7-18) mg/dL 11 Creatinine (0.70-1.30) mg/dL 0.9 Est GFR (CKD-EPI 2020) (mL/min/1.73m2) 88.51 Glucose (74-106) mg/dL 97 Calcium (8.5-10.1) mg/dL 8.5 Magnesium (1.8-2.4) mg/dL 1.6 L Total Bilirubin (0.2-1.0) mg/dL 0.44 AST (15-37) U/L 17 ALT (16-63) U/L 22 Alkaline Phosphatase (46-116) U/L 122 H Troponin I (< or =60) ng/L < 50 NT-Pro-B Natriuret Pep (<300) pg/mL 239 Total Protein (6.4-8.2) g/dL 6.8 Albumin (3.4-5.0) g/dL 3.3 L Lipase (16-77) U/L 14 L Urine Color (Yellow) Yellow Urine Clarity (Clear) Clear Urine pH (5-8) 6.0 Ur Specific [place] (1.005-1.025) 1.025 Urine Protein (Neg-Trace) mg/dL Trace Urine Ketones (Negative) mg/dL Trace H Urine Blood (Negative) Negative Urine Nitrite (Negative) Negative Urine Bilirubin (Negative) Small H Urine Urobilinogen (Up to 0.2) mg/dL 0.2 Ur Leukocyte Esterase (Negative) Negative Urine Glucose (Negative) mg/dL Negative Medical Decision Making 78-year-old male presents with shortness of breath and abdominal pain with nausea and intermittent diarrhea. His abdomen feels distended per patient he has been having trouble eating and drinking secondary to pain and nausea. History of hemicolectomy with recurrent bowel obstructions. Denies any fever or chills. Denies any blood in vomitus or stool. CTA was ordered to exclude PE without evidence of pulmonary embolism. CT abdomen and pelvis was ordered which shows evidence of small bowel obstruction. Patient's exam is inconsistent with an incarcerated ventral hernia. NG tube was placed and surgery was consulted. Dr. Prince is the surgeon on this evening and will admit patient underneath his care, admission orders have been placed. Patient wishes to be full CODE STATUS. NG tube hooked up to suction draining well, KUB initially does not show adequate placement of NG tube, this was placed several centimeters deeper with good effect. KUB reassuring. Potassium 3.2, 20 mEq of IV potassium and 500 additional cc of maintenance fluids placed. Quality:[facility] Health Related Social Needs: No Data to Display PFSH All Active Problems (Updated 01/02/24 @ 22:58 by OLINDA Varma) Hypokalemia (Acute) Hypomagnesemia (Acute) SBO (small bowel obstruction) (Acute) Diarrhea (Acute) Postop check (Acute) Pre-op evaluation (Acute) Seroma after procedure (Acute) Sigmoid volvulus (Acute) Ischemic colon (Acute) Shortness of breath (Acute) Hypoxemia (Acute) Postoperative ileus (Acute) Postoperative wound dehiscence (Acute) Anastomotic leak of intestine (Acute) Sepsis (Acute) Intra-abdominal abscess post-procedure (Acute) Wound infection after surgery (Acute) Hypotension (Acute) Malnutrition of mild degree (Acute) other (Acute) Malnutrition (Acute) Delayed surgical wound healing (Acute) Cellulitis (Acute) Tachycardia (Acute) Lymphadenopathy, inguinal (Acute) Medical History (Updated 01/02/24 @ 22:58 by OLINDA Varma) History of deviated nasal septum SVT (supraventricular tachycardia) BEING FOLLOWED BY BULLET SLUGS INSPECTOR [place] [facility] 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 DENIES THIS Hyperlipidemia Hypertension Surgical History Hx of tonsillectomy Hx of adenoidectomy Hx of repair of left rotator cuff S/P left colectomy Total knee replacement status R knee S/P appendectomy Family History Mother Breast cancer Father Stroke Social History Smoking/Tobacco Use Status: Former Tobacco Use Quit Date: 06/04/19 Smoking risk assessment performed?: Yes Alcohol Intake: current Alcohol Intake frequency: 3 or more drinks per day Alcohol type: beer Drug use: Never Substance use type: does not use Details: alcohol: t-2, one beer Current gender identity: male Do you feel safe at home: Yes Do you feel safe in your relationship?: Yes
[2024-01-02] MEDS: Lidocaine 2% Jelly 11 ML SYR (22:13)
--- NOTE | 2024-01-02 22:32 | DI.RAD_ITS ---
Exam(s) XR ABDOMEN FLAT PLATE EXAM: 2D digital imaging was performed. CLINICAL HISTORY: ng tube placement. COMPARISON: CT CT ABDOMEN PELVIS W from 01/01/[address] CHEST PE ABD PELVIS W from 01/02/2024 TECHNIQUE: Supine views of the abdomen performed. FINDINGS: BOWEL GAS PATTERN: Diffusely distended loops of bowel, similar to previous day's exam.. Nasogastric tube has been inserted the 1st attempt shows the tip in the fundus of the stomach with this side port at the lower esophagus. The 2nd image shows the tube to be advanced with the side port in the fundu s of the stomach. Contrast is noted within the renal collecting systems and bladder. No dilatation. Bladder is unrema rkable. OSSEOUS STRUCTURES: Advanced degenerative changes in the spine. Visualized portions of the chest: The lungs are clear. IMPRESSION: Status post placement of nasogastric tube. Dilated bowel loops, similar to prior exam. DATA REPOSITORY: RADIATION DOSE DELIVERED:
--- NOTE | 2024-01-02 22:35 | DI.VRAD_ITS ---
PROCEDURE INFORMATION: Exam: XR Abdomen Exam date and time: 01/02/2024 10:18 PM Age: 78 years old Clinical indication: Device placement; Gi device; Nasogastric tube; Patient HX: Ng tube placement TECHNIQUE: Imaging protocol: Radiologic exam of the abdomen. Views: Frontal supine view of the abdomen. 1 View. COMPARISON: CT CHEST PE ABD PELVIS W 01/02/2024 7:44 PM FINDINGS: Tubes, catheters and devices: Nasogastric tube in place with tip in the stomach. . Proximal port is in region of gastric cardia. Gastrointestinal tract: Normal. No bowel dilation. Bones/joints: Unremarkable. IMPRESSION: Nasogastric tube in place with tip in the stomach. . Proximal port is in region of gastric cardia. Dictated and Authenticated by: Macho Pete MD. Ordering:DIRK Hernandez MD
[2024-01-02] MEDS: POTASSIUM CHLORIDE/0.9% NACL 1,000 ML 50 MEQ IV (23:02)
[2024-01-02 23:07] LABS: Troponin I < 50 ng/L (< or =60)
[2024-01-03] VITALS: PULSE 60; RESP 16; O2SAT 95
[2024-01-03 00:01] VITALS: BP 107/46; PULSE 57; PULSE 60; RESP 16; O2SAT 95
[2024-01-03] MEDS: Prochlorperazine 10 MG/2 ML VIAL 5 MG IVP (00:08)
[2024-01-03 00:21] VITALS: BP 117/75; PULSE 64; RESP 20; TEMP 37.4; O2SAT 95
[2024-01-03 04:14] VITALS: BP 118/60; PULSE 63; RESP 16; TEMP 36.5; O2SAT 95
[2024-01-03 07:05] VITALS: BP 101/60; PULSE 62; RESP 18; TEMP 37; O2SAT 93
--- NOTE | 2024-01-03 07:28 | W.PC.ACHO ---
Registration Status: Primary Language: Preferred Language: ED Information & Data Chief Complaint Abd Prob 01/02/24 22:15 Triage Note Pt was seen yesterday in the 01/02/24 17:55 ED for diarrhea. Pt states he is not feeling better; diarrhea has subsided to a degree but he is now more dizzy and weak. Pt also c/o mid abd pain. Medical / Surgical History (Last Reviewed 12/06/19 @ 06:35 by Fabiola Mayo RN) History of deviated nasal septum SVT (supraventricular tachycardia) Carotid stenosis Nephrolithiasis Hyperlipidemia Hypertension (Last Reviewed 12/06/19 @ 06:35 by Fabiola Mayo RN) Hx of tonsillectomy Hx of adenoidectomy Hx of repair of left rotator cuff S/P left colectomy Total knee replacement status S/P appendectomy Most Recent Vital Signs Temperature 37 C 01/03/24 07:05 Temperature Source Temporal Artery Scan 01/03/24 07:05 Pulse 62 01/03/24 07:05 Pulse Rhythm Regular 01/03/24 00:21 Pulse 60 01/03/24 00:01 Respiratory Rate 18 01/03/24 07:05 Respiratory Effort Normal, Non-Labored 01/03/24 00:21 Respiratory Depth Normal 01/03/24 00:21 Respiratory Pattern Normal 01/03/24 00:21 Blood Pressure 101/60 01/03/24 07:05 Blood Pressure Mean 66 01/03/24 00:01 Blood Pressure Position Sitting 01/02/24 17:55 Pulse Oximetry 93 01/03/24 07:05 Oxygen Delivery Method Room Air 01/03/24 07:05 Oxygen Flow Rate 0 01/03/24 07:05 Pain Level 0 01/03/24 07:05 Allergies candesartan (From Atacand) Allergy (Mild, Verified 01/01/24 11:22) SOB/Rash lisinopril Allergy (Mild, Verified 01/01/24 11:22) Numbness & tongue swelling swelling tongue Active Medications Generic Name Dose Route Start Last Admin Trade Name Freq PRN Reason Stop Dose Admin Potassium Chloride/Sodium Chloride 1,000 mls @ 50 mls/hr 01/02/24 22:45 01/02/24 23:02 Kcl 20meq/Ns IV 50 mls/hr INFUSION MICHAEL Administration Iohexol 100 ml 01/02/24 19:45 01/02/24 19:42 Omnipaque 350 Mg/Ml 100 Ml Btl IJ 02/01/24 23:59 100 ml DIRECTED MICHAEL Administration Prochlorperazine Edisylate 5 mg 01/02/24 22:54 01/03/24 00:08 Prochlorperazine 10 Mg/2 Ml Vial IVP 5 mg Q4H PRN PRN Administration Sodium Chloride 50 ml 01/02/24 19:45 01/02/24 19:42 Normal Saline - Diluent 50 Ml Vial IJ 50 ml .FOR DI USE MICHAEL Administration IV IV Catheter Type [Right Peripheral IV Forearm] IV Catheter Gauge [Right 20 Forearm] Diet Orders Category Date Time Status Nothing Per Oral [DIET] Nutrition 01/03/24 Breakfast Active Diagnostics 01/02/24 01/02/24 01/02/24 Range/Units 22:32 20:51 19:05 WBC 8.84 (4.4-10.8) 10^3/uL RBC 4.62 (4.36-5.78) 10^6/uL Hgb 14.5 (13.5-17.5) g/dL Hct 43.1 (40.0-50.0) % MCV 93 (80-95) fL MCH 31.4 (27.0-33.0) pg MCHC 33.6 (32.0-36.0) % RDW 13.2 (11.8-14.1) % Plt Count 244 (130-400) 10^3/uL MPV 10.3 (8.0-11.0) fL Immature Gran % 0.2 % Neutrophils % 55.6 % Lymphocytes % 25.0 % Monocytes % 16.1 % Eosinophils % 2.9 % Basophils % 0.2 % Nucleated RBC % 0.0 (0.0-0.3) % Absolute Neutrophils 4.91 (1.2-6.7) 10^3/uL Absolute Lymphocytes 2.21 (1.2-3.4) 10^3/uL Absolute Monocytes 1.42 H (0.1-0.8) 10^3/uL Absolute Eosinophils 0.26 (0.0-0.7) 10^3/uL Absolute Basophils 0.02 (0.0-0.2) 10^3/uL Sodium 140 (136-145) mmol/L Potassium 3.2 L (3.5-5.1) mmol/L Chloride 106 (98-107) mmol/L Carbon Dioxide 23.6 (21.0-32.0) mmol/L Anion Gap 10.4 (3-11) mmol/L BUN 11 (7-18) mg/dL Creatinine 0.9 (0.70-1.30) mg/dL Est GFR (CKD-EPI 2020) 88.51 (mL/min/1.73m2) Glucose 97 (74-106) mg/dL Calcium 8.5 (8.5-10.1) mg/dL Magnesium 1.6 L (1.8-2.4) mg/dL Total Bilirubin 0.44 (0.2-1.0) mg/dL AST 17 (15-37) U/L ALT 22 (16-63) U/L Alkaline Phosphatase 122 H (46-116) U/L Troponin I < 50 < 50 (< or =60) ng/L NT-Pro-B Natriuret Pep 239 (<300) pg/mL Total Protein 6.8 (6.4-8.2) g/dL Albumin 3.3 L (3.4-5.0) g/dL Lipase 14 L (16-77) U/L Urine Color Yellow (Yellow) Urine Clarity Clear (Clear) Urine pH 6.0 (5-8) Ur Specific [place] 1.025 (1.005-1.025) Urine Protein Trace (Neg-Trace) mg/dL Urine Ketones Trace H (Negative) mg/dL Urine Blood Negative (Negative) Urine Nitrite Negative (Negative) Urine Bilirubin Small H (Negative) Urine Urobilinogen 0.2 (Up to 0.2) mg/dL Ur Leukocyte Esterase Negative (Negative) Urine Glucose Negative (Negative) mg/dL Intake and Output - 24 Hour Total 01/02/24 17:54 thru 01/03/24 00:21 Intake Total 1010 Output Total 250 Balance 760 Weight 66.224 kg Intake: IV 1010 Output: Gastric Drainage 250 Right Nare 250 Other: Urine Appearance Clear Falls Risk Assessment History of Falls No History 01/03/24 00:21 Contributing Factors Confusion,Unstable 01/02/24 19:02 Ambulatory Aids Independent 01/03/24 00:21 Tubes/Lines W/no contributing factors 01/03/24 00:21 Gait Evaluation No gait disturbance 01/03/24 00:21 Fall Total Score 10 01/03/24 00:21 Level of Risk Standard/Low Risk 01/03/24 00:21 v v v v v v v v v Sending and/or Receiving Nurses: Please use comment section below to note any information pertinent to the patient hand-off not included above. Information / Comments: Pt experiencing n/v, abd distention; positive BS x 4 quadrants, LBM diarrhea 01/02/24. NGT placed to r nare at 63 cm, pt reports feeling better since NGT placement. NGT initially placed at continuous suction withdrawing 400cc of yellow, cloudy drainage. Pt has had no magnesium replacement for most recent level of 1.6. Pt has clear lung sounds throughout, afebrile temp 36.2 bp 121/60 rr 18 95% on ra. Pt reports taking protonix and iron at bedtime. Report received from: Jeremiah Slaughter RN at [phone]
--- NOTE | 2024-01-03 08:16 | PDOC.CMIN ---
Date of service: 01/03/24 Time of Service: 08:16 Care Management Initial Assmt Initial Assessment Reason for Hospitalization: SBO Functional Status/Living Situation Patient Presentation: Murphy appeared to be sleeping comfortable when CM met with him, information is obtained by . During out conversation Jyoti asked if Murphy would need an MRI of his abdomen at some point, stating that he's already had Gangrene in his colon and part of it removed. CM messaged surgical for clarification and passed the message to CCRN. Town of Residence: [facility] Resides with: Spouse (Jyoti) Significant Other/Family: Local Natural Supports: Jyoti is his primary support person Brother Juan J Employment Status: Retired Instrumental Activities of Daily Living (ADLs): Independent (No license, provides transportation) Medications Medication Management: No Issues/Barriers identified Physical Functioning/Mobility Assistive Device: None Advance Directives Advance Directives: Do you have an Advance Directive: Y 12/23/19 11:52 AD On File at [facility]: Y 12/23/19 11:52 Date Asked 12/06/18 12/23/19 11:52 AD Date Reviewed 01/02/24 01/02/24 18:09 COLST On File at [facility] No 01/02/24 18:09 COLST Date Scanned Code Status Resuscitation Status Full Code Portal Pt does not currently have a portal and education provided: Yes Insurance Coverage/Financial Issues Insurance: ? BC/BS Federal Medicare Part A & B Financial Issues: None identified Care Team Visit Care Team Role Provider Type Jennifer Huang Primary Care Provider NURSE PRACTITIONER OLINDA Varma Emergency Provider PHYSICIANS RELIGIOUS EDUCATOR Dariel Cote MD Admit Provider NON-[facility] STAFF PHYSICIAN Attending Provider Discharge Potential Discharge Needs: Surgical F/U Appt Anticipated Barriers to Discharge: None Identified Patient/Family Education Needs: Review discharge instructions, discuss Ask Me Three Transportation: Private vehicle Plan: Anticipate Murphy will discharge home when medically cleared by Surgical. He will follow up with Surgery and outpatient colonoscopy is expected to happen at tertiary hospital, due to his cardiac risk. Jyoti will provide transportation, no new services are anticipated at this time. CM will follow. PFSH All Active Problems (Updated 01/03/24 @ 00:10 by LAMONTE LINCOLN) Hypokalemia (Acute) Hypomagnesemia (Acute) SBO (small bowel obstruction) (Acute) Diarrhea (Acute) Postop check (Acute) Pre-op evaluation (Acute) Seroma after procedure (Acute) Sigmoid volvulus (Acute) Ischemic colon (Acute) Shortness of breath (Acute) Hypoxemia (Acute) Postoperative ileus (Acute) Postoperative wound dehiscence (Acute) Anastomotic leak of intestine (Acute) Sepsis (Acute) Intra-abdominal abscess post-procedure (Acute) Wound infection after surgery (Acute) Hypotension (Acute) Malnutrition of mild degree (Acute) other (Acute) Malnutrition (Acute) Delayed surgical wound healing (Acute) Cellulitis (Acute) Tachycardia (Acute) Lymphadenopathy, inguinal (Acute) Medical History (Updated 01/03/24 @ 00:10 by LAMONTE LINCOLN) History of deviated nasal septum SVT (supraventricular tachycardia) BEING FOLLOWED BY TRIMMING MACHINE OPERATOR AT [facility] [place], [place]. 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 DENIES THIS Hyperlipidemia Hypertension Surgical History Hx of tonsillectomy Hx of adenoidectomy Hx of repair of left rotator cuff S/P left colectomy Total knee replacement status R knee S/P appendectomy Family History Mother Breast cancer Father Stroke Social History Smoking/Tobacco Use Status: Former Tobacco Use Quit Date: 06/04/19 Smoking risk assessment performed?: Yes Alcohol Intake: current Alcohol Intake frequency: 3 or more drinks per day Alcohol type: beer Drug use: Never Substance use type: does not use Details: alcohol: t-2, one beer Housing: house Current gender identity: male Do you feel safe at home: Yes Do you feel safe in your relationship?: Yes SDOH(Care Management) Screening Will the Patient Participate in the Screening?: Yes Do you worry about having a steady place to live?: no Problems where you live: no known problems In the past 12 months, have you had to go without electric, gas, oil or water in your home?: no Have you or anyone in your house had to go without enough food to eat?: no Has lack of transportation kept you from medical appointments or from doing things needed for daily living?: no Has anyone in your support network made you feel unsafe for any reason?: no
--- NOTE | 2024-01-03 09:49 | W.PM.HP.N ---
Date of service: 01/03/24 Time of Service: 09:50 Assessment and Plan Assessment and plan (1) SBO (small bowel obstruction): Status: Acute Assessment and plan: The patient had imaging studies which are consistent with a bowel obstruction. He is feeling much better this morning. He continues to have bowel function. We will have his NG tube pulled and resume a diet. If he tolerates, we will allow him to be discharge home later today. (2) Diarrhea: Status: Acute Assessment and plan: The patient reports he has been having diarrhea for the last 10 days. The patient denies any recent use of antibiotics. We will test the next episode of diarrhea for C. difficile, and test stool for ova and parasites. (3) Hypokalemia: Status: Acute Assessment and plan: Low potassium on initial presentation. This was corrected in the emergency department. We will get a recheck and asked the patient to follow-up with his primary care provider for further treatment. History of Present Illness History of Present Illness Chief Complaint: Diarrhea, abdominal pain Narrative: Patient is a 78-year-old male who reports a 10-day history of diarrhea who presented to the emergency department. His workup included laboratory evaluation and imaging studies. The patient was found to have multiple loops of dilated bowel without an obvious transition point concerning for possible bowel obstruction. His laboratory evaluation demonstrated mild hypokalemia at 3.2 but was otherwise unremarkable. The patient and the NG tube placed in the emergency department and general surgery was contacted for admission for bowel obstruction. Bridging orders were written and the patient was admitted. At the time of my visit, the patient was resting in bed. He reports feeling better after the NG tube was placed, but has had additional large bowel movements overnight. He denies any new complaints or concerns. He reports he has had no episodes of nausea or vomiting, but has had severe diarrhea for the last 10 days. He denies any recent use of antibiotics. He denies any other complaints or concerns at this time. The patient was unable to tell me when his last colonoscopy was. The patient indicates he was scheduled for colonoscopy in November, but this had to be canceled due to his aortic stenosis. The patient was told he need to be referred elsewhere for colonoscopy. Review of Systems Constitutional Constitutional: Denies fever(s), Denies headache(s) and Denies weakness Eyes Eyes: Denies change in vision ENT Ears, Nose, Mouth, and Throat: Denies dysphagia and Denies headache(s) Cardiovascular Cardiovascular: Denies chest pain and Denies dyspnea Respiratory Respiratory: Denies dyspnea Gastrointestinal Gastrointestinal: Reports abdominal pain, Reports change in stool character, Denies dysphagia and Reports diarrhea Genitourinary Genitourinary: Denies hematuria Musculoskeletal Musculoskeletal: Denies back pain Neurologic Neurologic: Denies headache(s) and Denies weakness PFSH All Active Problems (Updated 01/03/24 @ 00:10 by LAMONTE LINCOLN) Hypokalemia (Acute) Hypomagnesemia (Acute) SBO (small bowel obstruction) (Acute) Diarrhea (Acute) Postop check (Acute) Pre-op evaluation (Acute) Seroma after procedure (Acute) Sigmoid volvulus (Acute) Ischemic colon (Acute) Shortness of breath (Acute) Hypoxemia (Acute) Postoperative ileus (Acute) Postoperative wound dehiscence (Acute) Anastomotic leak of intestine (Acute) Sepsis (Acute) Intra-abdominal abscess post-procedure (Acute) Wound infection after surgery (Acute) Hypotension (Acute) Malnutrition of mild degree (Acute) other (Acute) Malnutrition (Acute) Delayed surgical wound healing (Acute) Cellulitis (Acute) Tachycardia (Acute) Lymphadenopathy, inguinal (Acute) Medical History (Updated 01/03/24 @ 00:10 by LAMONTE LINCOLN) History of deviated nasal septum SVT (supraventricular tachycardia) BEING FOLLOWED BY [facility] [facility] [place] [facility] 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 DENIES THIS Hyperlipidemia Hypertension Surgical History Hx of tonsillectomy Hx of adenoidectomy Hx of repair of left rotator cuff S/P left colectomy Total knee replacement status R knee S/P appendectomy Family History Mother Breast cancer Father Stroke Social History Smoking/Tobacco Use Status: Former Tobacco Use Quit Date: 06/04/19 Smoking risk assessment performed?: Yes Alcohol Intake: current Alcohol Intake frequency: 3 or more drinks per day Alcohol type: beer Drug use: Never Substance use type: does not use Details: alcohol: t-2, one beer Housing: house Current gender identity: male Do you feel safe at home: Yes Do you feel safe in your relationship?: Yes Meds Allergies and Home Medications Allergies Allergy/AdvReac Type Severity Reaction Status Date / Time candesartan (From Atacand) Allergy Mild SOB/Rash Verified 01/01/24 11:22 lisinopril Allergy Mild Numbness & Verified 01/01/24 11:22 tongue swelling Home Medications ?Medication ?Instructions ?Recorded ?Confirmed ?Type atorvastatin 20 mg tablet (Lipitor) 20 mg PO DAILY 12/04/17 01/02/24 History acetaminophen 325 mg tablet 650 mg (2 x 325 mg) PO Q6H PRN PRN 12/25/17 01/02/24 Rx (Tylenol) ibuprofen 200 mg tablet (Advil) 400 mg PO PRN PRN 12/09/18 01/02/24 History ferrous sulfate 325 mg (65 mg 325 mg PO DAILY 11/12/23 01/02/24 History iron) tablet magnesium 250 mg tablet 250 mg PO DAILY 11/12/23 01/02/24 History metoprolol succinate 25 mg 12.5 mg PO DAILY 11/12/23 01/02/24 History tablet,extended release 24 hr metoprolol tartrate 25 mg tablet 25 mg PO ONCE PRN 11/12/23 01/02/24 History multivitamin 1 tab PO DAILY 11/12/23 01/02/24 History pantoprazole 40 mg tablet,delayed 40 mg PO DAILY 11/12/23 01/02/24 History release Exam Const General: cooperative, healthy appearing, comfortable and no acute distress [facility] Head: normocephalic and atraumatic Resp Effort & Inspection: normal respiratory effort Cardio Jugular venous pressure: no JVD Rate: regular rate Heart Sounds: murmur (III/ ejection murmur) systolic GI Inspection: non-distended, incision and scar Palpation: soft, no guarding, hernia, not rigid and nontender Auscultation: normal bowel sounds and no high pitched sounds Skin General skin exam: no rashes or lesions noted Neuro General: patient alert, patient awake, patient oriented x3 and moves all extremities Extrem General: no pedal edema Psych Appearance: grossly normal Affect: normal affect Results Imaging Abdomen CT scan report/results: report reviewed and image reviewed CT scan - chest: report reviewed and image reviewed Imaging Studies: The CT scan of the chest/abdomen/pelvis were independently reviewed and interpreted. No hemopneumothorax, no PE. Abdomen/pelvis appears to show dilated loops of small bowel and large bowel as well as a dilated stomach. No obvious transition point is identified on exam, but it appears to be narrowed in the distal sigmoid colon, noted in the midabdomen on imaging. No obvious masses identified. Ventral hernia noted. Labs 01/02/24 19:05 01/02/24 19:05 Labs: Laboratory Results - last 24 hr 01/02/24 01/02/24 01/02/24 19:05 20:51 22:32 WBC 8.84 RBC 4.62 Hgb 14.5 Hct 43.1 MCV 93 MCH 31.4 MCHC 33.6 RDW 13.2 Plt Count 244 MPV 10.3 Immature Gran % 0.2 Neutrophils % 55.6 Lymphocytes % 25.0 Monocytes % 16.1 Eosinophils % 2.9 Basophils % 0.2 Nucleated RBC % 0.0 Absolute Neutrophils 4.91 Absolute Lymphocytes 2.21 Absolute Monocytes 1.42 H Absolute Eosinophils 0.26 Absolute Basophils 0.02 Sodium 140 Potassium 3.2 L Chloride 106 Carbon Dioxide 23.6 Anion Gap 10.4 BUN 11 Creatinine 0.9 Est GFR (CKD-EPI 2020) 88.51 Glucose 97 Calcium 8.5 Magnesium 1.6 L Total Bilirubin 0.44 AST 17 ALT 22 Alkaline Phosphatase 122 H Troponin I < 50 < 50 NT-Pro-B Natriuret Pep 239 Total Protein 6.8 Albumin 3.3 L Lipase 14 L Urine Color Yellow Urine Clarity Clear Urine pH 6.0 Ur Specific [place] 1.025 Urine Protein Trace Urine Ketones Trace H Urine Blood Negative Urine Nitrite Negative Urine Bilirubin Small H Urine Urobilinogen 0.2 Ur Leukocyte Esterase Negative Urine Glucose Negative Last Vital Signs Temp 37 C 01/03/24 07:05 Pulse 62 01/03/24 07:05 Resp 18 01/03/24 07:05 BP 101/60 01/03/24 07:05 Pulse Ox 93 01/03/24 07:05 Time Spent Time spent with Patient: 40-54 minutes Time was spent: preparing to see the patient(eg.review tests), ordering medications,tests, procedures, indepentently interpreting results and counseling the patient
[2024-01-03 11:43] LABS: Anion Gap 8.4 mmol/L (3-11); BUN 10 mg/dL (7-18); CO2 26.6 mmol/L (21.0-32.0); CREATININE 0.7 mg/dL (0.70-1.30); Calcium 8.2 mg/dL (8.5-10.1); Chloride 108 mmol/L (98-107); Estimated GFR 95.49 (mL/min/1.73m2); Glucose 90 mg/dL (74-106); Potassium 3.2 mmol/L (3.5-5.1); Sodium 143 mmol/L (136-145)
--- NOTE | 2024-01-03 12:11 | PHA.REVIEW2 ---
Pharmacy Admission Review Admission Clinical Review Admission Pharmacy Review: Hypokalemia (Acute) SBO (small bowel obstruction) (Acute) Diarrhea (Acute) candesartan (From Atacand) Allergy (Mild, Verified 01/01/24 11:22) SOB/Rash lisinopril Allergy (Mild, Verified 01/01/24 11:22) Numbness & tongue swelling Resuscitation Status Full Code Height 5 ft 9 in Weight 66.224 kg Comments Comments/Follow Ups: NG tube was placed in ER last night. Per H+P, NG tube will be removed today and if patient tolerates then will be discharged later today Pharmacy Admission Review Renal Dosing Renal Dosing: BUN 10 mg/dL (7-18) 01/03/24 11:25 Creatinine 0.7 mg/dL (0.70-1.30) 01/03/24 11:25 Medications needing adjustments: Reviewed (CrCl 58.87 mL/min) List of meds needing interventions: Current medications are okay Anticoagulation Anticoagulation: Hgb 14.5 g/dL (13.5-17.5) 01/02/24 19:05 Hct 43.1 % (40.0-50.0) 01/02/24 19:05 Plt Count 244 10^3/uL (130-400) 01/02/24 19:05 Creatinine 0.7 mg/dL (0.70-1.30) 01/03/24 11:25 DVT Prophylaxis: Reviewed (None - discuss with provider if patient not discharged today) Relevant Labs Relevant Labs: Sodium 143 mmol/L (136-145) 01/03/24 11:25 Potassium 3.2 mmol/L (3.5-5.1) L 01/03/24 11:25 Chloride 108 mmol/L (98-107) H 01/03/24 11:25 Magnesium 1.6 mg/dL (1.8-2.4) L 01/02/24 19:05 Electrolytes, C-Reactive P, ESR: Reviewed (K 3.2 - repleting) Cardiac Review Cardiac Review: Troponin I < 50 ng/L (< or =60) 01/02/24 22:32 NT-Pro-B Natriuret Pep 239 pg/mL (<300) 01/02/24 19:05 BP, HR, EF%: Reviewed (BP and HR WNL) QTc Review QTc: Reviewed (422 from 01/02/24) IV to PO Switch IV Medications: Reviewed (potassium infusion and prochlorperazine) Home Meds Home Med List reviewed: Reviewed Current Meds Current Medication Order Review: Intervened Comments: Added IV admission order set Changed atorvastatin timing from morning to evening based on patients home med list Changed timing of pantoprazole from 0830 to 0730 per pharmacy protocol Comments Comments/Follow Ups: NG tube was placed in ER last night. Per H+P, NG tube will be removed today and if patient tolerates then will be discharged later today
[2024-01-03 15:13] VITALS: BP 99/59; PULSE 63; RESP 18; TEMP 36.9; O2SAT 94
[2024-01-03 15:13] LABS: C Diff PCR Negative (Negative)
--- NOTE | 2024-01-03 17:08 | PDOC.CMDIS ---
Date of service: 01/03/24 Time of Service: 17:08 Care Management Discharge Plan Reason for Hospitalization: SBO Discharge Plan: Waiting for discharge documentation. SDOH Health Related Social Needs: No Data to Display
== END 2024-01-03 15:49 | disposition home or self-care (01) ==
LOC: ER 23:05 → MS 01-03 08:01
PROVIDERS: Admitting Provider Surgery; Emergency Provider Physician Assistant; PCP Nurse Practitioner Family; Visit Provider Surgery
DX: K56.609 Unspecified intestinal obstruction, unspecified as to partial versus complete obstruction (principal); E87.6 Hypokalemia; R19.7 Diarrhea, unspecified; R10.9 Unspecified abdominal pain; E44.1 Mild protein-calorie malnutrition; I47.10 Supraventricular tachycardia, unspecified; E78.5 Hyperlipidemia, unspecified; I10 Essential (primary) hypertension; Z96.651 Presence of right artificial knee joint; Z79.899 Other long term (current) drug therapy; I65.29 Occlusion and stenosis of unspecified carotid artery
CPT/HCPCS: 00123; 36415; 71275; 74177; 80048; 80053; 83690; 87493; 93005; 94640; 96361; 96374; 96376; 99222; 99285; 74018; 81003; 83735; 83880; 84484; 85025; 87177; 93010; J0780; J3490; J7613

== ENCOUNTER 2024-01-25 18:22 | Outpatient (REF) | payer MEDICARE, BC, SELFPAY ==
[2024-01-25 16:03] LABS: Anion Gap 4.4 mmol/L (3-11); BUN 13 mg/dL (7-18); CO2 30.6 mmol/L (21.0-32.0); Chloride 105 mmol/L (98-107); Glucose 73 mg/dL (74-106); Sodium 140 mmol/L (136-145)
[2024-01-25 16:47] LABS: Potassium 6.2 mmol/L (3.5-5.1)
== END 2024-01-25 18:23 | disposition home or self-care (01) ==
LOC: NCHCN 18:22
PROVIDERS: PCP Nurse Practitioner Family; Visit Provider Nurse Practitioner Family
DX: I10 Essential (primary) hypertension (principal)
CPT/HCPCS: 80048

== ENCOUNTER 2024-01-26 12:01 | Outpatient (CLI) | payer MEDICARE, BC, SELFPAY ==
[2024-01-26 11:09] LABS: Anion Gap 8.7 mmol/L (3-11); BUN 8 mg/dL (7-18); CO2 28.3 mmol/L (21.0-32.0); CREATININE 0.8 mg/dL (0.70-1.30); Calcium 9.5 mg/dL (8.5-10.1); Chloride 103 mmol/L (98-107); Estimated GFR 91.72 (mL/min/1.73m2); Glucose 96 mg/dL (74-106); Sodium 140 mmol/L (136-145)
== END 2024-01-26 12:02 | disposition home or self-care (01) ==
LOC: LBO 12:04
PROVIDERS: PCP Nurse Practitioner Family; Visit Provider Nurse Practitioner Family
DX: E87.5 Hyperkalemia (principal)
CPT/HCPCS: 36415; 80048

== ENCOUNTER 2025-01-26 03:17 | Outpatient (CLI) | payer MEDICARE, BC, SELFPAY ==
[2025-01-26] MEDS: Gadoterate meglumine 20 ML VIAL IVP (13:20)
--- NOTE | 2025-01-26 13:50 | DI.MRI_ITS ---
Exam(s) MR ABDOMEN WO/W EXAM: MR ABDOMEN WO/W CLINICAL HISTORY: F/U ABNL CTA,R93.89,PRE TAVR CTA SHOWED HYPERVASCULAR FOCUS WITHIN LIVER TECHNIQUE: Multiplanar multisequence MRI of the Abdomen was performed. CONTRAST MATERIAL: IV Contrast: 16 mL of Dotarem contrast administered. COMPARISON: CT CT ANGIOGRAM ABDOMEN AND PELVIS W CONTRAST (STANDARD) from 12/27/2024 FINDINGS: Lung bases: Unremarkable. Liver: There are few tiny nonenhancing cysts in the liver. No mass or abnormal enhancement is seen posterior to the left hepatic vein to correspond to the finding on the CT scan from 12/27/2024. No suspicious hepatic masses are seen. Pancreas: Unremarkable. Gallbladder and Bile Ducts: Gallstones are present. There is no biliary ductal dilatation. Adrenals: Unremarkable. Kidneys: There is no evidence of obstructive uropathy. There are bilateral simple renal cysts. No follow-up is recommended. No suspicious renal masses are present. Spleen: Unremarkable. Bowel: The bowel gas pattern is nonspecific. There are mildly dilated loops of small and large bowel which may represent an ileus. There is no bowel wall thickening. Aorta: Unremarkable. Soft Tissues: There is a defect in the anterior abdominal wall containing loops of small and large bowel. No obstruction is seen. Bone: Age-appropriate degenerative changes are seen in the lumbar spine the findings result in marked central spinal canal stenosis at L4-L5. Lymph Nodes: Unremarkable. IMPRESSION: 1. No masses seen in the liver posterior to the left hepatic vein to correspond to the finding seen on the CT scan from 12/27/2024. A follow-up three-phase CT scan of the liver should be considered for further evaluation. 2. Simple hepatic cysts. 3. Cholelithiasis. There is no biliary ductal dilatation. DATA REPOSITORY:
== END 2025-01-26 03:37 ==
PROVIDERS: PCP Nurse Practitioner Family; Visit Provider Nurse Practitioner Family
DX: R93.89 Abnormal findings on diagnostic imaging of other specified body structures (principal)
CPT/HCPCS: 74183

== ENCOUNTER 2025-03-24 03:13 | Outpatient (CLI) | payer MEDICARE, BC, SELFPAY ==
--- NOTE | 2025-03-24 | DI.US_ITS ---
APPROVED REPORT EXAM: Comprehensive 2D, Doppler, and color-flow Echocardiogram Patient Location: Out-Patient Production Bow Maker: Radha Mathur RDCS (AE) Indications: S/P TAVR 03/2025 Other Information Study Quality: Fair. Technically limited study due to body habitus, scan done in a very steep LLD. Conclusion Normal left ventricular wall thickness chamber size and overall systolic function. No wall motion abnormalities are appreciated Right ventricle is not well-visualized but does not appear significantly enlarged Both atria are normal in size There is a bioprosthetic aortic valve. Mean gradient is 5 mmHg. There is no regurgitation Mild mitral annular calcification Wall motion Left Ventricle Technically limited, very low imaging window. The overall left ventricular systolic function appears normal. Regional wall motion is grossly normal. LVEF is 56%. Right Ventricle Right ventricle is not well visualized. Right ventricular systolic function could not be assessed. Atria The left atrium size is normal. The right atrium size is normal. Aortic Valve There is no aortic valvular stenosis. Mean gradient is 5 mmHg No aortic regurgitation is present. TAVR aortic valve. Mitral Valve Mild mitral annular calcification. No evidence of mitral valve stenosis. Trace mitral regurgitation. Tricuspid Valve The tricuspid valve is normal in structure. There is no tricuspid valve stenosis. Trace tricuspid regurgitation. Unable to assess PA pressure. Pulmonic Valve The pulmonary valve is normal in structure. There is no pulmonic valvular stenosis. There is no pulmonic valvular regurgitation. Great Vessels The aortic root is normal in size. Ascending aorta is not well visualized. The IVC was not visualized. Technically limited subcostal imaging. Pericardium Technically limited subcostal imaging. 2D Dimensions Ao Root d 2.06 cm M: 3.1 - 3.7 M-Mode TAPSE 2.42 cm (M/F) >1.7 Auto EF LV EDV A4C 106.5 mL LV EDV A2C 109.0 mL LV EDV BP 107.9 mL LV ESV A4C 47.9 mL LV ESV A2C 47.0 mL LV ESV BP 47.5 mL LVEF(%) A4C 55.0 % LVEF(%) A2C 56.9 % LVEF(%) BP 56.0 % LV SV A4C 58.6 ml LV SV A2C 62.0 ml LV SV BP 60.4 ml LV CO A4C 3.6 L/min LV CO A2C 3.9 L/min LV CO BP 3.7 L/min HR A4C 61.02 BPM HR A2C 62.18 BPM LV EDV Index (BP) LA Volume LA Length A4C 4.6 cm LA Length A2C 5.9 cm LA Area A4C s 13.63 cm2 LA Area A2C s 19.48 cm2 LA Vol A4C A-L 34.44 mL LA Vol A2C A-L 54.33 mL LA Vol Biplane A-L 49.2 mL LA Vol/BSA A4C A-L LA Vol/BSA A2C A-L LA Vol/BSA BP A-L 25.9 mL/m2 LA Vol A4C MOD 31.9 mL LA Vol A2C MOD 51.5 mL LA Vol BP MOD 46.0 mL LV Diastology MV E' medial 0.077 (>0.07 m/s) MV E Vmax 0.83 (0.4-1.3 m/s) MV E/E' MED 10.81 (<14) MV A Vmax 0.95 (0.4-1.3 m/s) MV E' lateral 0.079 (>0.1 m/s) E/A Ratio 0.9 MV E/E' LAT 10.44 (<14) MV E' Average 0.078 m/s MV E/E'(average) 10.62 Aortic Valve AoV Vmax 1.61 m/s LVOT Vmax 1.15 m/s AoV Peak Grad 10.4 mmHg LVOT Peak Grad 5.2 mmHg AoV Area (Vmax) 1.93 cm2 LVOT VTI 0.285 m AoV VTI 0.342 m LVOT Mean Grad 3.0 mmHg AoV Mean Robert. 0.99 m/s LVOT SV 77.45 mL AoV Mean Grad 4.7 mmHg LVOT Diam s 1.85 cm AoV Area (VTI) 2.27 cm2 AV Regurg Peak Gr. 10.36 mmHg Velocity Ratio 0.71 Mitral Valve MV DT 263 (160-240 msec) MV Vmax TIPS 0.86 m/s MV Mean Grad 1.0 (<2mmHg) MV VTI 0.307 m Pulmonary Valve PV Vmax 0.82 (0.5-1.5 m/s) RVOT Vmax 0.79 m/s PV Peak Grad 2.7 mmHg RVOT Peak Gr. 2.5 mmHg PV Mean Robert 0.61 m/s RVOT VTI 0.165 m PV Mean Grad 1.7 mmHg RVOT Mean Gr. 1.5 mmHg Tricuspid Valve TV S' 0.14 m/s
== END 2025-03-24 03:33 ==
LOC: DI 03:13
PROVIDERS: PCP Nurse Practitioner Family; Visit Provider Physician Assistant Surgical
DX: I34.81 Nonrheumatic mitral (valve) annulus calcification (principal); Z95.2 Presence of prosthetic heart valve
CPT/HCPCS: 93306

== ENCOUNTER 2025-03-24 03:22 | Outpatient (CLI) | payer MEDICARE, BC, SELFPAY ==
[2025-03-24 13:38] LABS: Abs Immature Grans 0.03 10^3/uL (0.0-0.06); HCT 41.1 % (40.0-50.0); HGB 13.3 g/dL (13.5-17.5); Immature Grans % 0.3 %; MCH 30.2 pg (27.0-33.0); MCHC 32.4 % (32.0-36.0); MCV 93 fL (80-95); MPV 9.8 fL (8.0-11.0); Platelet Count 323 10^3/uL (130-400); RBC 4.41 10^6/uL (4.36-5.78); RDW 12.9 % (11.8-14.1); RDW-SD 44.2 fL; WBC 8.93 10^3/uL (4.4-10.8)
[2025-03-24 14:08] LABS: Magnesium 2.1 mg/dL (1.8-2.4)
[2025-03-24 14:19] LABS: ALT 18 U/L (16-63); AST 16 U/L (15-37); Albumin 3.8 g/dL (3.4-5.0); Alkaline Phosphatase 213 U/L (46-116); Anion Gap 9.0 mmol/L (3-11); BUN 9 mg/dL (7-18); Bilirubin, Total 0.8 mg/dL (0.2-1.0); CO2 29.0 mmol/L (21.0-32.0); Calcium 9.6 mg/dL (8.5-10.1); Chloride 101 mmol/L (98-107); Estimated GFR 91.15 (mL/min/1.73m2); Glucose 96 mg/dL (74-106); Potassium 4.0 mmol/L (3.5-5.1); Sodium 139 mmol/L (136-145); Total Protein 7.9 g/dL (6.4-8.2)
== END 2025-03-24 03:23 | disposition home or self-care (01) ==
PROVIDERS: PCP Nurse Practitioner Family; Visit Provider Physician Assistant Surgical
DX: E61.2 Magnesium deficiency (principal); Z86.2 Personal history of diseases of the blood and blood-forming organs and certain disorders involving the immune mechanism
CPT/HCPCS: 36415; 80053; 85027; 93306; 83735; 85025